=== PATIENT | male | born 1950 | race Caucasian/White ===

== ENCOUNTER 2019-04-24 10:08 | Inpatient (IN) | payer MEDICARE, OTHER ==
[~2019-04-24] VITALS: Ht 172.7 cm; Wt 117.9 kg
--- NOTE | 2019-04-24 10:39 | NUR ---
ED Nurse Note: PT WALKED IN TO ER TODAY FROM HOME. AOX4. PT C/O NAUSEA AND MULTIPLE EPISODES OF VOMITING X 2 DAYS AGO. PT DENIES ABDOMINAL PAIN OR DIARRHEA. ACTIVE BOWEL SOUNDS IN ALL QUADRANTS. ABDOMEN NONDISTENDED AND NONTENDER TO PALPATION. LAST BM X LAST NIGHT WHICH PT STATES WAS FORMED.
[2019-04-24 10:40] VITALS: BP 103/47
--- NOTE | 2019-04-24 10:41 | NUR ---
ED Nurse Note: ON ASSESSMENT, THERE IS AN OBVIOUS SUBLUXATION OF LEFT SHOULDER. PT STATES HE HAD A FALL X 2 MONTHS AGO AND WAS SEEN BY A DOCTOR AND WAS PROVIDED A SPLINT. PT DENIES PAIN AT REST BUT DOES ADMIT TO PAIN WITH ACTIVITY. LIMITED ROM OF LEFT UPPER EXTREMITY.
--- NOTE | 2019-04-24 10:46 | NUR ---
ED Nurse Note: PT INFORMED URINE SPECIMEN IS NEEEDED. PT STATES HE CANNOT URINATE AT THIS TIME AND REFUSES STRAIGHT CATHETER. DR ZHENG AWARE.
[2019-04-24 10:51] LABS: HEMATOCRIT 49.5 % (42.0-52.0); HEMOGLOBIN 17.4 G/DL (14.2-18.0); MEAN CORPUSCULAR VOLUME 88 FL (80-99); PLATELET COUNT 333 K/UL (150-450); RED BLOOD COUNT 5.65 M/UL (4.70-6.10); WHITE BLOOD COUNT 21.6 K/UL (4.8-10.8)
[2019-04-24 10:56] LABS: ANION GAP 18 mmol/L (5-15); BLOOD UREA NITROGEN 127 mg/dL (7-18); CALCIUM 7.7 MG/DL (8.5-10.1); CARBON DIOXIDE 23 MMOL/L (21-32); CHLORIDE 83 MMOL/L (98-107); CREATININE 8.4 MG/DL (0.55-1.30); POTASSIUM 4.6 MMOL/L (3.5-5.1); SODIUM 124 MMOL/L (136-145)
[2019-04-24] MEDS ORDERED: Isovue-300 100ml vial INJ PRN (11:00)
[2019-04-24 11:09] LABS: ALANINE AMINOTRANSFERASE 22 U/L (12-78); ALBUMIN 4.1 G/DL (3.4-5.0); ALBUMIN/GLOBULIN RATIO 1.2 (1.0-2.7); ALKALINE PHOSPHATASE 73 U/L (46-116); ASPARTATE AMINO TRANSFERASE 22 U/L (15-37); BILIRUBIN,TOTAL 1.7 MG/DL (0.2-1.0)
[2019-04-24 11:32] LABS: BILIRUBIN,DIRECT 0.5 MG/DL (0.0-0.3)
--- NOTE | 2019-04-24 11:40 | NUR ---
ED Nurse Note: PT TO CT VIA SHERI.
--- NOTE | 2019-04-24 12:06 | NUR ---
ED Nurse Note: PT BACK FROM CT VIA SHERI.
--- NOTE | 2019-04-24 12:07 | NUR ---
ED Nurse Note: TELE UNIT CALLED FOR PT REPORT. REPORT GIVEN TO MESFIN DYE.
--- NOTE | 2019-04-24 12:07 | NUR ---
Note skyla in EDM - 04/24/19 at 1226 by YAHIR ED Nurse Note: TELE UNIT CALLED FOR PT REPORT. REPORT GIVEN TO MESFIN DYE. PT TAKEN UP TO TELE UNIT VIA MILEY ON SKEWER UP WITH ALL BELONGINGS ACCOMPANIED BY PRIMARY RN AND EMT. VSS.
[2019-04-24] MEDS ORDERED: cefTRIAXone 1 GM in NS 55 ML IVPB ONE (12:15)
--- NOTE | 2019-04-24 12:15 | Diagnostic Imaging Report ---
EXAM: XR Chest, 1 View CLINICAL HISTORY: WEAK TECHNIQUE: Frontal view of the chest. COMPARISON: No relevant prior studies available. FINDINGS: Limitations: The left costophrenic angle is partially excluded from view. Lungs: Unremarkable. The lungs appear clear. No focal consolidation. Pleural space: Unremarkable. The costophrenic angles are sharp. No visible pneumothorax. Heart: Unremarkable. No cardiomegaly. Mediastinum: Unremarkable. Bones/joints: Unremarkable. Tubes, lines and devices: EKG leads overlie the thorax. IMPRESSION: No acute findings.
--- NOTE | 2019-04-24 12:27 | Diagnostic Imaging Report ---
EXAM: CT Abdomen and Pelvis With Intravenous Contrast CLINICAL HISTORY: VOMITING TECHNIQUE: Axial computed tomography images of the abdomen and pelvis with intravenous contrast. CTDI is 18.60 mGy and DLP is 1068 mGy-cm. One or more of the following dose reduction techniques were used: automated exposure control, adjustment of the mA and/or kV according to patient size, use of iterative reconstruction technique. Coronal and sagittal reformatted images were created and reviewed. COMPARISON: No relevant prior studies available. FINDINGS: Lung bases: Mild dependent atelectasis in the right lung base. ABDOMEN: Liver: Unremarkable. No suspicious parenchymal lesions Gallbladder and bile ducts: Unremarkable. No calcified stones. No ductal dilation. Pancreas: Unremarkable. No mass. No ductal dilation. Spleen: Unremarkable. No splenomegaly. Adrenals: 1.7 cm left adrenal nodule with internal density of 6 Hounsfield units, most likely a benign adenoma. Kidneys and ureters: Unremarkable. No solid mass. No hydronephrosis. Stomach and bowel: Moderate distention of proximal small bowel loops with luminal air-fluid levels, with maximum diameter 3.8 cm, most prominent in the left upper quadrant. Transition point is not definitively identified, but may be in the central abdomen. Descending and sigmoid colonic diverticulosis without evidence of acute inflammation. Remainder of the colon appears unremarkable. No mucosal thickening. PELVIS: Appendix: The appendix appears normal. Bladder: Unremarkable. No visible stones. Reproductive: Unremarkable as visualized. ABDOMEN and PELVIS: Intraperitoneal space: Unremarkable. No free air. No significant fluid collection. Bones/joints: Multilevel degenerative changes throughout the visualized spine with disc space loss and endplate osteophytes. No acute fracture. No dislocation. Soft tissues: Fat-containing umbilical herniation. Hernia sac measures 4.9 x 4.0 x 2.8 cm with hernia neck diameter of 1.4 cm. Stranding within the herniated fat may suggest fatty torsion and may be a source of pain. Vasculature: Atherosclerosis throughout the abdominal aorta and its proximal branches. No abdominal aortic aneurysm. Lymph nodes: Unremarkable. No enlarged lymph nodes. IMPRESSION: 1. Moderate distention of proximal small bowel loops with luminal air- fluid levels, with maximum diameter 3.8 cm, most prominent in the left upper quadrant. Transition point is not definitively identified, but may be in the central abdomen. This may represent ileus versus partial obstruction. 2. Fat-containing umbilical herniation. Hernia sac measures 4.9 x 4.0 x 2.8 cm with hernia neck diameter of 1.4 cm. Stranding within the herniated fat may suggest fatty torsion and may be a source of pain. 3. Descending and sigmoid colonic diverticulosis without evidence of acute inflammation. 4. 1.7 cm left adrenal nodule, most likely a benign adenoma.
--- NOTE | 2019-04-24 12:39 | Emergency Room Report ---
History of Present Illness General Chief Complaint: Nausea, Vomiting, and Diarrhea Source: Patient Present Illness HPI 68-year-old male presents ED for evaluation. Patient walked in complaining of nausea and vomiting for the last 2 days. States he is unable to keep any food down. Multiple episodes of vomiting denies any abdominal pain. Denies any fevers or chills. Denies cough. Denies any diarrhea. No other aggravating or relieving factors. Denies any other associated symptoms Allergies: Coded Allergies: No Known Allergies (Unverified , 04/24/19) Patient History Past Medical History: DM, COPD, psych hx Pertinent Family History: none Social History: Denies: smoking, alcohol use, drug use Immunizations: UTD Reviewed Nursing Documentation: PMH: Agreed; PSxH: Agreed Nursing Documentation-PMH Past Medical History: No History, Except For Hx Cardiac Problems: Yes - Hyperlipidemia, Metabolic encephalopathy Hx COPD: Yes Hx Diabetes: Yes History Of Psychiatric Problem: Yes - Schizo Review of Systems All Other Systems: negative except mentioned in HPI Physical Exam Vital Signs Date Time Temp Pulse Resp B/P (MAP) Pulse Ox O2 Delivery O2 Flow Rate FiO2 04/24/19 10:13 98.2 96 20 91/68 (76) 91 Room Air Sp02 EP Interpretation: reviewed, normal General Appearance: no apparent distress, alert, GCS 15, non-toxic Head: normocephalic, atraumatic Eyes: bilateral eye normal inspection, bilateral eye PERRL ENT: hearing grossly normal, normal pharynx, no angioedema, normal voice Neck: full range of motion, supple/symm/no masses Respiratory: chest non-tender, lungs clear, normal breath sounds, speaking full sentences Cardiovascular #1: regular rate, rhythm, no edema Cardiovascular #2: 2+ carotid (R), 2+ carotid (L), 2+ radial (R), 2+ radial (L) , 2+ dorsalis pedis (R), 2+ dorsalis pedis (L) Gastrointestinal: normal bowel sounds, non tender, soft, non-distended, no guarding, no rebound Rectal: deferred Genitourinary: normal inspection, no CVA tenderness Musculoskeletal: back normal, gait/station normal, normal range of motion, non- tender Neurologic: alert, oriented x3, responsive, motor strength/tone normal, sensory intact, speech normal Psychiatric: judgement/insight normal, memory normal, mood/affect normal, no suicidal/homicidal ideation Reflexes: 3+ bicep (R), 3+ bicep (L), 3+ tricep (R), 3+ tricep (L), 3+ knee (R) , 3+ knee (L) Lymphatic: no adenopathy Medical Decision Making Diagnostic Impression: Primary Impression: Leukocytosis Qualified Codes: D72.829 - Elevated white blood cell count, unspecified Additional Impressions: LFT elevation Renal failure Qualified Codes: N17.9 - Acute kidney failure, unspecified Bowel obstruction Qualified Codes: K56.609 - Unspecified intestinal obstruction, unspecified as to partial versus complete obstruction ER Course Hospital Course 68-year-old male presents to ED with vomiting x 2 days Differential diagnoses include: bowel obstruction, dehydration, UTI Clinical course Patient placed on stretcher. air sampling and monitoring. After initial history and physical I ordered labs, IV fluids, Zofran Labs - marked leukocytosis, Hb/Hct stable, BUN/Cr markedly elevated. LFTS elevated. EKG - normal sinus with no acute ischemic changes determined by me X-rayno acute process or consolidation CT abdomen and pelvis - dilated loops of bowel with ? transition. ileus vs SBO IV fluids continued. Given antibiotics. T Dr Basurto consulted Case discussed with Dr. Acosta and he agreed to accept the patient to his service for further care and support I feel this is a highly complex case requiring extensive working including EKG/ Rhythm strip, Xray/CT/US, Blood/urine lab work, repeat exams while in ED, and administration of strong opiates/narcotics for pain control, admission to hospital or close patient follow up. Diagnosis - leukocytosis, LFTs elevated, renal failure, bowel obstruction Patient admitted to telemetry in serious condition Labs Test 04/24/19 10:37 04/24/19 12:18 White Blood Count 21.6 K/UL (4.8-10.8) Red Blood Count 5.65 M/UL (4.70-6.10) Hemoglobin 17.4 G/DL (14.2-18.0) Hematocrit 49.5 % (42.0-52.0) Mean Corpuscular Volume 88 FL (80-99) Mean Corpuscular Hemoglobin 30.7 PG (27.0-31.0) Mean Corpuscular Hemoglobin Concent 35.1 G/DL (32.0-36.0) Red Cell Distribution Width 11.0 % (11.6-14.8) Platelet Count 333 K/UL (150-450) Mean Platelet Volume 7.2 FL (6.5-10.1) Neutrophils (%) (Auto) % (45.0-75.0) Lymphocytes (%) (Auto) % (20.0-45.0) Monocytes (%) (Auto) % (1.0-10.0) Eosinophils (%) (Auto) % (0.0-3.0) Basophils (%) (Auto) % (0.0-2.0) Differential Total Cells Counted 100 Neutrophils % (Manual) 77 % (45-75) Lymphocytes % (Manual) 14 % (20-45) Monocytes % (Manual) 9 % (1-10) Eosinophils % (Manual) 0 % (0-3) Basophils % (Manual) 0 % (0-2) Band Neutrophils 0 % (0-8) Platelet Estimate Adequate Platelet Morphology Normal Red Blood Cell Morphology Normal Sodium Level 124 MMOL/L (136-145) Potassium Level 4.6 MMOL/L (3.5-5.1) Chloride Level 83 MMOL/L (98-107) Carbon Dioxide Level 23 MMOL/L (21-32) Anion Gap 18 mmol/L (5-15) Blood Urea Nitrogen 127 mg/dL (7-18) Creatinine 8.4 MG/DL (0.55-1.30) Estimat Glomerular Filtration Rate 6.4 mL/min (>60) Glucose Level 173 MG/DL (74-106) Calcium Level 7.7 MG/DL (8.5-10.1) Total Bilirubin 1.7 MG/DL (0.2-1.0) Direct Bilirubin 0.5 MG/DL (0.0-0.3) Aspartate Amino Transf (AST/SGOT) 22 U/L (15-37) Alanine Aminotransferase (ALT/SGPT) 22 U/L (12-78) Alkaline Phosphatase 73 U/L (46-116) Total Protein 7.6 G/DL (6.4-8.2) Albumin 4.1 G/DL (3.4-5.0) Globulin 3.5 g/dL Albumin/Globulin Ratio 1.2 (1.0-2.7) Lipase 258 U/L (73-393) EKG Diagnostic Results Rate: normal Rhythm: NSR ST Segments: no acute changes ASA given to the pt in ED: No Rhythm Strip Diag. Results EP Interpretation: yes Rhythm: NSR, no PVC's, no ectopy Chest X-Ray Diagnostic Results Chest X-Ray Diagnostic Results : Chest X-Ray Ordered: Yes # of Views/Limited/Complete: 1 View Indication: Other EP Interpretation: Yes Interpretation: no consolidation, no effusion, no pneumothorax, no acute cardiopulmonary disease Impression: No acute disease Electronically Signed by: Electronically signed by Gerson Alston MD CT/MRI/US Diagnostic Results CT/MRI/US Diagnostic Results : Imaging Test Ordered: CT A/P Impression Lung bases: Mild dependent atelectasis in the right lung base. ABDOMEN: Liver: Unremarkable. No suspicious parenchymal lesions Gallbladder and bile ducts: Unremarkable. No calcified stones. No ductal dilation. Pancreas: Unremarkable. No mass. No ductal dilation. Spleen: Unremarkable. No splenomegaly. Adrenals: 1.7 cm left adrenal nodule with internal density of 6 Hounsfield units , most likely a benign adenoma. Kidneys and ureters: Unremarkable. No solid mass. No hydronephrosis. Stomach and bowel: Moderate distention of proximal small bowel loops with luminal air-fluid levels, with maximum diameter 3.8 cm, most prominent in the left upper quadrant. Transition point is not definitively identified, but may be in the central abdomen. Descending and sigmoid colonic diverticulosis without evidence of acute inflammation. Remainder of the colon appears unremarkable. No mucosal thickening. PELVIS: Appendix: The appendix appears normal. Bladder: Unremarkable. No visible stones. Reproductive: Unremarkable as visualized. ABDOMEN and PELVIS: Intraperitoneal space: Unremarkable. No free air. No significant fluid collection. Bones/joints: Multilevel degenerative changes throughout the visualized spine with disc space loss and endplate osteophytes. No acute fracture. No dislocation. Soft tissues: Fat-containing umbilical herniation. Hernia sac measures 4.9 x 4.0 x 2.8 cm with hernia neck diameter of 1.4 cm. Stranding within the herniated fat may suggest fatty torsion and may be a source of pain. Vasculature: Atherosclerosis throughout the abdominal aorta and its proximal branches. No abdominal aortic aneurysm. Lymph nodes: Unremarkable. No enlarged lymph nodes. IMPRESSION: 1. Moderate distention of proximal small bowel loops with luminal air-fluid levels, with maximum diameter 3.8 cm, most prominent in the left upper quadrant. Transition point is not definitively identified, but may be in the central abdomen. This may represent ileus versus partial obstruction. 2. Fat-containing umbilical herniation. Hernia sac measures 4.9 x 4.0 x 2.8 cm with hernia neck diameter of 1.4 cm. Stranding within the herniated fat may suggest fatty torsion and may be a source of pain. 3. Descending and sigmoid colonic diverticulosis without evidence of acute inflammation. 4. 1.7 cm left adrenal nodule, most likely a benign adenoma. Last Vital Signs Date Time Temp Pulse Resp B/P (MAP) Pulse Ox O2 Delivery O2 Flow Rate FiO2 04/24/19 10:40 98.4 85 21 103/47 96 Room Air Status: improved Disposition: ADMITTED INPATIENT Condition: Serious Referrals: Jorje Acosta MD (PCP) Gerson Alston MD Apr 24, 2019 12:39
--- NOTE | 2019-04-24 13:10 | NUR ---
ED Nurse Note: ALL LABS RESULTED. PT TAKEN UP TO TELEMETRY UNIT VIA GURNEY ON SHREDDING SPECIALIST WITH ALL BELONGINGS ACCOMPANIED BY RN AND EMT. VSS.
--- NOTE | 2019-04-24 14:00 | NUR ---
NURSE NOTES: Received report from MESFIN Minor. Patient arrived to unit in stable condition. No s/sx of SOB, breathing is even and unlabored. Bed is in lowest position, brakes engaged. Call light is kept within easy reach. Will continue to monitor patient.
--- NOTE | 2019-04-24 14:15 | NUR ---
NURSE NOTES: Called Dr. Acosta's given roster number x 3 , no answer, no available voicemail service. Informed charge nurse, nurse gas meter repair supervisor made aware. Will continue to monitor patient.
--- NOTE | 2019-04-24 14:23 | NUR ---
CASE MANAGEMENT: REVIEW 68Y/M PRESENTED TO ED FROM BOARD AND CARE CC: N/V/D X2 DAYS SI: ACUTE KIDNEY FAILURE . SMALL BOWEL OBSTRUCTION T 98.2 HR 96 RR 21 BP 91/68 SAT 91% ROOM AIR WBC 21.6 NA 124 BUN 127 CR 8.4 IS: NS IVF BOLUS X1 ZOFRAN IV X1 CEFTRIAXONE IV X1 PATIENT ADMITTED TO TELEMETRY UNIT 04/24/2019 DCP: PATIENT IS FROM [facility]
--- NOTE | 2019-04-24 14:30 | NUR ---
NURSE NOTES: Made Dr. Acosta aware that patient states he fell 2 weeks ago on left arm and has current pain. Dr. Acosta acknowledged and ordered Tylenol 650 mg Q4HR PO PRN and Tylenol #3 PO PRN for severe pain. Orders entered, noted, and carried out. Will continue to monitor patient.
--- NOTE | 2019-04-24 14:30 | NUR ---
NURSE NOTES: Received admission orders from Dr. Acosta. Orders entered, noted, and carried out. Will continue to monitor patient.
--- NOTE | 2019-04-24 15:00 | NUR ---
NURSE NOTES: Informed Dr. Broussard that singh catheter is unable to be inserted. Attempted 3 times with 16 mosotho and 14 mosotho with charge nurse. All attempts unsuccessful. Called and notified Dr. Aarti MD acknowledged, instructed this nurse to contact Dr. Acosta for urology consult. Noted. Carried out.
--- NOTE | 2019-04-24 15:10 | NUR ---
NURSE NOTES: Called Dr. Acosta regarding unsuccessful singh catheter insertion attempts and Dr. Broussard's instructions. Dr. Acosta acknowledged and ordered Dr. Ford as urology consult. Noted. Carried out.
[2019-04-24] MEDS ORDERED: Tylenol #3 tab (300mg/30mg) ORAL PRN (15:30)
--- NOTE | 2019-04-24 15:30 | NUR ---
NURSE NOTES: Called Dr. Ford and informed MD of urology consult per Dr. Acosta. Dr. Ford acknowledged and informed this nurse to have urology cart ready near room. Urology cart is placed near room. Noted. Will continue to monitor patient.
[2019-04-24 15:43] LABS: CREATINE KINASE 656 U/L (26-308); PHOSPHORUS 10.7 MG/DL (2.5-4.9)
--- NOTE | 2019-04-24 15:57 | Consultation ---
History of Present Illness General Date patient seen: Apr 24, 2019 Reason for Hospitalization: Nausea, Vomiting, and Diarrhea Present Illness HPI This is a very pleasant 68-year-old male who presented to [facility] emergency permit complaining of persistent nausea and emesis for the past 3 days. Patient states that he is been unable to hold down food during this time and began to feel unwell and came to emergency department for evaluation. Patient denies any significant abdominal pain. States last bowel movement was 2 days ago. States last flatus was this morning. CT scan in the emergency department performed and identify potential bowel obstruction and ventral hernia. Surgery called by emergency department physician to evaluate and assist with care. Patient seen, patient evaluated, chart reviewed. Allergies: Coded Allergies: No Known Allergies (Unverified , 04/24/19) Patient History History Provided By: Patient, Medical Record, PMD Healthcare decision maker N Resuscitation status Full Code Advanced Directive on File Past Medical/Surgical History Past Medical/Surgical History: (1) Leukocytosis (2) Renal failure (3) LFT elevation (4) Bowel obstruction Review of Systems Review of Symptoms General ROS: no weight loss or fever Psychological ROS: no depression or mood changes, no memory loss Ophthalmic ROS: no visual changes or eye irritation ENT ROS: no nasal congestion, hearing loss, dizziness Allergy and Immunology ROS: no allergic symptoms or urticaria Hematological and Lymphatic ROS: no swollen glands, unusual bleeding or bruising Endocrine ROS: no polyuria, polydipsia, weight changes, temperature intolerance Respiratory ROS: no cough, shortness of breath, or wheezing Cardiovascular ROS: no chest pain or dyspnea on exertion Gastrointestinal ROS: denies abdominal pain, no bright red blood in stool. Musculoskeletal ROS: no myalgias or arthralgias Neurological ROS: no TIA or stroke symptoms Dermatological ROS: no new or changing skin lesions, rashes or pruritis Physical Exam Physical Exam General appearance: alert, cooperative, no distress, appears stated age Head: Normocephalic, without obvious abnormality, atraumatic Eyes: conjunctivae/corneas clear. PERRL, EOM's intact. Fundi benign Throat: Lips, mucosa, and tongue normal. Teeth and gums normal Neck: supple, symmetrical, trachea midline, no adenopathy, thyroid: not enlarged, symmetric, no tenderness/mass/nodules, no carotid bruit and no JVD Lungs: clear to auscultation bilaterally Heart: regular rate and rhythm, S1, S2 normal, no murmur, click, rub or gallop Abdomen: soft, non-tender. Bowel sounds active, hernia without tenderness, somewhat reducible fat contents. No masses, no organomegaly Extremities: extremities normal, atraumatic, no cyanosis or edema Pulses: 2+ and symmetric Skin: Skin color, texture, turgor normal. No rashes or lesions Neurologic: Grossly normal Last 24 Hour Vital Signs Date Time Temp Pulse Resp B/P (MAP) Pulse Ox O2 Delivery O2 Flow Rate FiO2 04/24/19 14:05 Room Air 04/24/19 13:09 98.3 82 18 106/52 100 Room Air 04/24/19 10:40 98.4 85 21 103/47 96 Room Air 04/24/19 10:13 98.2 96 20 91/68 (76) 91 Room Air Laboratory Tests Test 04/24/19 10:37 04/24/19 12:18 White Blood Count 21.6 K/UL (4.8-10.8) H Red Blood Count 5.65 M/UL (4.70-6.10) Hemoglobin 17.4 G/DL (14.2-18.0) Hematocrit 49.5 % (42.0-52.0) Mean Corpuscular Volume 88 FL (80-99) Mean Corpuscular Hemoglobin 30.7 PG (27.0-31.0) Mean Corpuscular Hemoglobin Concent 35.1 G/DL (32.0-36.0) Red Cell Distribution Width 11.0 % (11.6-14.8) L Platelet Count 333 K/UL (150-450) Mean Platelet Volume 7.2 FL (6.5-10.1) Neutrophils (%) (Auto) % (45.0-75.0) Lymphocytes (%) (Auto) % (20.0-45.0) Monocytes (%) (Auto) % (1.0-10.0) Eosinophils (%) (Auto) % (0.0-3.0) Basophils (%) (Auto) % (0.0-2.0) Differential Total Cells Counted 100 Neutrophils % (Manual) 77 % (45-75) H Lymphocytes % (Manual) 14 % (20-45) L Monocytes % (Manual) 9 % (1-10) Eosinophils % (Manual) 0 % (0-3) Basophils % (Manual) 0 % (0-2) Band Neutrophils 0 % (0-8) Platelet Estimate Adequate Platelet Morphology Normal Red Blood Cell Morphology Normal Sodium Level 124 MMOL/L (136-145) L Potassium Level 4.6 MMOL/L (3.5-5.1) Chloride Level 83 MMOL/L (98-107) L Carbon Dioxide Level 23 MMOL/L (21-32) Anion Gap 18 mmol/L (5-15) H Blood Urea Nitrogen 127 mg/dL (7-18) H Creatinine 8.4 MG/DL (0.55-1.30) H Estimat Glomerular Filtration Rate 6.4 mL/min (>60) Glucose Level 173 MG/DL (74-106) H Uric Acid 15.2 MG/DL (2.6-7.2) H Calcium Level 7.7 MG/DL (8.5-10.1) L Phosphorus Level 10.7 MG/DL (2.5-4.9) H Magnesium Level 1.7 MG/DL (1.8-2.4) L Total Bilirubin 1.7 MG/DL (0.2-1.0) H Direct Bilirubin 0.5 MG/DL (0.0-0.3) H Aspartate Amino Transf (AST/SGOT) 22 U/L (15-37) Alanine Aminotransferase (ALT/SGPT) 22 U/L (12-78) Alkaline Phosphatase 73 U/L (46-116) Total Creatine Kinase 656 U/L (26-308) H Total Protein 7.6 G/DL (6.4-8.2) Albumin 4.1 G/DL (3.4-5.0) Globulin 3.5 g/dL Albumin/Globulin Ratio 1.2 (1.0-2.7) Lipase 258 U/L (73-393) Lactic Acid Level 1.70 mmol/L (0.4-2.0) Height (Feet): 5 Height (Inches): 11.00 Weight (Pounds): 200 Medications Current Medications Medications (Trade) Dose Ordered Sig/Gt Route PRN Reason Start Time Stop Time Status Last Admin Dose Admin Acetaminophen (Tylenol) 650 mg Q4H PRN ORAL Mild Pain/Temp > 100.5 04/24/19 15:30 05/24/19 15:29 Acetaminophen/ Codeine Phosphate (Tylenol #3) 1 tab Q6H PRN ORAL Pain Scale (6-10) 04/24/19 15:30 05/01/19 15:29 Heparin Sodium (Porcine) (Heparin 5000 units/ml) 5,000 units EVERY 12 HOURS SUBQ 04/24/19 21:00 05/24/19 20:59 Iopamidol (Isovue-300 100ml) 100 ml NOW PRN INJ Radiology Procedure 04/24/19 11:00 Sodium Chloride 1,000 ml @ 100 mls/hr Q10H IV 04/24/19 15:30 05/24/19 15:29 Assessment/Plan Problem List: (1) Nausea & vomiting Assessment & Plan: Persistent nausea vomiting for 3 days. Renal insufficiency Does not seem to have clinical bowel obstruction. Nausea and emesis potentially related to fluctuate disturbances. Appreciate nephrology input. We will follow with exams. ICD Codes: R11.2 - Nausea with vomiting, unspecified SNOMED: 38248581 (2) Incarcerated ventral hernia Assessment & Plan: Fat-containing asymptomatic We will monitor while inpatient Can consider outpatient elective repair ICD Codes: K43.6 - Other and unspecified ventral hernia with obstruction, without gangrene SNOMED: 303408961 (3) Bowel obstruction Assessment & Plan: 1. Moderate distention of proximal small bowel loops with luminal air- fluid levels, with maximum diameter 3.8 cm, most prominent in the left upper quadrant. Transition point is not definitively identified, but may be in the central abdomen. This may represent ileus versus partial obstruction. 2. Fat-containing umbilical herniation. Hernia sac measures 4.9 x 4.0 x 2.8 cm with hernia neck diameter of 1.4 cm. Stranding within the herniated fat may suggest fatty torsion and may be a source of pain. 3. Descending and sigmoid colonic diverticulosis without evidence of acute inflammation. 4. 1.7 cm left adrenal nodule, most likely a benign adenoma. Clinically patient does not seem to have a bowel obstruction. Last bowel movement 2 days ago, last flatus this morning, abdomen soft nontender nondistended. CT findings noted and presumably ileus from electrolyte abnormalities. Ventral hernia fat-containing and asymptomatic at this time. Will monitor for now. Okay for renal diet Trend labs A.m. KUB We will follow with recommendations Thank you ICD Codes: K56.609 - Unspecified intestinal obstruction, unspecified as to partial versus complete obstruction SNOMED: 79109624 Qualifiers: Qualified Codes: K56.609 - Unspecified intestinal obstruction, unspecified as to partial versus complete obstruction (4) Leukocytosis ICD Codes: D72.829 - Elevated white blood cell count, unspecified SNOMED: 525096534, 657972877 Qualifiers: Qualified Codes: D72.829 - Elevated white blood cell count, unspecified (5) Renal failure ICD Codes: N19 - Unspecified kidney failure SNOMED: 93738542 Qualifiers: Qualified Codes: N17.9 - Acute kidney failure, unspecified (6) LFT elevation ICD Codes: R94.5 - Abnormal results of liver function studies SNOMED: 609832323, 562955774 César Basurto Apr 24, 2019 15:57
[2019-04-24 16:00] VITALS: BP 120/83
--- NOTE | 2019-04-24 17:00 | NUR ---
NURSE NOTES: Called Dr. Broussard and read back Renal US report. No new orders given at this time. Report to MD that patient states, "have not urinated in 4 weeks." MD aware of bladder scan of 182 cc per renal US. Dr. Broussard acknowledged and informed this nurse will place order himself. Noted. Will continue monitor patient.
--- NOTE | 2019-04-24 18:00 | NUR ---
NURSE NOTES: Called [facility], telephone number on facesheet, and left message regarding list of medications as per Dr. Acosta's instructions. Noted. Awaiting call back. Will continue to monitor patient.
--- NOTE | 2019-04-24 18:07 | Diagnostic Imaging Report ---
EXAM: US Retroperitoneal Limited, Renal CLINICAL HISTORY: RENAL-A TECHNIQUE: Real-time ultrasound of the retroperitoneum (limited) with image documentation. COMPARISON: No relevant prior studies available. FINDINGS: Right kidney: Right kidney measures 1.3 cm. No hydronephrosis. Trace perinephric edema Left kidney: Left kidney measures 11.9 cm. No hydronephrosis. Trace perinephric edema Bladder: Bladder volume is 189 cc. IMPRESSION: No hydronephrosis.
--- NOTE | 2019-04-24 18:38 | Consultation ---
Consult Note Consult Note asked to eval for renal failure ER: 68-year-old male presents ED for evaluation. Patient walked in complaining of nausea and vomiting for the last 2 days. States he is unable to keep any food down. Multiple episodes of vomiting denies any abdominal pain. Denies any fevers or chills. Denies cough. Denies any diarrhea. No other aggravating or relieving factors. Denies any other associated symptoms No Known Allergies (Unverified , 04/24/19) Past Medical History: DM, COPD, psych hx Past Medical History: No History, Except For Hx Cardiac Problems: Yes - Hyperlipidemia, Metabolic encephalopathy Hx COPD: Yes Hx Diabetes: Yes History Of Psychiatric Problem: Yes - Schizo examined confused data reviewed Assessment/Plan Renal failure Acute vs Chronic Rule out Obstruction GI Sxs likely due to renal failure Strong SUGAR Hydrate Monitor renal parameters avoid Nephrotoxics Urine studies Luis Broussard MD Apr 24, 2019 18:38
--- NOTE | 2019-04-24 19:10 | NUR ---
NURSE NOTES: Received patient from MESFIN López patient in stable condition, resting in bed, AOx4, able to make needs known, denies pain at this time, IV site patent,no s/sx of infiltration, phlebitis, bed lowest position, brakes on, call light within reach, will continue to monitor and reassess.
--- NOTE | 2019-04-24 19:35 | NUR ---
HAND-OFF: Report given to MESFIN Carpenter.
[2019-04-24 20:00] VITALS: BP_SYST 113; BP_SYST 99; BP_DIAS 44; BP_DIAS 57
[2019-04-24] MEDS: Heparin 5000 units/ml inj SUBQ SCH (20:31)
[2019-04-24] MEDS: Tamsulosin 0.4mg cap ORAL SCH (20:32)
--- NOTE | 2019-04-24 22:38 | NUR ---
NURSE NOTES: Strong catheter [address] Ford. Patient tolerated well. No adverse reaction noted.
[2019-04-25] VITALS: BP 99/44
--- NOTE | 2019-04-25 03:30 | Consultation ---
DATE OF CONSULTATION: 04/24/2019 UROLOGY CONSULTATION CONSULTING PHYSICIAN: Gerber Ford M.D. REFERRING PHYSICIAN: Jorje Acosta M.D. REASON FOR CONSULTATION: For evaluation of renal insufficiency and difficulty catheterization. HISTORY OF PRESENT ILLNESS: This is a 68-year-old male. He came to the hospital because of nausea, vomiting, diarrhea. He was noted to have renal insufficiency and it is not certain if this is acute or chronic, however, the patient apparently has had some difficulty voiding in the recent past. Bladder scan did not show significant residual urine, however, Strong catheter was attempted to be placed mainly for accurate I's and O's, however, the nursing staff were not able to insert a Strong. Urology evaluation was requested. The patient denies previous prostate surgery. PAST MEDICAL HISTORY: Significant for diabetes, COPD, psychiatric history, hyperlipidemia. PAST SURGICAL HISTORY: Unknown. CURRENT MEDICATIONS: Here in the hospital, the patient is on Rocephin, Colace, Renvela, heparin, Protonix, Flomax, Tylenol. ALLERGIES: No known drug allergies. SOCIAL HISTORY: The patient is currently nonsmoker. REVIEW OF SYSTEMS: As above. FAMILY HISTORY: Noncontributory. PHYSICAL EXAMINATION: GENERAL: Elderly male, in no acute distress. VITAL SIGNS: Temperature is 97.7, blood pressure is 120/83, pulse 81, respirations 17. HEENT: Normocephalic. NECK: Supple. ABDOMEN: Soft. There is mild suprapubic fullness. GENITOURINARY: Reveals normal phallus with coronal hypospadias. RECTAL: Reveals firm prostate which is 40 g. EXTREMITIES: No clubbing or cyanosis. LABORATORY DATA: BUN is 127, creatinine 8.4, and potassium 4.6. White count is 21.6, hemoglobin is 17.4, and platelets are 333,000. PTT is 27. There is no urinalysis on record. DIAGNOSTIC IMAGING STUDIES: The patient had a CT scan of the abdomen and pelvis, there was mention of a 1.7-cm left adrenal nodule, most likely a benign adenoma. Kidneys did not show hydronephrosis. Bladder appeared to be unremarkable. There was mention of an umbilical hernia. The patient also had renal ultrasound and there was no hydronephrosis noted. IMPRESSION: 1. Renal insufficiency, which appears to be acute on chronic. 2. BPH. 3. Lower urinary tract symptoms by history. 4. Possible neurogenic bladder. 5. Adrenal adenoma. 6. Hypospadias. 7. Urethral meatal stricture. PLAN AND DISCUSSION: Again, the patient was evaluated on an urgent basis. The physical exam showed findings consistent with hypospadias. I was not able to identify the true meatus readily. It appeared that his meatus was close to the coronal frenulum. I was eventually able to identify what appeared to be a pinpoint opening which turned out to be the opening of the urethral meatus. I was not able to dilate this easily with sounds. As such, I passed a filiform through it into the bladder and over the filiform, I dilated this to 18-Beninese and at that point, it was still too tight to pass a Bryan to the 16-Beninese Councill tip catheter and at this point, I then used sounds to further dilate the meatal stricture to about 20-Beninese after which with copious lubrication, I was able to pass a 16-Beninese Councill tip catheter over the wire into the bladder. It was in good position. There was return of urine which was yellowish, cloudy, about 400 mL or so. The Strong catheter was then secured to the patient's leg. At this time, I would recommend to keep the Strong catheter indwelling with monitoring of renal function. UA and urine culture can be checked and discontinue with antibiotics and the patient is also to continue with Flomax and he can have a voiding trial in the future once his renal function stabilized. We will also recommend a cystoscopy at some point, which can be done electively to evaluate the lower urinary tract. Thank you for this consultation. Gerber Ford M.D. DR: Gil JOB#: [id number] CC:
[2019-04-25 04:00] VITALS: BP 98/59
[2019-04-25 07:10] LABS: APPEARANCE,URINE CLOUDY; BILIRUBIN, URINE NEGATIVE (NEGATIVE); COLOR,URINE PALE YELLOW; GLUCOSE, URINE (UA) NEGATIVE (NEGATIVE); KETONES,URINE NEGATIVE (NEGATIVE); LEUKOCYTE ESTERASE ,URINE 3+ (NEGATIVE); NITRITE,URINE NEGATIVE (NEGATIVE); PH,URINE 5 (4.5-8.0); PROTEIN,URINE 2+ (NEGATIVE); UROBILINOGEN,URINE NORMAL MG/DL (0.0-1.0)
--- NOTE | 2019-04-25 07:25 | NUR ---
HAND-OFF: Report given to MESFIN Zapata and Amanda TOURE, patient in stable condition.
--- NOTE | 2019-04-25 07:31 | NUR ---
NURSE NOTES: Report given by MESFIN Carpenter. Patient is awake and breakfast at bedside. Patient shows no sign of distress or SOB. Bed at lowest position and break engaged, call light within reach. Strong is intact and draining well. IV fluid is running well, IV site is intact, no sign of tenderness or redness or leaking. Patient's able to feed himself food with right hand.
[2019-04-25 08:00] VITALS: BP 116/65
[2019-04-25 08:16] LABS: BASOPHILS % (AUTO) 0.5 % (0.0-2.0); EOSINOPHILS % (AUTO) 0.3 % (0.0-3.0); HEMATOCRIT 40.1 % (42.0-52.0); LYMPHOCYTES % (AUTO) 16.4 % (20.0-45.0); MEAN CORPUSCULAR VOLUME 89 FL (80-99); MONOCYTES % (AUTO) 9.9 % (1.0-10.0); NEUTROPHILS % (AUTO) 72.9 % (45.0-75.0); PLATELET COUNT 207 K/UL (150-450); RED BLOOD COUNT 4.52 M/UL (4.70-6.10); RED CELL DISTRIBUTION WIDTH 11.2 % (11.6-14.8); WHITE BLOOD COUNT 12.2 K/UL (4.8-10.8)
--- NOTE | 2019-04-25 08:48 | Diagnostic Imaging Report ---
EXAM: XR Abdomen, 2 Views CLINICAL HISTORY: F/U TECHNIQUE: Frontal view of the abdomen/pelvis with upright view of the abdomen. COMPARISON: CT abdomen and pelvis dated 04/24/19 FINDINGS: Intraperitoneal space: No evidence of free air below the diaphragm. Gastrointestinal tract: Moderate stool throughout the rectosigmoid region, raising possibility of constipation. Bowel gas pattern otherwise appears unremarkable. Radiodense catheter overlies the central pelvis, possibly a rectal catheter or Strong catheter. No abnormal distention of small bowel loops. No evidence of pneumatosis intestinalis. Bones/joints: Mild degenerative changes throughout the lumbar spine. IMPRESSION: 1. Moderate stool throughout the rectosigmoid region, raising possibility of constipation. 2. Bowel gas pattern otherwise appears unremarkable.
[2019-04-25 08:53] LABS: CREATINE KINASE 375 U/L (26-308); GAMMA GLUTAMYL TRANSPEPTIDASE 34 U/L (5-85)
[2019-04-25 09:01] LABS: ALANINE AMINOTRANSFERASE 19 U/L (12-78); ALBUMIN 2.7 G/DL (3.4-5.0); ALBUMIN/GLOBULIN RATIO 0.9 (1.0-2.7); ALKALINE PHOSPHATASE 54 U/L (46-116); ANION GAP 16 mmol/L (5-15); ASPARTATE AMINO TRANSFERASE 17 U/L (15-37); BILIRUBIN,TOTAL 0.6 MG/DL (0.2-1.0); BLOOD UREA NITROGEN 124 mg/dL (7-18); CALCIUM 6.3 MG/DL (8.5-10.1); CARBON DIOXIDE 23 MMOL/L (21-32); CHLORIDE 95 MMOL/L (98-107); CHOLESTEROL 129 MG/DL (< 200); HDL CHOLESTEROL 29 MG/DL (40-60); POTASSIUM 3.3 MMOL/L (3.5-5.1); SODIUM 134 MMOL/L (136-145); TRIGLYCERIDES 195 MG/DL (30-150)
[2019-04-25 09:07] LABS: PHOSPHORUS 8.7 MG/DL (2.5-4.9)
--- NOTE | 2019-04-25 09:09 | NUR ---
NURSE NOTES: Left message with Dr. Broussard regarding potassium level of 3.3; awaiting response.
[2019-04-25] MEDS: Docusate 100mg cap ORAL SCH ×3 (09:13→17:37)
[2019-04-25] MEDS: cefTRIAXone 1 GM in D5W 55 ML IVPB SCH (09:14)
[2019-04-25] MEDS: Heparin 5000 units/ml inj SUBQ SCH ×2 (09:15→21:03)
--- NOTE | 2019-04-25 09:15 | Urology Progress Note ---
Assessment/Plan Assessment/Plan: 1. Renal insufficiency, which appears to be acute on chronic, improving. 2. BPH. 3. Lower urinary tract symptoms by history. 4. Possible neurogenic bladder. 5. Adrenal adenoma. 6. Hypospadias. 7. Urethral meatal stricture. maintain singh, do not remove hand irrigated and do PRN monitor renal fxn, improving abx as ordered flomax f/u on urine cx cysto later Subjective Allergies: Coded Allergies: No Known Allergies (Unverified , 04/24/19) Subjective all noted, feels fair Objective Last 24 Hour Vital Signs Date Time Temp Pulse Resp B/P (MAP) Pulse Ox O2 Delivery O2 Flow Rate FiO2 04/25/19 08:00 98.0 86 20 116/65 (82) 95 04/25/19 08:00 88 04/25/19 04:00 97.8 85 18 98/59 (72) 96 04/25/19 04:00 86 04/25/19 00:00 97.6 82 18 99/44 (62) 96 04/25/19 00:00 82 04/24/19 21:00 Room Air 04/24/19 20:00 83 04/24/19 20:00 98.3 81 19 113/57 (75) 99 04/24/19 16:00 97.7 81 17 120/83 (95) 94 04/24/19 16:00 85 04/24/19 14:05 Room Air 04/24/19 13:09 98.3 82 18 106/52 100 Room Air 04/24/19 10:40 98.4 85 21 103/47 96 Room Air 04/24/19 10:13 98.2 96 20 91/68 (76) 91 Room Air Intake and Output 04/24/19 04/25/19 19:00 07:00 Intake Total 138 ml 1641 ml Output Total 600 ml Balance 138 ml 1041 ml Intake Oral 120 ml IV Total 18 ml 1641 ml Output Urine Total 600 ml # Voids 1 1 # Bowel Movements 1 Current Medications Medications (Trade) Dose Ordered Sig/Gt Route PRN Reason Start Time Stop Time Status Last Admin Dose Admin Acetaminophen (Tylenol) 650 mg Q4H PRN ORAL Mild Pain/Temp > 100.5 04/24/19 15:30 05/24/19 15:29 Acetaminophen/ Codeine Phosphate (Tylenol #3) 1 tab Q6H PRN ORAL Pain Scale (6-10) 04/24/19 15:30 05/01/19 15:29 Ceftriaxone Sodium 1 gm/ Dextrose 55 ml @ 110 mls/hr Q24H IVPB 04/25/19 09:00 05/02/19 08:59 Docusate Sodium (Colace) 100 mg THREE TIMES A DAY ORAL 04/25/19 09:00 05/25/19 08:59 Heparin Sodium (Porcine) (Heparin 5000 units/ml) 5,000 units EVERY 12 HOURS SUBQ 04/24/19 21:00 05/24/19 20:59 04/24/19 20:31 Iopamidol (Isovue-300 100ml) 100 ml NOW PRN INJ Radiology Procedure 04/24/19 11:00 Pantoprazole (Protonix) 40 mg EVERY 12 HOURS ORAL 04/24/19 21:00 05/24/19 20:59 04/24/19 20:32 Sevelamer Carbonate (Renvela) 800 mg THREE TIMES A DAY ORAL 04/25/19 09:00 05/25/19 08:59 Sodium Chloride 1,000 ml @ 150 mls/hr Q6H40M IV 04/24/19 18:30 05/24/19 18:29 04/25/19 08:17 Tamsulosin HCl (Flomax) 0.4 mg BEDTIME ORAL 04/24/19 21:00 05/24/19 20:59 04/24/19 20:32 Laboratory Tests 04/24/19 10:37: White Blood Count 21.6H, Red Blood Count 5.65, Hemoglobin 17.4, Hematocrit 49.5 , Mean Corpuscular Volume 88, Mean Corpuscular Hemoglobin 30.7, Mean Corpuscular Hemoglobin Concent 35.1, Red Cell Distribution Width 11.0L, Platelet Count 333, Mean Platelet Volume 7.2, Neutrophils (%) (Auto) , Lymphocytes (%) (Auto) , Monocytes (%) (Auto) , Eosinophils (%) (Auto) , Basophils (%) (Auto) , Differential Total Cells Counted 100, Neutrophils % ( Manual) 77H, Lymphocytes % (Manual) 14L, Monocytes % (Manual) 9, Eosinophils % ( Manual) 0, Basophils % (Manual) 0, Band Neutrophils 0, Platelet Estimate Adequate, Platelet Morphology Normal, Red Blood Cell Morphology Normal, Sodium Level 124L, Potassium Level 4.6, Chloride Level 83L, Carbon Dioxide Level 23, Anion Gap 18H, Blood Urea Nitrogen 127H, Creatinine 8.4H, Estimat Glomerular Filtration Rate 6.4, Glucose Level 173H, Uric Acid 15.2H, Calcium Level 7.7L, Phosphorus Level 10.7H, Magnesium Level 1.7L, Total Bilirubin 1.7H, Direct Bilirubin 0.5H, Aspartate Amino Transf (AST/SGOT) 22, Alanine Aminotransferase ( ALT/SGPT) 22, Alkaline Phosphatase 73, Total Creatine Kinase 656H, Total Protein 7.6, Albumin 4.1, Globulin 3.5, Albumin/Globulin Ratio 1.2, Lipase 258 04/24/19 12:18: Lactic Acid Level 1.70 04/24/19 17:00: Activated Partial Thromboplast Time 27 04/25/19 06:20: Urine Color Pale yellow, Urine Appearance Cloudy, Urine pH 5, Urine Specific [place] 1.020, Urine Protein 2+H, Urine Glucose (UA) Negative, Urine Ketones Negative, Urine Blood 5+H, Urine Nitrite Negative, Urine Bilirubin Negative, Urine Urobilinogen Normal, Urine Leukocyte Esterase 3+H, Urine RBC 5-10H, Urine WBC 60-80H, Urine Squamous Epithelial Cells Few, Urine Bacteria Few, Urine Mucus FewH, Urine Eosinophils None seen 04/25/19 07:13: White Blood Count 12.2H, Red Blood Count 4.52L, Hemoglobin 14.0L, Hematocrit 40.1L, Mean Corpuscular Volume 89, Mean Corpuscular Hemoglobin 31.0, Mean Corpuscular Hemoglobin Concent 35.0, Red Cell Distribution Width 11.2L, Platelet Count 207, Mean Platelet Volume 7.5, Neutrophils (%) (Auto) 72.9, Lymphocytes (%) (Auto) 16.4L, Monocytes (%) (Auto) 9.9, Eosinophils (%) (Auto) 0.3, Basophils (%) (Auto) 0.5, Erythrocyte Sedimentation Rate [Pending], Activated Partial Thromboplast Time 27, Sodium Level 134#L, Potassium Level 3.3L , Chloride Level 95L, Carbon Dioxide Level 23, Anion Gap 16H, Blood Urea Nitrogen 124H, Creatinine 6.0H, Estimat Glomerular Filtration Rate 9.4, Glucose Level 110H, Hemoglobin A1c 5.9, Uric Acid 14.2H, Calcium Level 6.3L, Phosphorus Level 8.7H, Magnesium Level 2.3, Total Bilirubin 0.6, Gamma Glutamyl Transpeptidase 34, Aspartate Amino Transf (AST/SGOT) 17, Alanine Aminotransferase (ALT/SGPT) 19, Alkaline Phosphatase 54, Total Creatine Kinase 375H, C-Reactive Protein, Quantitative 5.2H, Pro-B-Type Natriuretic Peptide 702H , Total Protein 5.6L, Albumin 2.7L, Globulin 2.9, Albumin/Globulin Ratio 0.9L, Triglycerides Level 195H, Cholesterol Level 129, LDL Cholesterol 64, HDL Cholesterol 29L, Cholesterol/HDL Ratio 4.4, Thyroid Stimulating Hormone (TSH) 11.417H Height (Feet): 5 Height (Inches): 11.00 Weight (Pounds): 200 Objective exam stable, singh indwelling minimal bleeding at site urine Gerber Almaraz MD Apr 25, 2019 09:15
--- NOTE | 2019-04-25 10:59 | Nephrology Progress Note ---
Assessment/Plan Problem List: (1) Renal failure (ARF), acute on chronic (2) Hyponatremia (3) Hypothyroidism (4) Hypotension Assessment Renal failure Acute vs Chronic Rule out Obstruction GI Sxs likely due to renal failure mild Rhabdo Plan Now has Strong put in by Uro SUGAR results noted Hydrate Monitor renal parameters avoid Nephrotoxics Phos binders Urine studies allopurinol Subjective ROS Limited/Unobtainable: No Constitutional: Reports: malaise, weakness Objective Objective Last 24 Hour Vital Signs Date Time Temp Pulse Resp B/P (MAP) Pulse Ox O2 Delivery O2 Flow Rate FiO2 04/25/19 09:00 Room Air 04/25/19 08:00 98.0 86 20 116/65 (82) 95 04/25/19 08:00 88 04/25/19 04:00 97.8 85 18 98/59 (72) 96 04/25/19 04:00 86 04/25/19 00:00 97.6 82 18 99/44 (62) 96 04/25/19 00:00 82 04/24/19 21:00 Room Air 04/24/19 20:00 83 04/24/19 20:00 98.3 81 19 113/57 (75) 99 04/24/19 16:00 97.7 81 17 120/83 (95) 94 04/24/19 16:00 85 04/24/19 14:05 Room Air 04/24/19 13:09 98.3 82 18 106/52 100 Room Air Intake and Output 04/24/19 04/25/19 19:00 07:00 Intake Total 138 ml 1641 ml Output Total 600 ml Balance 138 ml 1041 ml Intake Oral 120 ml IV Total 18 ml 1641 ml Output Urine Total 600 ml # Voids 1 1 # Bowel Movements 1 Laboratory Tests 04/24/19 12:18: Lactic Acid Level 1.70 04/24/19 17:00: Activated Partial Thromboplast Time 27 04/25/19 06:20: Urine Color Pale yellow, Urine Appearance Cloudy, Urine pH 5, Urine Specific [place] 1.020, Urine Protein 2+H, Urine Glucose (UA) Negative, Urine Ketones Negative, Urine Blood 5+H, Urine Nitrite Negative, Urine Bilirubin Negative, Urine Urobilinogen Normal, Urine Leukocyte Esterase 3+H, Urine RBC 5-10H, Urine WBC 60-80H, Urine Squamous Epithelial Cells Few, Urine Bacteria Few, Urine Mucus FewH, Urine Eosinophils None seen 04/25/19 07:13: Activated Partial Thromboplast Time 27, White Blood Count 12.2H, Red Blood Count 4.52L, Hemoglobin 14.0L, Hematocrit 40.1L, Mean Corpuscular Volume 89, Mean Corpuscular Hemoglobin 31.0, Mean Corpuscular Hemoglobin Concent 35.0, Red Cell Distribution Width 11.2L, Platelet Count 207, Mean Platelet Volume 7.5, Neutrophils (%) (Auto) 72.9, Lymphocytes (%) (Auto) 16.4L, Monocytes (%) (Auto) 9.9, Eosinophils (%) (Auto) 0.3, Basophils (%) (Auto) 0.5, Erythrocyte Sedimentation Rate 25H, Sodium Level 134#L, Potassium Level 3.3L, Chloride Level 95L, Carbon Dioxide Level 23, Anion Gap 16H, Blood Urea Nitrogen 124H, Creatinine 6.0H, Estimat Glomerular Filtration Rate 9.4, Glucose Level 110H, Hemoglobin A1c 5.9, Uric Acid 14.2H, Calcium Level 6.3L, Phosphorus Level 8.7H, Magnesium Level 2.3, Total Bilirubin 0.6, Gamma Glutamyl Transpeptidase 34, Aspartate Amino Transf (AST/SGOT) 17, Alanine Aminotransferase (ALT/SGPT) 19, Alkaline Phosphatase 54, Total Creatine Kinase 375H, C-Reactive Protein, Quantitative 5.2H, Pro-B-Type Natriuretic Peptide 702H, Total Protein 5.6L, Albumin 2.7L, Globulin 2.9, Albumin/Globulin Ratio 0.9L, Triglycerides Level 195H, Cholesterol Level 129, LDL Cholesterol 64, HDL Cholesterol 29L, Cholesterol/HDL Ratio 4.4, Thyroid Stimulating Hormone (TSH) 11.417H Height (Feet): 5 Height (Inches): 11.00 Weight (Pounds): 200 General Appearance: no apparent distress Cardiovascular: normal rate Respiratory/Chest: decreased breath sounds Abdomen: distended Luis Broussard MD Apr 25, 2019 10:59
[2019-04-25 12:00] VITALS: BP 117/49
--- NOTE | 2019-04-25 12:00 | NUR ---
NURSE NOTES: P200 mattress applied.
--- NOTE | 2019-04-25 14:00 | Surgery Progress Note ---
Surgery Progress Note Subjective Symptoms: improved Additional Comments states he feels better today no n/v/f/c tolerating diet passing flatus. no BM yet Objective Last 24 Hour Vital Signs Date Time Temp Pulse Resp B/P (MAP) Pulse Ox O2 Delivery O2 Flow Rate FiO2 04/25/19 12:00 98.3 77 20 117/49 (71) 96 04/25/19 09:00 Room Air 04/25/19 08:00 98.0 86 20 116/65 (82) 95 04/25/19 08:00 88 04/25/19 04:00 97.8 85 18 98/59 (72) 96 04/25/19 04:00 86 04/25/19 00:00 97.6 82 18 99/44 (62) 96 04/25/19 00:00 82 04/24/19 21:00 Room Air 04/24/19 20:00 83 04/24/19 20:00 98.3 81 19 113/57 (75) 99 04/24/19 16:00 97.7 81 17 120/83 (95) 94 04/24/19 16:00 85 04/24/19 14:05 Room Air I&O Intake and Output 04/24/19 04/25/19 18:59 06:59 Intake Total 120 ml 1509 ml Output Total 600 ml Balance 120 ml 909 ml Intake Oral 120 ml IV Total 1509 ml Output Urine Total 600 ml # Voids 1 1 # Bowel Movements 1 Cardiovascular: RSR Respiratory: clear Abdomen: soft, flat, non-tender, present bowel sounds, non-distended Extremities: no tenderness, no cyanosis Laboratory Tests Test 04/24/19 17:00 04/25/19 06:20 04/25/19 07:13 Activated Partial Thromboplast Time 27 SEC (23-33) 27 SEC (23-33) Urine Color Pale yellow Urine Appearance Cloudy Urine pH 5 (4.5-8.0) Urine Specific [place] 1.020 (1.005-1.035) Urine Protein 2+ (NEGATIVE) H Urine Glucose (UA) Negative (NEGATIVE) Urine Ketones Negative (NEGATIVE) Urine Blood 5+ (NEGATIVE) H Urine Nitrite Negative (NEGATIVE) Urine Bilirubin Negative (NEGATIVE) Urine Urobilinogen Normal MG/DL (0.0-1.0) Urine Leukocyte Esterase 3+ (NEGATIVE) H Urine RBC 5-10 /HPF (0 - 0) H Urine WBC 60-80 /HPF (0 - 0) H Urine Squamous Epithelial Cells Few /LPF (NONE/OCC) Urine Bacteria Few /HPF (NONE) Urine Mucus Few /LPF (NONE/OCC) H Urine Eosinophils None seen (NONE SEEN) White Blood Count 12.2 K/UL (4.8-10.8) H Red Blood Count 4.52 M/UL (4.70-6.10) L Hemoglobin 14.0 G/DL (14.2-18.0) L Hematocrit 40.1 % (42.0-52.0) L Mean Corpuscular Volume 89 FL (80-99) Mean Corpuscular Hemoglobin 31.0 PG (27.0-31.0) Mean Corpuscular Hemoglobin Concent 35.0 G/DL (32.0-36.0) Red Cell Distribution Width 11.2 % (11.6-14.8) L Platelet Count 207 K/UL (150-450) Mean Platelet Volume 7.5 FL (6.5-10.1) Neutrophils (%) (Auto) 72.9 % (45.0-75.0) Lymphocytes (%) (Auto) 16.4 % (20.0-45.0) L Monocytes (%) (Auto) 9.9 % (1.0-10.0) Eosinophils (%) (Auto) 0.3 % (0.0-3.0) Basophils (%) (Auto) 0.5 % (0.0-2.0) Erythrocyte Sedimentation Rate 25 MM/HR (0-20) H Sodium Level 134 MMOL/L (136-145) #L Potassium Level 3.3 MMOL/L (3.5-5.1) L Chloride Level 95 MMOL/L (98-107) L Carbon Dioxide Level 23 MMOL/L (21-32) Anion Gap 16 mmol/L (5-15) H Blood Urea Nitrogen 124 mg/dL (7-18) H Creatinine 6.0 MG/DL (0.55-1.30) H Estimat Glomerular Filtration Rate 9.4 mL/min (>60) Glucose Level 110 MG/DL (74-106) H Hemoglobin A1c 5.9 % (4.3-6.0) Uric Acid 14.2 MG/DL (2.6-7.2) H Calcium Level 6.3 MG/DL (8.5-10.1) L Phosphorus Level 8.7 MG/DL (2.5-4.9) H Magnesium Level 2.3 MG/DL (1.8-2.4) Total Bilirubin 0.6 MG/DL (0.2-1.0) Gamma Glutamyl Transpeptidase 34 U/L (5-85) Aspartate Amino Transf (AST/SGOT) 17 U/L (15-37) Alanine Aminotransferase (ALT/SGPT) 19 U/L (12-78) Alkaline Phosphatase 54 U/L (46-116) Total Creatine Kinase 375 U/L (26-308) H C-Reactive Protein, Quantitative 5.2 mg/dL (0.00-0.90) H Pro-B-Type Natriuretic Peptide 702 pg/mL (0-125) H Total Protein 5.6 G/DL (6.4-8.2) L Albumin 2.7 G/DL (3.4-5.0) L Globulin 2.9 g/dL Albumin/Globulin Ratio 0.9 (1.0-2.7) L Triglycerides Level 195 MG/DL (30-150) H Cholesterol Level 129 MG/DL (< 200) LDL Cholesterol 64 mg/dL (<100) HDL Cholesterol 29 MG/DL (40-60) L Cholesterol/HDL Ratio 4.4 (3.3-4.4) Thyroid Stimulating Hormone (TSH) 11.417 uiU/mL (0.358-3.740) Plan Problems: (1) Nausea & vomiting Assessment & Plan: Persistent nausea vomiting for 3 days. Renal insufficiency Does not seem to have clinical bowel obstruction. Nausea and emesis potentially related to fluctuate disturbances. We will follow with exams. (2) Incarcerated ventral hernia Assessment & Plan: Fat-containing asymptomatic We will monitor while inpatient Can consider outpatient elective repair (3) Bowel obstruction Assessment & Plan: 1. Moderate distention of proximal small bowel loops with luminal air- fluid levels, with maximum diameter 3.8 cm, most prominent in the left upper quadrant. Transition point is not definitively identified, but may be in the central abdomen. This may represent ileus versus partial obstruction. 2. Fat-containing umbilical herniation. Hernia sac measures 4.9 x 4.0 x 2.8 cm with hernia neck diameter of 1.4 cm. Stranding within the herniated fat may suggest fatty torsion and may be a source of pain. 3. Descending and sigmoid colonic diverticulosis without evidence of acute inflammation. 4. 1.7 cm left adrenal nodule, most likely a benign adenoma. Clinically patient does not seem to have a bowel obstruction. Last bowel movement 2 days ago, last flatus this morning, abdomen soft nontender nondistended. CT findings noted and presumably ileus from electrolyte abnormalities. Ventral hernia fat-containing and asymptomatic at this time. Will monitor for now. Okay for renal diet Trend labs A.m. KUB We will follow with recommendations Thank you (4) Leukocytosis (5) Renal failure (6) LFT elevation César Basurto Apr 25, 2019 14:00
[2019-04-25] MEDS ORDERED: Tubing IV Secondary IV ONE (15:21)
[2019-04-25 16:00] VITALS: BP 101/59
--- NOTE | 2019-04-25 19:07 | NUR ---
NURSE NOTES: Pt having 1 second sinus pauses on tele. Made Dr. Meza aware who ordered physician consult for Dr. Ahumada. Order noted and carried out.
--- NOTE | 2019-04-25 19:10 | NUR ---
NURSE NOTES: Received report from MESFIN Zapata, patient in stable condition, resting comfortably in bed, no acute distress, able to make needs known, denies pain at this time.IV site R wrist patent, no s/sx no infection, , f/c patent, draining to gravity, bed lowest position, brakes on, call light within reach.
--- NOTE | 2019-04-25 19:10 | History & Physical ---
History of Present Illness General Date patient seen: Apr 25, 2019 Time patient seen: 18:46 Reason for Hospitalization: Nausea, Vomiting, and Diarrhea Present Illness HPI 68 yo male who resides at [facility] has chronic LE edema and poor UO. For the past several days he has had N/V/D. No known malignancy. No hx of chest pain. Allergies: Coded Allergies: No Known Allergies (Unverified , 04/24/19) Patient History Limited by: medical condition - Psychosis Healthcare decision maker N Resuscitation status Full Code Advanced Directive on File Past Medical/Surgical History Past Medical/Surgical History: (1) Psychosis (2) Hypothyroidism Review of Systems Review of Symptoms General ROS: no weight loss or fever Psychological ROS: Psychosis Ophthalmic ROS: no visual changes or eye irritation ENT ROS: no nasal congestion, hearing loss, dizziness Allergy and Immunology ROS: no allergic symptoms or urticaria Hematological and Lymphatic ROS: no swollen glands, unusual bleeding or bruising Endocrine ROS: no polyuria, polydipsia, weight changes, temperature intolerance Respiratory ROS: mild DRUMMOND Cardiovascular ROS: no chest pain Gastrointestinal ROS: Poor appetite, nausea, vomiting Musculoskeletal ROS: mild arthralgias Neurological ROS: no TIA or stroke symptoms Dermatological ROS: Poor hygine Physical Exam Physical Exam General appearance: alert, cooperative, no distress, appears stated age Head: Normocephalic, without obvious abnormality, atraumatic Eyes: conjunctivae/corneas clear. PERRL, EOM's intact. Fundi benign Throat: Lips, mucosa, and tongue normal. Teeth and gums normal Neck: supple, symmetrical, trachea midline, no adenopathy, thyroid: not enlarged, symmetric, no tenderness/mass/nodules, no carotid bruit and no JVD Lungs: clear to auscultation bilaterally Heart: regular rate and rhythm, S1, S2 normal, no murmur, click, rub or gallop Abdomen: soft, non-tender. Bowel sounds normal. No masses, no organomegaly Extremities: extremities normal, atraumatic, no cyanosis or edema Pulses: 2+ and symmetric Skin: Skin color, texture, turgor normal. No rashes or lesions Neurologic: Grossly normal Last 24 Hour Vital Signs Date Time Temp Pulse Resp B/P (MAP) Pulse Ox O2 Delivery O2 Flow Rate FiO2 04/25/19 16:00 80 04/25/19 16:00 97.7 82 20 101/59 (73) 94 7/7/19 12:00 98.3 77 20 117/49 (71) 96 04/25/19 12:00 78 04/25/19 09:00 Room Air 04/25/19 08:00 98.0 86 20 116/65 (82) 95 04/25/19 08:00 88 04/25/19 04:00 97.8 85 18 98/59 (72) 96 04/25/19 04:00 86 04/25/19 00:00 97.6 82 18 99/44 (62) 96 04/25/19 00:00 82 04/24/19 21:00 Room Air 04/24/19 20:00 83 04/24/19 20:00 98.3 81 19 113/57 (75) 99 Intake and Output 04/24/19 04/25/19 18:59 06:59 Intake Total 120 ml 1509 ml Output Total 600 ml Balance 120 ml 909 ml Intake Oral 120 ml IV Total 1509 ml Output Urine Total 600 ml # Voids 1 1 # Bowel Movements 1 Laboratory Tests Test 04/25/19 06:20 04/25/19 07:13 Urine Color Pale yellow Urine Appearance Cloudy Urine pH 5 (4.5-8.0) Urine Specific [place] 1.020 (1.005-1.035) Urine Protein 2+ (NEGATIVE) H Urine Glucose (UA) Negative (NEGATIVE) Urine Ketones Negative (NEGATIVE) Urine Blood 5+ (NEGATIVE) H Urine Nitrite Negative (NEGATIVE) Urine Bilirubin Negative (NEGATIVE) Urine Urobilinogen Normal MG/DL (0.0-1.0) Urine Leukocyte Esterase 3+ (NEGATIVE) H Urine RBC 5-10 /HPF (0 - 0) H Urine WBC 60-80 /HPF (0 - 0) H Urine Squamous Epithelial Cells Few /LPF (NONE/OCC) Urine Bacteria Few /HPF (NONE) Urine Mucus Few /LPF (NONE/OCC) H Urine Eosinophils None seen (NONE SEEN) White Blood Count 12.2 K/UL (4.8-10.8) H Red Blood Count 4.52 M/UL (4.70-6.10) L Hemoglobin 14.0 G/DL (14.2-18.0) L Hematocrit 40.1 % (42.0-52.0) L Mean Corpuscular Volume 89 FL (80-99) Mean Corpuscular Hemoglobin 31.0 PG (27.0-31.0) Mean Corpuscular Hemoglobin Concent 35.0 G/DL (32.0-36.0) Red Cell Distribution Width 11.2 % (11.6-14.8) L Platelet Count 207 K/UL (150-450) Mean Platelet Volume 7.5 FL (6.5-10.1) Neutrophils (%) (Auto) 72.9 % (45.0-75.0) Lymphocytes (%) (Auto) 16.4 % (20.0-45.0) L Monocytes (%) (Auto) 9.9 % (1.0-10.0) Eosinophils (%) (Auto) 0.3 % (0.0-3.0) Basophils (%) (Auto) 0.5 % (0.0-2.0) Erythrocyte Sedimentation Rate 25 MM/HR (0-20) H Activated Partial Thromboplast Time 27 SEC (23-33) Sodium Level 134 MMOL/L (136-145) #L Potassium Level 3.3 MMOL/L (3.5-5.1) L Chloride Level 95 MMOL/L (98-107) L Carbon Dioxide Level 23 MMOL/L (21-32) Anion Gap 16 mmol/L (5-15) H Blood Urea Nitrogen 124 mg/dL (7-18) H Creatinine 6.0 MG/DL (0.55-1.30) H Estimat Glomerular Filtration Rate 9.4 mL/min (>60) Glucose Level 110 MG/DL (74-106) H Hemoglobin A1c 5.9 % (4.3-6.0) Uric Acid 14.2 MG/DL (2.6-7.2) H Calcium Level 6.3 MG/DL (8.5-10.1) L Phosphorus Level 8.7 MG/DL (2.5-4.9) H Magnesium Level 2.3 MG/DL (1.8-2.4) Total Bilirubin 0.6 MG/DL (0.2-1.0) Gamma Glutamyl Transpeptidase 34 U/L (5-85) Aspartate Amino Transf (AST/SGOT) 17 U/L (15-37) Alanine Aminotransferase (ALT/SGPT) 19 U/L (12-78) Alkaline Phosphatase 54 U/L (46-116) Total Creatine Kinase 375 U/L (26-308) H C-Reactive Protein, Quantitative 5.2 mg/dL (0.00-0.90) H Pro-B-Type Natriuretic Peptide 702 pg/mL (0-125) H Total Protein 5.6 G/DL (6.4-8.2) L Albumin 2.7 G/DL (3.4-5.0) L Globulin 2.9 g/dL Albumin/Globulin Ratio 0.9 (1.0-2.7) L Triglycerides Level 195 MG/DL (30-150) H Cholesterol Level 129 MG/DL (< 200) LDL Cholesterol 64 mg/dL (<100) HDL Cholesterol 29 MG/DL (40-60) L Cholesterol/HDL Ratio 4.4 (3.3-4.4) Thyroid Stimulating Hormone (TSH) 11.417 uiU/mL (0.358-3.740) Height (Feet): 5 Height (Inches): 11.00 Weight (Pounds): 200 Medications Current Medications Medications (Trade) Dose Ordered Sig/Gt Route PRN Reason Start Time Stop Time Status Last Admin Dose Admin Acetaminophen (Tylenol) 650 mg Q4H PRN ORAL Mild Pain/Temp > 100.5 04/24/19 15:30 05/24/19 15:29 Acetaminophen/ Codeine Phosphate (Tylenol #3) 1 tab Q6H PRN ORAL Pain Scale (6-10) 04/24/19 15:30 05/01/19 15:29 Ceftriaxone Sodium 1 gm/ Dextrose 55 ml @ 110 mls/hr Q24H IVPB 04/25/19 09:00 05/02/19 08:59 04/25/19 09:14 Docusate Sodium (Colace) 100 mg THREE TIMES A DAY ORAL 04/25/19 09:00 05/25/19 08:59 04/25/19 17:37 Heparin Sodium (Porcine) (Heparin 5000 units/ml) 5,000 units EVERY 12 HOURS SUBQ 04/24/19 21:00 05/24/19 20:59 04/25/19 09:15 Iopamidol (Isovue-300 100ml) 100 ml NOW PRN INJ Radiology Procedure 04/24/19 11:00 Pantoprazole (Protonix) 40 mg EVERY 12 HOURS ORAL 04/24/19 21:00 05/24/19 20:59 04/25/19 09:13 Sevelamer Carbonate (Renvela) 2,400 mg THREE TIMES A DAY ORAL 04/25/19 13:00 05/25/19 08:59 04/25/19 17:37 Sodium Chloride 1,000 ml @ 150 mls/hr Q6H40M IV 04/24/19 18:30 05/24/19 18:29 04/25/19 16:49 Tamsulosin HCl (Flomax) 0.4 mg BEDTIME ORAL 04/24/19 21:00 05/24/19 20:59 04/24/19 20:32 Objective Narrative HEENT: THELMA ORTIZ General: Obese male no acute distress Neck: No JVD or bruite Lymphatic: No adenopathy Lung: Few crackles posteriorly, decreased breath sound CV: RRR, S1 S2 he has 3+ edema of LE Neuro: Alert, nl speech, no focal weakness, CN II to XII grossly intact, can ambulate Ext: 3+ edema. Assessment/Plan Problem List: (1) Bowel obstruction ICD Codes: K56.609 - Unspecified intestinal obstruction, unspecified as to partial versus complete obstruction SNOMED: 83463790 Qualifiers: Qualified Codes: K56.609 - Unspecified intestinal obstruction, unspecified as to partial versus complete obstruction (2) Leukocytosis ICD Codes: D72.829 - Elevated white blood cell count, unspecified SNOMED: 373595055, 417370192 Qualifiers: Qualified Codes: D72.829 - Elevated white blood cell count, unspecified (3) Renal failure ICD Codes: N19 - Unspecified kidney failure SNOMED: 75826177 Qualifiers: Qualified Codes: N17.9 - Acute kidney failure, unspecified (4) LFT elevation ICD Codes: R94.5 - Abnormal results of liver function studies SNOMED: 528533672, 631315565 (5) Incarcerated ventral hernia ICD Codes: K43.6 - Other and unspecified ventral hernia with obstruction, without gangrene SNOMED: 652584327 (6) Nausea & vomiting ICD Codes: R11.2 - Nausea with vomiting, unspecified SNOMED: 10577553 (7) Renal failure (ARF), acute on chronic ICD Codes: N17.9 - Acute kidney failure, unspecified; N18.9 - Chronic kidney disease, unspecified SNOMED: 502542467 (8) Hyponatremia ICD Codes: E87.1 - Hypo-osmolality and hyponatremia SNOMED: 83726959 (9) Hypothyroidism ICD Codes: E03.9 - Hypothyroidism, unspecified SNOMED: 97022742 (10) Hypotension ICD Codes: I95.9 - Hypotension, unspecified SNOMED: 32223096 (11) Psychosis ICD Codes: F29 - Unspecified psychosis not due to a substance or known physiological condition SNOMED: 87215204 Status: stable Assessment/Plan: He will be hydrated, nephrology consult will be obtained. He will be empirically treated with Rocephin and his psych meds will be continued. Most likely his nausea/vomiting is due to nephrotic syndrome. Will follow his labs. [facility] declaration INPATIENT level of care is warranted for this patient because patient is a 89 year old with who presents with suspicion of . I have a high level of concern because . Patient is at high risk for . Plan of care/treatment include . Patient care is expected to be greater than 2 midnights. OBSERVATION level of care is warranted for this patient. Patient is a 89 year old with who presents with . Patient will be admitted for 1 midnight, but if additional night(s) is/are necessary, patient will be converted to inpatient status for the entire hospitalization Disposition: Once the patient is stable to leave the hospital, I anticipate the patient will likely be discharged to the following environment: Estimated discharge date: I spent 70 minutes on this patient's case, and minutes was dedicated to counseling and/or care coordination. MIPS ([employer]-based Incentive Payment System) Applicable CPT: 96232, 54180 CHECK ALL THAT ARE MET: Measure #5 (CHF): All ages. Prescribe DAE/ARB upon discharge for patients with left ventricular systolic dysfunction. If not, the reason is clearly documented in the medical chart. Measure #8 (CHF): All ages. Prescribe a beta nixon upon discharge for patients with left ventricular systolic dysfunction. If not, the reason is clearly documented in the medical chart. Measure #47 Advance care plan or surrogate decision maker documented in the medical record. Measure #130 The provider has documented, updated, or reviewed the patients current medication list and has documented it in the patients note. Measure #374 (All): Send report to referring provider. Measure #407(Sepsis due to MSSA bacteremia): Age 18+ Patient treated with a beta-lactam antibiotic (Nafcillin, Oxacillin or Cefazolin) as definitive therapy. MEDICAL COMPLEXITY High complexity medical decision making (need 2/3 categories) Problem - need 4 points Acute/new problem with new plan for workup (4 points, 1 max) Acute/new problem without additional workup (3 points, 1 max) Unstable chronic problem actively being managed (2 point each, 2 max) Stable chronic problem actively being managed (1 point each, 2 max) Self-limited/transient process (constipation, muscle ache, etc) (1 point each , 2 max) Data - need 4 points Reviewed labs/imaging studies (1 points, 2 max) Independent review of imaging (EKG, xrays, etc) (2 points, 2 max) Discussed case with consult/other MD/RN (2 points, 2 max) High Risk - qualify if have one of the following: Severe exacerbation of acute problem, acute mental status change, IV narcotics , monitoring drug levels (vancomycin, INR, tacrolimus etc) Jorje Acosta MD Apr 25, 2019 19:10
--- NOTE | 2019-04-25 19:12 | NUR ---
HAND-OFF: Report given to MESFIN Carpenter. Pt is in stable condition; plan of care endorsed.
[2019-04-25 20:00] VITALS: BP 115/59
[2019-04-25] MEDS: Tamsulosin 0.4mg cap ORAL SCH (21:00)
[2019-04-26] VITALS: BP 128/68
[2019-04-26 04:00] VITALS: BP 125/67
--- NOTE | 2019-04-26 07:24 | NUR ---
HAND-OFF: Report given to MESFIN Sullivan, patient in stable condition, plan of care endorsed.
[2019-04-26 08:00] VITALS: BP 114/63
--- NOTE | 2019-04-26 08:01 | NUR ---
Pt. in bed AOx3. Pt is sitting in bed about to have breakfast. 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 Pt iv site is patten and running NS. Bed is locked and in lowest position. Call light is next to pt.
[2019-04-26 08:46] LABS: ANION GAP 12 mmol/L (5-15); BLOOD UREA NITROGEN 115 mg/dL (7-18); CALCIUM 6.5 MG/DL (8.5-10.1); CARBON DIOXIDE 25 MMOL/L (21-32); CHLORIDE 98 MMOL/L (98-107); POTASSIUM 3.3 MMOL/L (3.5-5.1); SODIUM 135 MMOL/L (136-145)
[2019-04-26 08:50] LABS: ALANINE AMINOTRANSFERASE 14 U/L (12-78); ALBUMIN/GLOBULIN RATIO 1.4 (1.0-2.7); ALKALINE PHOSPHATASE 59 U/L (46-116); ASPARTATE AMINO TRANSFERASE 14 U/L (15-37); BILIRUBIN,TOTAL 0.4 MG/DL (0.2-1.0)
--- NOTE | 2019-04-26 08:50 | Urology Progress Note ---
Assessment/Plan Status: stable Assessment/Plan: 1. Renal insufficiency, which appears to be acute on chronic, improving. 2. BPH. 3. Lower urinary tract symptoms by history. 4. Possible neurogenic bladder. 5. Adrenal adenoma. 6. Hypospadias. 7. Urethral meatal stricture. maintain singh, placed 04/24, do not remove hand irrigate PRN monitor renal fxn, improving abx as ordered flomax f/u on urine cx cysto later Subjective Allergies: Coded Allergies: No Known Allergies (Unverified , 04/24/19) Subjective all noted, feels fair Objective Last 24 Hour Vital Signs Date Time Temp Pulse Resp B/P (MAP) Pulse Ox O2 Delivery O2 Flow Rate FiO2 04/26/19 08:18 Room Air 04/26/19 08:00 97.8 90 18 114/63 (80) 95 04/26/19 04:00 81 04/26/19 04:00 98.2 81 18 125/67 (86) 94 04/26/19 00:00 98.5 82 20 128/68 (88) 94 04/26/19 00:00 77 04/25/19 21:00 Room Air 04/25/19 20:00 81 04/25/19 20:00 98.3 81 17 115/59 (77) 94 04/25/19 16:00 80 04/25/19 16:00 97.7 82 20 101/59 (73) 94 04/25/19 12:00 98.3 77 20 117/49 (71) 96 04/25/19 12:00 78 04/25/19 09:00 Room Air Intake and Output 04/25/19 04/26/19 19:00 07:00 Intake Total 2665 ml 1707.5 ml Output Total 750 ml 1200 ml Balance 1915 ml 507.5 ml Intake Oral 810 ml 360 ml IV Total 1855 ml 1347.5 ml Output Urine Total 750 ml 1200 ml # Voids 2 Microbiology Date/Time Source Procedure Growth Status 04/24/19 12:15 Blood Blood Culture - Preliminary NO GROWTH AFTER 24 HOURS Resulted 04/25/19 06:20 Urine,Clean Catch Urine Culture - Preliminary Resulted Current Medications Medications (Trade) Dose Ordered Sig/Gt Route PRN Reason Start Time Stop Time Status Last Admin Dose Admin Acetaminophen (Tylenol) 650 mg Q4H PRN ORAL Mild Pain/Temp > 100.5 04/24/19 15:30 05/24/19 15:29 Acetaminophen/ Codeine Phosphate (Tylenol #3) 1 tab Q6H PRN ORAL Pain Scale (6-10) 04/24/19 15:30 05/01/19 15:29 Ceftriaxone Sodium 1 gm/ Dextrose 55 ml @ 110 mls/hr Q24H IVPB 04/25/19 09:00 05/02/19 08:59 04/25/19 09:14 Docusate Sodium (Colace) 100 mg THREE TIMES A DAY ORAL 04/25/19 09:00 05/25/19 08:59 04/25/19 17:37 Heparin Sodium (Porcine) (Heparin 5000 units/ml) 5,000 units EVERY 12 HOURS SUBQ 04/24/19 21:00 05/24/19 20:59 04/25/19 21:03 Iopamidol (Isovue-300 100ml) 100 ml NOW PRN INJ Radiology Procedure 04/24/19 11:00 Pantoprazole (Protonix) 40 mg EVERY 12 HOURS ORAL 04/24/19 21:00 05/24/19 20:59 04/25/19 21:00 Sevelamer Carbonate (Renvela) 2,400 mg THREE TIMES A DAY ORAL 04/25/19 13:00 05/25/19 08:59 04/25/19 17:37 Sodium Chloride 1,000 ml @ 150 mls/hr Q6H40M IV 04/24/19 18:30 05/24/19 18:29 04/26/19 03:54 Tamsulosin HCl (Flomax) 0.4 mg BEDTIME ORAL 04/24/19 21:00 05/24/19 20:59 04/25/19 21:00 Laboratory Tests 04/26/19 04:00: Urine Eosinophils None seen 04/26/19 06:10: Sodium Level 135L, Potassium Level 3.3L, Chloride Level 98, Carbon Dioxide Level 25, Anion Gap 12, Blood Urea Nitrogen 115H, Creatinine 4.0H, Estimat Glomerular Filtration Rate 15.1, Glucose Level 107H, Uric Acid [Pending], Calcium Level 6.5L, Phosphorus Level [Pending], Magnesium Level [Pending], Total Bilirubin [Pending], Aspartate Amino Transf (AST/SGOT) [Pending], Alanine Aminotransferase (ALT/SGPT) [Pending], Alkaline Phosphatase [Pending], Total Creatine Kinase [Pending], Total Protein [Pending], Albumin [Pending], Globulin [Pending], Cortisol AM Sample [Pending] Height (Feet): 5 Height (Inches): 11.00 Weight (Pounds): 200 Objective exam stable, singh indwelling minimal bleeding at site urine Gerber Almaraz MD Apr 26, 2019 08:50
[2019-04-26 08:52] LABS: CREATINE KINASE 260 U/L (26-308)
[2019-04-26] MEDS: cefTRIAXone 1 GM in D5W 55 ML IVPB SCH (09:09)
[2019-04-26] MEDS: Docusate 100mg cap ORAL SCH ×3 (09:10→18:31)
[2019-04-26] MEDS: Heparin 5000 units/ml inj SUBQ SCH ×2 (09:12→20:48)
--- NOTE | 2019-04-26 09:59 | NUR ---
CASE MANAGEMENT: NOTE INTERQUAL MET
--- NOTE | 2019-04-26 10:06 | NUR ---
SWALLOW/SPEECH THERAPY NOTE AND D/C SUMMARY: REFERRED FOR SWALLOW EVALUATION BY DR TRIANA, SEE REPORT IN MINI BAR ATTENDANT CARE ACTIVITY SECTION. DYSPHAGIA RISK FACTORS FOR THIS 68 Y.O.M.: ACUTE NAUSEA AND VOMITING FOR 3 DAYS, DIARRHEA, BOWEL OBSTRUCTION, LEUKOCYTOSIS, HYPOTHYROIDISM, RENAL FAILURE, LUNGS CLEAR TO FEW CRACKLES, ROOM AIR, AND HAS GOOD RR AT 18 (LOW BP). H/O GERD (ON MEDS AND DENIES SYMPTOMS),COPD, MET ENCEPHALOPATHY, SMOKING (SINCE 8 YEARS OLD UNTIL THE LAST FEW DAYS CIGARETTES 4 PER DAY, NO ETOH), PSYCH (SCHIZOPHRENIA NOT ON MEDS), HTN. DM (PATIENT DENIES DM). ALERT AND DENIES DYSPHAGIA. RECALLED TIME AND WHY HE IS IN HOSPITAL, DID NOT RECALL HOSPITAL NAME. ABLE TO EXPRESS BASIC NEEDS BUT HAS SOME NO POLST NOR ADVANCE DIRECTIVE REGARDING TUBE FEEDINGS IF NEEDS. AT BOARD AND CARE FACILITY ON REGULAR TEXTURE DIET AND THIN LIQUIDS PER PATIENT. CURRENTLY ON A SOFT CHEW DIET AND THIN LIQUIDS WITH GOOD INTAKE 75 TO 100%. INITIAL IMPRESSIONS: GROSSLY FUNCTIONAL SWALLOW ON THIN LIQUIDS (SEQUENTIAL SIPS VIA CUP BUT NEEDED TO TAKE ONE BREATH OR JUST DID NOT UNDERSTAND INSTRUCTIONS) WITH FAIR HYOLARYNGEAL EXCURSION, NO ORAL RESIDUE AND NO OVERT S/S OF ASPIRATION. QUESTIONABLE SILENT ASPIRATION RISK BUT DID WELL ON THE EAT-10 QUESTIONNAIRE AND DID NOT APPEAR AT HIGH RISK FOR ASPIRATION. ADEQUATE INTAKE WITH MOST OF HIS TEETH (JUST MISSING SOME MOLARS) RECOMMENDATIONS: CONTINUE WITH CURRENT DIET OF SOFT CHEW AND THIN LIQUIDS WITH GENERAL REFLUX PRECAUTIONS AND ONE TO ONE FEEDING (VERSUS JUST ASSIST PATIENT IS ABLE TO FEED HIMSELF). NO NEED FOR SKILLED MINI BAR ATTENDANT SERVICES AT THIS TIME SO WILL D/C FROM SERVICES. 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 D/W RN AND PATIENT AND LEFT MESSAGE WITH PHYSICIAN. Addendum: 04/26/19 at 1009 by ADAM GIL MINI BAR ATTENDANT DIET TYPE PER RD (NOT SEEN YET BUT MAY HAVE DM THOUGH PATIENT DENIES, ? RELIABLE AND HAS SCHIZOPHRENIA) POSTED GENERAL REFLUX PRECAUTIONS Addendum: 04/26/19 at 1031 by ADAM MARCOS on renal diet (? need for bland also given on GERD meds check with RD)
[2019-04-26 12:00] VITALS: BP 118/57
--- NOTE | 2019-04-26 12:00 | NUR ---
NURSE NOTES: calcium gluconate was not given because potassium was running. Also since pt was complaining of pain while potassium was being infused, infused rate was lowered to 50ml/hr.
--- NOTE | 2019-04-26 12:27 | Nephrology Progress Note ---
Assessment/Plan Problem List: (1) Renal failure (ARF), acute on chronic (2) Hyponatremia (3) Hypothyroidism (4) Hypotension Assessment Renal failure Acute vs Chronic Rule out Obstruction GI Sxs likely due to renal failure mild Rhabdo Plan Calcium PO Vit D Now has Strong put in by Uro SUGAR results noted continue Hydrate Monitor renal parameters avoid Nephrotoxics Phos binders Urine studies allopurinol po Med surg Subjective ROS Limited/Unobtainable: No Constitutional: Reports: other - more responsive Objective Objective Last 24 Hour Vital Signs Date Time Temp Pulse Resp B/P (MAP) Pulse Ox O2 Delivery O2 Flow Rate FiO2 04/26/19 08:18 Room Air 04/26/19 08:00 97.8 90 18 114/63 (80) 95 04/26/19 04:00 81 04/26/19 04:00 98.2 81 18 125/67 (86) 94 04/26/19 00:00 98.5 82 20 128/68 (88) 94 04/26/19 00:00 77 04/25/19 21:00 Room Air 04/25/19 20:00 81 04/25/19 20:00 98.3 81 17 115/59 (77) 94 04/25/19 16:00 80 04/25/19 16:00 97.7 82 20 101/59 (73) 94 Intake and Output 04/25/19 04/26/19 19:00 07:00 Intake Total 2665 ml 1707.5 ml Output Total 750 ml 1200 ml Balance 1915 ml 507.5 ml Intake Oral 810 ml 360 ml IV Total 1855 ml 1347.5 ml Output Urine Total 750 ml 1200 ml # Voids 2 Current Medications Medications (Trade) Dose Ordered Sig/Gt Route PRN Reason Start Time Stop Time Status Last Admin Dose Admin Acetaminophen (Tylenol) 650 mg Q4H PRN ORAL Mild Pain/Temp > 100.5 04/24/19 15:30 05/24/19 15:29 Acetaminophen/ Codeine Phosphate (Tylenol #3) 1 tab Q6H PRN ORAL Pain Scale (6-10) 04/24/19 15:30 05/01/19 15:29 Allopurinol (Allopurinol) 300 mg DAILY ORAL 04/26/19 11:45 05/26/19 11:44 04/26/19 12:21 Calcium Carbonate (Os-Dami) 1,250 mg THREE TIMES A DAY ORAL 04/26/19 13:00 05/26/19 12:59 04/26/19 12:23 Calcium Gluconate 2 gm/Sodium Chloride 130 ml @ 130 mls/hr ONCE IVPB 04/26/19 13:00 04/26/19 14:00 Ceftriaxone Sodium 1 gm/ Dextrose 55 ml @ 110 mls/hr Q24H IVPB 04/25/19 09:00 05/02/19 08:59 04/26/19 09:09 Docusate Sodium (Colace) 100 mg THREE TIMES A DAY ORAL 04/25/19 09:00 05/25/19 08:59 04/26/19 12:22 Ergocalciferol (Drisdol) 50,000 intlu QWEEK ORAL 04/26/19 17:00 05/26/19 16:59 Heparin Sodium (Porcine) (Heparin 5000 units/ml) 5,000 units EVERY 12 HOURS SUBQ 04/24/19 21:00 05/24/19 20:59 04/26/19 09:12 Iopamidol (Isovue-300 100ml) 100 ml NOW PRN INJ Radiology Procedure 04/24/19 11:00 Pantoprazole (Protonix) 40 mg EVERY 12 HOURS ORAL 04/24/19 21:00 05/24/19 20:59 04/26/19 09:10 Potassium Chloride 100 ml @ 100 mls/hr Q1H IVPB 04/26/19 12:00 04/26/19 15:59 04/26/19 12:18 Sevelamer Carbonate (Renvela) 800 mg THREE TIMES A DAY ORAL 04/26/19 13:00 05/25/19 08:59 04/26/19 12:22 Sodium Chloride 1,000 ml @ 150 mls/hr Q6H40M IV 04/24/19 18:30 05/24/19 18:29 04/26/19 10:45 Tamsulosin HCl (Flomax) 0.4 mg BEDTIME ORAL 04/24/19 21:00 05/24/19 20:59 04/25/19 21:00 Laboratory Tests 04/26/19 04:00: Urine Eosinophils None seen 04/26/19 06:10: Sodium Level 135L, Potassium Level 3.3L, Chloride Level 98, Carbon Dioxide Level 25, Anion Gap 12, Blood Urea Nitrogen 115H, Creatinine 4.0H, Estimat Glomerular Filtration Rate 15.1, Glucose Level 107H, Uric Acid 12.5H, Calcium Level 6.5L, Phosphorus Level 5.0H, Magnesium Level 2.0, Total Bilirubin 0.4, Aspartate Amino Transf (AST/SGOT) 14L, Alanine Aminotransferase (ALT/SGPT) 14, Alkaline Phosphatase 59, Total Creatine Kinase 260, Total Protein 5.2L, Albumin 3.0L, Globulin 2.2, Albumin/Globulin Ratio 1.4, Cortisol AM Sample [Pending] Height (Feet): 5 Height (Inches): 11.00 Weight (Pounds): 200 General Appearance: no apparent distress Cardiovascular: normal rate Respiratory/Chest: lungs clear Abdomen: distended Luis Broussard MD Apr 26, 2019 12:27
[2019-04-26] MEDS ORDERED: Calcium Gluconate 10% 2 GM in NS 110 ML IVPB SCH ×2 (13:00→20:00)
--- NOTE | 2019-04-26 13:00 | NUR ---
NURSE NOTES: Pt complaining of pain because potassium was infusing. reduced rate from 100ml/hr to 50ml/hr. Only 3 bags were given in tele unit. 4th to be given in medsurge.
--- NOTE | 2019-04-26 14:13 | Surgery Progress Note ---
Surgery Progress Note Subjective Symptoms: improved, pain absent, tolerating diet, passing flatus, BM Objective Last 24 Hour Vital Signs Date Time Temp Pulse Resp B/P (MAP) Pulse Ox O2 Delivery O2 Flow Rate FiO2 04/26/19 12:00 97.5 85 20 118/57 (77) 95 04/26/19 11:30 84 04/26/19 08:18 Room Air 04/26/19 08:00 97.8 90 18 114/63 (80) 95 04/26/19 07:28 81 04/26/19 04:00 81 04/26/19 04:00 98.2 81 18 125/67 (86) 94 04/26/19 00:00 98.5 82 20 128/68 (88) 94 04/26/19 00:00 77 04/25/19 21:00 Room Air 04/25/19 20:00 81 04/25/19 20:00 98.3 81 17 115/59 (77) 94 04/25/19 16:00 80 04/25/19 16:00 97.7 82 20 101/59 (73) 94 I&O Intake and Output 04/25/19 04/26/19 19:00 07:00 Intake Total 2665 ml 1707.5 ml Output Total 750 ml 1200 ml Balance 1915 ml 507.5 ml Intake Oral 810 ml 360 ml IV Total 1855 ml 1347.5 ml Output Urine Total 750 ml 1200 ml # Voids 2 Cardiovascular: RSR Respiratory: clear Abdomen: soft, flat, non-tender, present bowel sounds, non-distended Extremities: no edema, no tenderness, no cyanosis Laboratory Tests Test 04/26/19 04:00 04/26/19 06:10 Urine Eosinophils None seen (NONE SEEN) Sodium Level 135 MMOL/L (136-145) L Potassium Level 3.3 MMOL/L (3.5-5.1) L Chloride Level 98 MMOL/L (98-107) Carbon Dioxide Level 25 MMOL/L (21-32) Anion Gap 12 mmol/L (5-15) Blood Urea Nitrogen 115 mg/dL (7-18) H Creatinine 4.0 MG/DL (0.55-1.30) H Estimat Glomerular Filtration Rate 15.1 mL/min (>60) Glucose Level 107 MG/DL (74-106) H Uric Acid 12.5 MG/DL (2.6-7.2) H Calcium Level 6.5 MG/DL (8.5-10.1) L Phosphorus Level 5.0 MG/DL (2.5-4.9) H Magnesium Level 2.0 MG/DL (1.8-2.4) Total Bilirubin 0.4 MG/DL (0.2-1.0) Aspartate Amino Transf (AST/SGOT) 14 U/L (15-37) L Alanine Aminotransferase (ALT/SGPT) 14 U/L (12-78) Alkaline Phosphatase 59 U/L (46-116) Total Creatine Kinase 260 U/L (26-308) Total Protein 5.2 G/DL (6.4-8.2) L Albumin 3.0 G/DL (3.4-5.0) L Globulin 2.2 g/dL Albumin/Globulin Ratio 1.4 (1.0-2.7) Cortisol AM Sample Pending Plan Problems: (1) Nausea & vomiting Assessment & Plan: Persistent nausea vomiting for 3 days. Renal insufficiency Does not seem to have clinical bowel obstruction. Nausea and emesis potentially related to electrolyte disturbances. We will follow with exams. improving likely ileus resolving (2) Incarcerated ventral hernia Assessment & Plan: Fat-containing asymptomatic We will monitor while inpatient Can consider outpatient elective repair (3) Bowel obstruction Assessment & Plan: 1. Moderate distention of proximal small bowel loops with luminal air- fluid levels, with maximum diameter 3.8 cm, most prominent in the left upper quadrant. Transition point is not definitively identified, but may be in the central abdomen. This may represent ileus versus partial obstruction. 2. Fat-containing umbilical herniation. Hernia sac measures 4.9 x 4.0 x 2.8 cm with hernia neck diameter of 1.4 cm. Stranding within the herniated fat may suggest fatty torsion and may be a source of pain. 3. Descending and sigmoid colonic diverticulosis without evidence of acute inflammation. 4. 1.7 cm left adrenal nodule, most likely a benign adenoma. Clinically patient does not seem to have a bowel obstruction. Last bowel movement 2 days ago, last flatus this morning, abdomen soft nontender nondistended. CT findings noted and presumably ileus from electrolyte abnormalities. Ventral hernia fat-containing and asymptomatic at this time. Will monitor for now. Okay for renal diet Trend labs We will follow with recommendations Thank you (4) Leukocytosis (5) Renal failure (6) LFT elevation César Basurto Apr 26, 2019 14:13
--- NOTE | 2019-04-26 15:53 | Infectious Diseases Prog Note ---
Assessment/Plan Assessment/Plan Full consult dictated: A) 1) gram + blood cultures, ? bacteremia vs contaminant 2) sepsis 3) uti 4) ileus > sbo 5) SANTANA P) 1) vancomycin and cefepime 2) check cultures, labs 3) surgery f/u 4) thank you Subjective Allergies: Coded Allergies: No Known Allergies (Unverified , 04/24/19) Objective Vital Signs Last 24 Hour Vital Signs Date Time Temp Pulse Resp B/P (MAP) Pulse Ox O2 Delivery O2 Flow Rate FiO2 04/26/19 12:00 97.5 85 20 118/57 (77) 95 04/26/19 11:30 84 04/26/19 08:18 Room Air 04/26/19 08:00 97.8 90 18 114/63 (80) 95 04/26/19 07:28 81 04/26/19 04:00 81 04/26/19 04:00 98.2 81 18 125/67 (86) 94 04/26/19 00:00 98.5 82 20 128/68 (88) 94 04/26/19 00:00 77 04/25/19 21:00 Room Air 04/25/19 20:00 81 04/25/19 20:00 98.3 81 17 115/59 (77) 94 04/25/19 16:00 80 04/25/19 16:00 97.7 82 20 101/59 (73) 94 Height (Feet): 5 Height (Inches): 11.00 Weight (Pounds): 200 Microbiology Date/Time Source Procedure Growth Status 04/24/19 12:15 Blood Blood Culture - Preliminary Resulted 04/24/19 12:00 Blood Blood Culture - Preliminary NO GROWTH AFTER 24 HOURS Resulted 04/25/19 06:20 Urine,Clean Catch Urine Culture - Preliminary Resulted Laboratory Tests Test 04/26/19 04:00 04/26/19 06:10 Urine Eosinophils None seen (NONE SEEN) Sodium Level 135 MMOL/L (136-145) L Potassium Level 3.3 MMOL/L (3.5-5.1) L Chloride Level 98 MMOL/L (98-107) Carbon Dioxide Level 25 MMOL/L (21-32) Anion Gap 12 mmol/L (5-15) Blood Urea Nitrogen 115 mg/dL (7-18) H Creatinine 4.0 MG/DL (0.55-1.30) H Estimat Glomerular Filtration Rate 15.1 mL/min (>60) Glucose Level 107 MG/DL (74-106) H Uric Acid 12.5 MG/DL (2.6-7.2) H Calcium Level 6.5 MG/DL (8.5-10.1) L Phosphorus Level 5.0 MG/DL (2.5-4.9) H Magnesium Level 2.0 MG/DL (1.8-2.4) Total Bilirubin 0.4 MG/DL (0.2-1.0) Aspartate Amino Transf (AST/SGOT) 14 U/L (15-37) L Alanine Aminotransferase (ALT/SGPT) 14 U/L (12-78) Alkaline Phosphatase 59 U/L (46-116) Total Creatine Kinase 260 U/L (26-308) Total Protein 5.2 G/DL (6.4-8.2) L Albumin 3.0 G/DL (3.4-5.0) L Globulin 2.2 g/dL Albumin/Globulin Ratio 1.4 (1.0-2.7) Cortisol AM Sample Pending Current Medications Medications (Trade) Dose Ordered Sig/Gt Route PRN Reason Start Time Stop Time Status Last Admin Dose Admin Acetaminophen (Tylenol) 650 mg Q4H PRN ORAL Mild Pain/Temp > 100.5 04/24/19 15:30 05/24/19 15:29 Acetaminophen/ Codeine Phosphate (Tylenol #3) 1 tab Q6H PRN ORAL Pain Scale (6-10) 04/24/19 15:30 05/01/19 15:29 Allopurinol (Allopurinol) 300 mg DAILY ORAL 04/26/19 11:45 05/26/19 11:44 04/26/19 12:21 Calcium Carbonate (Os-Dami) 1,250 mg THREE TIMES A DAY ORAL 04/26/19 13:00 05/26/19 12:59 04/26/19 12:23 Ceftriaxone Sodium 1 gm/ Dextrose 55 ml @ 110 mls/hr Q24H IVPB 04/25/19 09:00 05/02/19 08:59 04/26/19 09:09 Docusate Sodium (Colace) 100 mg THREE TIMES A DAY ORAL 04/25/19 09:00 05/25/19 08:59 04/26/19 12:22 Ergocalciferol (Drisdol) 50,000 intlu QWEEK ORAL 04/26/19 17:00 05/26/19 16:59 Heparin Sodium (Porcine) (Heparin 5000 units/ml) 5,000 units EVERY 12 HOURS SUBQ 04/24/19 21:00 05/24/19 20:59 04/26/19 09:12 Iopamidol (Isovue-300 100ml) 100 ml NOW PRN INJ Radiology Procedure 04/24/19 11:00 Levothyroxine Sodium (Synthroid) 50 mcg DAILY@0630 ORAL 04/27/19 06:30 05/27/19 06:29 Pantoprazole (Protonix) 40 mg EVERY 12 HOURS ORAL 04/24/19 21:00 05/24/19 20:59 04/26/19 09:10 Potassium Chloride 100 ml @ 100 mls/hr Q1H IVPB 04/26/19 12:00 04/26/19 15:59 04/26/19 15:07 Sevelamer Carbonate (Renvela) 800 mg THREE TIMES A DAY ORAL 04/26/19 13:00 05/25/19 08:59 04/26/19 12:22 Sodium Chloride 1,000 ml @ 150 mls/hr Q6H40M IV 04/24/19 18:30 05/24/19 18:29 04/26/19 10:45 Tamsulosin HCl (Flomax) 0.4 mg BEDTIME ORAL 04/24/19 21:00 05/24/19 20:59 04/25/19 21:00 Annita Proctor MD Apr 26, 2019 15:53
[2019-04-26 16:00] VITALS: BP 125/62
--- NOTE | 2019-04-26 16:24 | NUR ---
NURSE NOTES:WOUND CARE NOTES:Pt presented on admission with non-blanchable erythema without induration sacrum .Pt denied tenderness when sacrum when minimally palpated. . Both heels are callused and blanchable. No other skin concerns noted. Pt educated on wound prevention. Encouraged to re[position as frequently as able to tolerate or at least hourly to relieve pressure .Pt verbalized understanding. Pt also noted to be incontinent of B and B and instructed to notify staff when soiled to prevent further skin breakdown. Recommendation: Apply Moisture Barrier Paste to sacrum and buttocks with each perineal care. Encourage and assist as needed to reposition at least every 2hours or as tolerated. Off-load heels with pillow.
[2019-04-26] MEDS ORDERED: Vitamin D 50,000 units cap ORAL SCH (17:00)
[2019-04-26] MEDS ORDERED: Vancomycin 1.5gm Premix IVPB SCH (17:00)
--- NOTE | 2019-04-26 17:00 | NUR ---
NURSE NOTES: received pt from Tele room 205 transferred to med surg room 415-1, came on gurney, on P200 mattress, no complaint of pain or discomfort. On room air, receives KCl IVPB through right hand access, no sign of infiltration noted. Pt also has Strong catheter Fr 16, draining yellow urine. Bed locked at the lowest position possible, call light within easy reach, siderails up x2. pt in fall precautions, wearing yellow gown and socks, yellow band and on bed alarm.
--- NOTE | 2019-04-26 17:18 | NUR ---
HAND-OFF: Report given to Nickie TOURE. 3rd potassium bag is running at 50ml/hr because it is burning. 4th will be rescheduled with pharmacy because antibiotics need to be given. Also Calcium glucante is pending and will be given as soon as antibiotics and potassium is finished. Called lab to repeat blood culture as per doctors order. Pt in stable condition. belonging were checked with Nickie TOURE. IV is running at this time IV site patent and intact.
[2019-04-26] MEDS ORDERED: Tylenol #3 tab (300mg/30mg) ORAL PRN (17:36)
--- NOTE | 2019-04-26 18:00 | NUR ---
NURSE NOTES: not given cefepime at this time as it was just given at 17:30pm.
--- NOTE | 2019-04-26 18:47 | Cardiac Electrophysiology PN ---
Subjective Subjective [id number] Objective Last 24 Hour Vital Signs Date Time Temp Pulse Resp B/P (MAP) Pulse Ox O2 Delivery O2 Flow Rate FiO2 04/26/19 16:00 97.7 79 18 125/62 (83) 96 04/26/19 12:00 97.5 85 20 118/57 (77) 95 04/26/19 11:30 84 04/26/19 08:18 Room Air 04/26/19 08:00 97.8 90 18 114/63 (80) 95 04/26/19 07:28 81 04/26/19 04:00 81 04/26/19 04:00 98.2 81 18 125/67 (86) 94 04/26/19 00:00 98.5 82 20 128/68 (88) 94 04/26/19 00:00 77 04/25/19 21:00 Room Air 04/25/19 20:00 81 04/25/19 20:00 98.3 81 17 115/59 (77) 94 Intake and Output 04/25/19 04/26/19 18:59 06:59 Intake Total 2665 ml 1707.5 ml Output Total 750 ml 1200 ml Balance 1915 ml 507.5 ml Intake Oral 810 ml 360 ml IV Total 1855 ml 1347.5 ml Output Urine Total 750 ml 1200 ml # Voids 2 Laboratory Tests Test 04/26/19 04:00 04/26/19 06:10 Urine Eosinophils None seen (NONE SEEN) Sodium Level 135 MMOL/L (136-145) L Potassium Level 3.3 MMOL/L (3.5-5.1) L Chloride Level 98 MMOL/L (98-107) Carbon Dioxide Level 25 MMOL/L (21-32) Anion Gap 12 mmol/L (5-15) Blood Urea Nitrogen 115 mg/dL (7-18) H Creatinine 4.0 MG/DL (0.55-1.30) H Estimat Glomerular Filtration Rate 15.1 mL/min (>60) Glucose Level 107 MG/DL (74-106) H Uric Acid 12.5 MG/DL (2.6-7.2) H Calcium Level 6.5 MG/DL (8.5-10.1) L Phosphorus Level 5.0 MG/DL (2.5-4.9) H Magnesium Level 2.0 MG/DL (1.8-2.4) Total Bilirubin 0.4 MG/DL (0.2-1.0) Aspartate Amino Transf (AST/SGOT) 14 U/L (15-37) L Alanine Aminotransferase (ALT/SGPT) 14 U/L (12-78) Alkaline Phosphatase 59 U/L (46-116) Total Creatine Kinase 260 U/L (26-308) Total Protein 5.2 G/DL (6.4-8.2) L Albumin 3.0 G/DL (3.4-5.0) L Globulin 2.2 g/dL Albumin/Globulin Ratio 1.4 (1.0-2.7) Cortisol AM Sample Pending Microbiology Date/Time Source Procedure Growth Status 04/24/19 12:15 Blood Blood Culture - Preliminary Resulted 04/24/19 12:00 Blood Blood Culture - Preliminary NO GROWTH AFTER 24 HOURS Resulted 04/25/19 06:20 Urine,Clean Catch Urine Culture - Preliminary Resulted Bob Ahumada MD Apr 26, 2019 18:47
--- NOTE | 2019-04-26 19:00 | NUR ---
HAND-OFF: Report given to MESFIN Aquino.
[2019-04-26 20:00] VITALS: BP 129/56
[2019-04-26] MEDS ORDERED: Vancomycin 275 ML IVPB SCH (20:00)
--- NOTE | 2019-04-26 20:17 | NUR ---
NURSE NOTES: Received patient in bed, on bedrest, P [address], on room air,Strong in place, draining well, IV site is clean and intact. Call light is within reach, bed is in low position, locked and alarm is on, will monitor for safety and comfort.
[2019-04-26] MEDS: Tamsulosin 0.4mg cap ORAL SCH (20:45)
--- NOTE | 2019-04-26 23:15 | Consultation ---
DATE OF CONSULTATION: 04/26/2019 INFECTIOUS DISEASES CONSULTATION CONSULTING PHYSICIAN: Annita Proctor M.D. ATTENDING PHYSICIAN: Jorje Acosta M.D. REFERRING PHYSICIAN: Jorje Acosta M.D.7 REASON FOR CONSULTATION: Gram-positive blood cultures, sepsis, UTI, possible small bowel obstruction, leukocytosis. CHIEF COMPLAINT: The patient's chief complaint coming into the hospital is renal failure, leukocytosis, possible sepsis. HISTORY OF PRESENT ILLNESS: This is a 68-year-old male who comes into [facility] with multiple issues including nausea, vomiting, leukocytosis, and renal failure. Workup shows that he had a CT scan of the abdomen and pelvis, which showed small bowel obstruction versus ileus. The patient was seen by Surgery and felt it was most likely ileus. The patient also seen by Urology and a Strong is in place. The patient has renal failure, is being seen by Nephrology. Workup shows that he has significantly positive urinalysis and likely has a complicated UTI. He also has positive blood cultures with Gram-positive organisms in clusters. Identification is pending. He also has possible sepsis and elevated white count. Infectious Diseases consultation is requested for antibiotic management. The patient is on Rocephin. I am going to change vancomycin and cefepime. His renal failure is improving. MAR was noted. Orders were noted. Notes were reviewed. The patient is not a very good historian, but is able to answer some questions. REVIEW OF SYSTEMS: GENERAL: He does have a Strong. He is responsive. He has no fever or chills. No night sweats or weight loss mentioned. HEAD AND NECK: No head pain or neck pain. CARDIAC: No chest pain. GASTROINTESTINAL: He came in with nausea and vomiting. Currently, no nausea, vomiting, or diarrhea. GENITOURINARY: He has a Strong. PULMONARY: No productive cough. No shortness of breath, or hemoptysis. SKIN: No rash or itching. EXTREMITIES: No extremity pain. NEUROLOGIC: No seizures. No headache or change in vision. He does have generalized fatigue. No focal weakness. PAST MEDICAL HISTORY: The patient's past medical history includes the history of the following. The patient likely has a past medical history of chronic kidney disease and renal failure, is right now in acute renal failure. He has a history of elevated LFTs, history of ventral hernia, history of hypernatremia, hypothyroidism, history of psychosis. He is anemic also. He has history of diabetes mellitus, history of COPD, history of psychiatric disease, history of schizophrenia, history of hyperlipidemia, dyslipidemia, history of metabolic encephalopathy. No history of hypertension mentioned. ALLERGIES: No known drug allergies. No antibiotic allergies. SOCIAL HISTORY: There is no mention of smoking, alcohol, or drug abuse. FAMILY HISTORY: Noncontributory. Negative for exposure to tuberculosis or cancer. MEDICATIONS: Upon reviewing the MAR, the patient is on following medications. He is on levothyroxine. He is on vancomycin and cefepime. I stopped the Rocephin. He is on ergocalciferol. He is on Renvela or sevelamer carbonate. He is on calcium carbonate. He is on potassium chloride. He is on allopurinol. He is on docusate or Colace, heparin, pantoprazole, tamsulosin or Flomax. He is on acetaminophen. Outside medications were noted and reconciliated. PHYSICAL EXAMINATION: VITAL SIGNS: Temperature is 97.5, pulse rate 85, respiratory rate 20, blood pressure 118/57, saturation is 95%. Pulse rate on admission was 96, respiratory rate on admission was 21. GENERAL: Alert and responsive, no acute distress. HEAD AND NECK: Oral exam, no thrush. Eye exam, no icterus. Neck is supple. No JVD. Normocephalic. HEART: Regular. No obvious gallop or murmur. No friction rub. ABDOMEN: Soft. Positive bowel sounds. Nontender. LUNGS: Few bilateral rhonchi. No rhonchi or rales. Mostly clear bilaterally. SKIN: No rash. MUSCULOSKELETAL: No effusions. Legs are without cellulitis. No septic arthritis. PERIPHERAL VASCULAR: No cyanosis. GENITOURINARY: He has a Strong. Urine is slightly cloudy. LINES: Line sites without phlebitis. NEUROLOGIC: Generalized weakness and responsive. LABORATORY AND DIAGNOSTIC DATA: Laboratory data as follows: Initial creatinine on admission was 8.4, now creatinine is 4.0. White count initially was 21.6 with hemoglobin 17.4, currently hemoglobin 14 and white count 12.2. Urinalysis had 3+ leukocyte esterase, 6-8 white blood cells. Blood cultures with Gram-positive organisms in one bottle, Gram-positive cocci in clusters. Urine culture pending. IMAGING STUDIES: Chest x-ray showed no acute disease, no acute findings. CT scan of the abdomen and pelvis showed moderate distention of the proximal bowel loops with air-fluid levels, ileus versus partial bowel obstruction and umbilical herniation noted. Report was noted. Chest x-ray negative. ASSESSMENT AND PLAN: 1. The patient has possible Gram-positive bacteremia versus contaminant. This patient also could have possible sepsis with elevated white count and SIRS criteria. The patient has UTI, likely complicated UTI. The patient more likely has ileus more so than small bowel obstruction in reviewing surgery notes. At this time, continue with cefepime and vancomycin for possible Gram-positive bacteremia, sepsis, and UTI. Monitor leukocytosis and sepsis status. General Surgery and Urology following for the possible bowel obstruction and also renal failure. Also, Nephrology following. Continue vancomycin and cefepime for possible Gram-positive bacteremia, UTI, and sepsis. Check cultures. Continue vancomycin for Gram-positive coverage and cefepime for Gram-negative coverage. 2. Acute kidney injury and elevated creatinine. Nephrology and Urology following. 3. Strong. 4. Ileus greater than small bowel obstruction. Surgery following. 5. Mild anemia. 6. Acute kidney injury. 7. Hypothyroidism. Continue thyroid supplementation. 8. Hypernatremia. 9. Diabetes. 10. Psych disease. 11. COPD. 12. Blood sugar treatment per primary performance management consultant. 13. Hyperlipidemia. 14. Metabolic encephalopathy. 15. Schizophrenia history. 16. Allergies are negative. 17. Social history is negative. 18. Family history is noncontributory. 19. MAR was noted. 20. Case was discussed with RN. 21. Continue treatment per primary consultants. Annita Proctor M.D. DR: Osei JOB#: [id number] CC: JEEVAN
[2019-04-27] VITALS (7 sets, daily range): BP systolic 125–143; BP diastolic 52–89
--- NOTE | 2019-04-27 | Consultation ---
DATE OF CONSULTATION: 04/26/2019 CARDIOLOGY CONSULTATION CONSULTING PHYSICIAN: Bob Ahumada M.D. REFERRING PHYSICIAN: Jorje Acosta M.D. REASON FOR CONSULTATION: Lower extremity edema, rule out congestive heart failure. HISTORY OF PRESENT ILLNESS: The patient is a 68-year-old gentleman with history of hypertension, who is a custodial resident, was brought into the emergency room for nausea and vomiting over the last 3 days. The patient was not able to keep down any food. The patient denied syncope, presyncope, or chest pain. The patient was admitted and a Cardiology consultation was obtained for further evaluation. REVIEW OF SYSTEMS: Review of systems was negative other than what is mentioned in the history of present illness. PAST MEDICAL HISTORY: 1. Diabetes. 2. Chronic obstructive pulmonary disease. 3. Psychiatric history. 4. Hyperlipidemia. FAMILY HISTORY: Noncontributory. SOCIAL HISTORY: He lives in custodial. He does not smoke or drink alcohol. PHYSICAL EXAMINATION: VITAL SIGNS: Show blood pressure of 125/62, pulse 79, respirations 18, and temperature 97.7. HEAD AND NECK: Shows no JVD. LUNGS: Clear. CARDIOVASCULAR: Regular S1 and S2 with no gallop or murmur. ABDOMEN: Soft. EXTREMITIES: A 1+ pitting edema. LABORATORY DATA: Labs show white count of 21,000 that went down to 12.2, hemoglobin of 14, hematocrit of 40, and platelet count is 207,000. Sodium is 135, potassium 3.3, BUN of 115, creatinine of 4.9, and glucose of 107. His BNP is 702. CK 375. ASSESSMENT/PLAN: 1. Lower extremity edema with elevated BNP of 702. His echocardiogram showed ejection fraction of 60%. This is likely due to the patient's renal failure. The patient is currently under management of Dr. Broussard for renal failure. 2. Sepsis with white count of 21,000. On IV vancomycin and cefepime. 3. Hypothyroidism. On Synthroid. 4. History of psychosis. 5. Recurrent nausea and vomiting for 3 days. The patient is incarcerated for ventral hernia. The patient is being followed up by his surgery. 6. Elevated LFTs. Thank you very much Dr. Acosta for allowing me to participate in the care of this patient. Please do not hesitate to contact me for any questions regarding my evaluation. Bob Ahumada M.D. DR: AIDEE JOB#: [id number] CC:
--- NOTE | 2019-04-27 00:11 | General Progress Note ---
Assessment/Plan Problem List: (1) Bowel obstruction ICD Codes: K56.609 - Unspecified intestinal obstruction, unspecified as to partial versus complete obstruction SNOMED: 08568199 Qualifiers: Qualified Codes: K56.609 - Unspecified intestinal obstruction, unspecified as to partial versus complete obstruction (2) Leukocytosis ICD Codes: D72.829 - Elevated white blood cell count, unspecified SNOMED: 384032182, 540343927 Qualifiers: Qualified Codes: D72.829 - Elevated white blood cell count, unspecified (3) Renal failure ICD Codes: N19 - Unspecified kidney failure SNOMED: 39734897 Qualifiers: Qualified Codes: N17.9 - Acute kidney failure, unspecified (4) LFT elevation ICD Codes: R94.5 - Abnormal results of liver function studies SNOMED: 950667489, 617907119 (5) Incarcerated ventral hernia ICD Codes: K43.6 - Other and unspecified ventral hernia with obstruction, without gangrene SNOMED: 390572775 (6) Nausea & vomiting ICD Codes: R11.2 - Nausea with vomiting, unspecified SNOMED: 32587601 (7) Renal failure (ARF), acute on chronic ICD Codes: N17.9 - Acute kidney failure, unspecified; N18.9 - Chronic kidney disease, unspecified SNOMED: 955261471 (8) Hyponatremia ICD Codes: E87.1 - Hypo-osmolality and hyponatremia SNOMED: 25544832 (9) Hypothyroidism ICD Codes: E03.9 - Hypothyroidism, unspecified SNOMED: 40795795 (10) Hypotension ICD Codes: I95.9 - Hypotension, unspecified SNOMED: 51768987 (11) Psychosis ICD Codes: F29 - Unspecified psychosis not due to a substance or known physiological condition SNOMED: 59878377 Status: stable Assessment/Plan: He will be hydrated, nephrology consult will be obtained. He will be empirically treated with Rocephin and his psych meds will be continued. Most likely his nausea/vomiting is due to nephrotic syndrome. Will follow his labs. Subjective Date patient seen: Apr 26, 2019 Time patient seen: 23:56 ROS Limited/Unobtainable: No Constitutional: Reports: no symptoms HEENT: Reports: no symptoms Cardiovascular: Reports: no symptoms Respiratory: Reports: no symptoms Gastrointestinal/Abdominal: Reports: no symptoms Genitourinary: Reports: no symptoms Neurologic/Psychiatric: Reports: no symptoms Endocrine: Reports: no symptoms Allergies: Coded Allergies: No Known Allergies (Unverified , 04/24/19) Objective Last 24 Hour Vital Signs Date Time Temp Pulse Resp B/P (MAP) Pulse Ox O2 Delivery O2 Flow Rate FiO2 04/26/19 21:00 Room Air 04/26/19 20:00 98.2 80 24 129/56 (80) 04/26/19 17:56 Room Air 04/26/19 16:00 97.7 79 18 125/62 (83) 96 04/26/19 12:00 97.5 85 20 118/57 (77) 95 04/26/19 11:30 84 04/26/19 08:18 Room Air 04/26/19 08:00 97.8 90 18 114/63 (80) 95 04/26/19 07:28 81 04/26/19 04:00 81 04/26/19 04:00 98.2 81 18 125/67 (86) 94 Intake and Output 04/26/19 04/27/19 18:59 06:59 Intake Total 910 ml Output Total 1400 ml Balance -490 ml Intake Oral 760 ml IV Total 150 ml Output Urine Total 1400 ml # Bowel Movements 1 Laboratory Tests 04/26/19 04:00: Urine Eosinophils None seen 04/26/19 06:10: Sodium Level 135L, Potassium Level 3.3L, Chloride Level 98, Carbon Dioxide Level 25, Anion Gap 12, Blood Urea Nitrogen 115H, Creatinine 4.0H, Estimat Glomerular Filtration Rate 15.1, Glucose Level 107H, Uric Acid 12.5H, Calcium Level 6.5L, Phosphorus Level 5.0H, Magnesium Level 2.0, Total Bilirubin 0.4, Aspartate Amino Transf (AST/SGOT) 14L, Alanine Aminotransferase (ALT/SGPT) 14, Alkaline Phosphatase 59, Total Creatine Kinase 260, Total Protein 5.2L, Albumin 3.0L, Globulin 2.2, Albumin/Globulin Ratio 1.4, Cortisol AM Sample [Pending] Height (Feet): 5 Height (Inches): 8.00 Weight (Pounds): 260 General Appearance: WD/WN, no apparent distress, alert EENT: PERRL/EOMI Neck: non-tender Cardiovascular: normal peripheral pulses Respiratory/Chest: chest wall non-tender, lungs clear Abdomen: normal bowel sounds Pelvis: no masses Genitourinary/Rectal: normal genital exam Extremities: normal range of motion Edema: trace edema Neurologic: treasury consultant II-XII grossly normal, no motor/sensory deficits Skin: warm/dry Jorje Acosta MD Apr 27, 2019 00:11
--- NOTE | 2019-04-27 06:49 | NUR ---
HAND-OFF: Report given to Sabi TOURE.
[2019-04-27 07:24] LABS: BASOPHILS % (AUTO) 0.5 % (0.0-2.0); EOSINOPHILS % (AUTO) 2.3 % (0.0-3.0); HEMATOCRIT 39.9 % (42.0-52.0); HEMOGLOBIN 13.9 G/DL (14.2-18.0); LYMPHOCYTES % (AUTO) 17.4 % (20.0-45.0); MEAN CORPUSCULAR VOLUME 89 FL (80-99); MONOCYTES % (AUTO) 7.3 % (1.0-10.0); NEUTROPHILS % (AUTO) 72.5 % (45.0-75.0); PLATELET COUNT 209 K/UL (150-450); RED CELL DISTRIBUTION WIDTH 10.9 % (11.6-14.8); WHITE BLOOD COUNT 9.4 K/UL (4.8-10.8)
--- NOTE | 2019-04-27 07:25 | NUR ---
NURSE NOTES: RN received pt in stable condition, awake in bed. No s/s of acute distress or SOB. Bed in low, locked position, call light within reach. Will continue to monitor.
[2019-04-27 07:48] LABS: ANION GAP 13 mmol/L (5-15); BLOOD UREA NITROGEN 81 mg/dL (7-18); CALCIUM 7.4 MG/DL (8.5-10.1); CARBON DIOXIDE 24 MMOL/L (21-32); CHLORIDE 103 MMOL/L (98-107); CREATININE 2.6 MG/DL (0.55-1.30); POTASSIUM 3.6 MMOL/L (3.5-5.1); SODIUM 140 MMOL/L (136-145)
[2019-04-27 07:55] LABS: ALANINE AMINOTRANSFERASE 9 U/L (12-78); ALBUMIN 2.5 G/DL (3.4-5.0); ALBUMIN/GLOBULIN RATIO 0.8 (1.0-2.7); ALKALINE PHOSPHATASE 64 U/L (46-116); ANION GAP 10 mmol/L (5-15); ASPARTATE AMINO TRANSFERASE 13 U/L (15-37); BILIRUBIN,TOTAL 0.5 MG/DL (0.2-1.0); BLOOD UREA NITROGEN 80 mg/dL (7-18); CALCIUM 7.4 MG/DL (8.5-10.1); CARBON DIOXIDE 25 MMOL/L (21-32); CHLORIDE 103 MMOL/L (98-107); CREATININE 2.6 MG/DL (0.55-1.30); PHOSPHORUS 3.1 MG/DL (2.5-4.9); POTASSIUM 3.4 MMOL/L (3.5-5.1); SODIUM 138 MMOL/L (136-145)
[2019-04-27] MEDS: Heparin 5000 units/ml inj SUBQ SCH ×2 (08:22→20:21)
[2019-04-27] MEDS: Docusate 100mg cap ORAL SCH ×3 (08:23→18:16)
[2019-04-27] MEDS: Lactulose 20gm/30ml UDC ORAL SCH ×3 (08:23→18:16)
--- NOTE | 2019-04-27 08:37 | Urology Progress Note ---
Assessment/Plan Status: stable Assessment/Plan: 1. Renal insufficiency, which appears to be acute on chronic, improving. 2. BPH. 3. Lower urinary tract symptoms by history. 4. Possible neurogenic bladder. 5. Adrenal adenoma. 6. Hypospadias. 7. Urethral meatal stricture. maintain singh, placed 04/24, do not remove hand irrigate PRN monitor renal fxn, improving abx as ordered flomax f/u on blood cx cysto later Subjective Allergies: Coded Allergies: No Known Allergies (Unverified , 04/24/19) Subjective all noted, feels fair Objective Last 24 Hour Vital Signs Date Time Temp Pulse Resp B/P (MAP) Pulse Ox O2 Delivery O2 Flow Rate FiO2 04/27/19 04:00 97.9 78 24 135/54 (81) 04/27/19 01:17 98.1 78 24 125/57 (79) 04/27/19 00:00 98.1 78 18 125/57 (79) 04/26/19 21:00 Room Air 04/26/19 20:00 98.2 80 24 129/56 (80) 04/26/19 17:56 Room Air 04/26/19 16:00 97.7 79 18 125/62 (83) 96 04/26/19 12:00 97.5 85 20 118/57 (77) 95 04/26/19 11:30 84 Intake and Output 04/26/19 04/27/19 19:00 07:00 Intake Total 760 ml Output Total 1400 ml Balance -640 ml Intake Oral 760 ml Output Urine Total 1400 ml # Bowel Movements 1 Microbiology Date/Time Source Procedure Growth Status 04/24/19 12:15 Blood Blood Culture - Preliminary Staphylococcus Sp Coag Neg Resulted 04/25/19 06:20 Urine,Clean Catch Urine Culture - Final Klebsiella Pneumoniae Complete Current Medications Medications (Trade) Dose Ordered Sig/Gt Route PRN Reason Start Time Stop Time Status Last Admin Dose Admin Acetaminophen (Tylenol) 650 mg Q4H PRN ORAL Mild Pain/Temp > 100.5 04/26/19 17:37 05/26/19 17:36 Acetaminophen/ Codeine Phosphate (Tylenol #3) 1 tab Q6H PRN ORAL Pain Scale (6-10) 04/26/19 17:36 05/03/19 17:35 Allopurinol (Allopurinol) 300 mg DAILY ORAL 04/27/19 09:00 05/26/19 11:44 04/27/19 08:23 Calcium Carbonate (Os-Dami) 1,250 mg THREE TIMES A DAY ORAL 04/26/19 18:00 05/26/19 12:59 04/27/19 08:21 Cefepime HCl 1 gm/ Dextrose 50 ml @ 100 mls/hr Q24HRS IVPB 04/26/19 18:00 05/03/19 17:59 Docusate Sodium (Colace) 100 mg THREE TIMES A DAY ORAL 04/26/19 18:00 05/25/19 08:59 04/27/19 08:23 Ergocalciferol (Drisdol) 50,000 intlu QWEEK ORAL 05/03/19 17:00 05/26/19 16:59 Heparin Sodium (Porcine) (Heparin 5000 units/ml) 5,000 units EVERY 12 HOURS SUBQ 04/26/19 21:00 05/24/19 20:59 04/27/19 08:22 Lactulose (Cephulac) 20 gm THREE TIMES A DAY ORAL 04/27/19 09:00 04/28/19 08:59 04/27/19 08:23 Levothyroxine Sodium (Synthroid) 50 mcg DAILY@0630 ORAL 04/27/19 06:30 05/27/19 06:29 04/27/19 06:10 Pantoprazole (Protonix) 40 mg EVERY 12 HOURS ORAL 04/26/19 21:00 05/24/19 20:59 04/27/19 08:21 Sevelamer Carbonate (Renvela) 800 mg THREE TIMES A DAY ORAL 04/26/19 18:00 05/25/19 08:59 04/27/19 08:22 Sodium Chloride 1,000 ml @ 150 mls/hr Q6H40M IV 04/26/19 17:35 05/26/19 17:34 04/27/19 06:15 Tamsulosin HCl (Flomax) 0.4 mg BEDTIME ORAL 04/26/19 21:00 05/24/19 20:59 04/26/19 20:45 Vancomycin HCl (Vanco rx to dose) 1 ea DAILY PRN MISC Per rx protocol 04/27/19 09:00 05/26/19 15:59 Vancomycin HCl/ Dextrose 275 ml @ 137.5 mls/ hr ONCE ONCE IVPB 04/27/19 10:00 04/27/19 11:59 Laboratory Tests 04/27/19 05:50: Urine Eosinophils [Pending] 04/27/19 06:38: White Blood Count 9.4, Red Blood Count 4.50L, Hemoglobin 13.9L, Hematocrit 39.9L , Mean Corpuscular Volume 89, Mean Corpuscular Hemoglobin 30.9, Mean Corpuscular Hemoglobin Concent 34.9, Red Cell Distribution Width 10.9L, Platelet Count 209, Mean Platelet Volume 8.5, Neutrophils (%) (Auto) 72.5, Lymphocytes (%) (Auto) 17.4L, Monocytes (%) (Auto) 7.3, Eosinophils (%) (Auto) 2.3, Basophils (%) (Auto) 0.5, Sodium Level 140, Potassium Level 3.6, Chloride Level 103, Carbon Dioxide Level 24, Anion Gap 13, Blood Urea Nitrogen 81H, Creatinine 2.6H, Estimat Glomerular Filtration Rate 24.7, Glucose Level 102, Uric Acid 10.0H, Calcium Level 7.4L, Phosphorus Level 3.1, Magnesium Level 1.7L , Total Bilirubin 0.5, Aspartate Amino Transf (AST/SGOT) 13L, Alanine Aminotransferase (ALT/SGPT) 9L, Alkaline Phosphatase 64, C-Reactive Protein, Quantitative 8.3H, Pro-B-Type Natriuretic Peptide 6028H, Total Protein 5.7L, Albumin 2.5L, Globulin 3.2, Albumin/Globulin Ratio 0.8L, Random Vancomycin Level 12.4 Height (Feet): 5 Height (Inches): 8.00 Weight (Pounds): 260 Objective exam stable, singh indwelling minimal bleeding at site urine Gerber Almaraz MD Apr 27, 2019 08:37
[2019-04-27] MEDS ORDERED: Vancomycin 1.5gm Premix IVPB ONE (10:00)
--- NOTE | 2019-04-27 12:46 | Cardiac Electrophysiology PN ---
Assessment/Plan Assessment/Plan 1. Lower extremity edema with elevated BNP of 702. His echocardiogram showed ejection fraction of 60%. This is likely due to the patient's renal failure. The patient is currently under management of Dr. Broussard for renal failure. 2. Sepsis with white count of 21,000. On IV Abx 3. Hypothyroidism. On Synthroid. 4. History of psychosis. 5. Recurrent nausea and vomiting for 3 days. The patient is incarcerated for ventral hernia. The patient is being followed up by surgery. 6. Elevated LFTs. 7. Aute renal failure. Cr improved to 2.6 DW RN Subjective Subjective More alert. Feeling betetr. No CP or SOB Objective Last 24 Hour Vital Signs Date Time Temp Pulse Resp B/P (MAP) Pulse Ox O2 Delivery O2 Flow Rate FiO2 04/27/19 09:00 Room Air 04/27/19 08:00 99.3 82 20 127/52 (77) 95 04/27/19 04:00 97.9 78 24 135/54 (81) 04/27/19 01:17 98.1 78 24 125/57 (79) 04/27/19 00:00 98.1 78 18 125/57 (79) 04/26/19 21:00 Room Air 04/26/19 20:00 98.2 80 24 129/56 (80) 04/26/19 17:56 Room Air 04/26/19 16:00 97.7 79 18 125/62 (83) 96 Intake and Output 04/26/19 04/27/19 19:00 07:00 Intake Total 760 ml Output Total 1400 ml Balance -640 ml Intake Oral 760 ml Output Urine Total 1400 ml # Bowel Movements 1 Laboratory Tests Test 04/27/19 05:50 04/27/19 06:38 Urine Eosinophils None seen (NONE SEEN) White Blood Count 9.4 K/UL (4.8-10.8) Red Blood Count 4.50 M/UL (4.70-6.10) L Hemoglobin 13.9 G/DL (14.2-18.0) L Hematocrit 39.9 % (42.0-52.0) L Mean Corpuscular Volume 89 FL (80-99) Mean Corpuscular Hemoglobin 30.9 PG (27.0-31.0) Mean Corpuscular Hemoglobin Concent 34.9 G/DL (32.0-36.0) Red Cell Distribution Width 10.9 % (11.6-14.8) L Platelet Count 209 K/UL (150-450) Mean Platelet Volume 8.5 FL (6.5-10.1) Neutrophils (%) (Auto) 72.5 % (45.0-75.0) Lymphocytes (%) (Auto) 17.4 % (20.0-45.0) L Monocytes (%) (Auto) 7.3 % (1.0-10.0) Eosinophils (%) (Auto) 2.3 % (0.0-3.0) Basophils (%) (Auto) 0.5 % (0.0-2.0) Sodium Level 140 MMOL/L (136-145) Potassium Level 3.6 MMOL/L (3.5-5.1) Chloride Level 103 MMOL/L (98-107) Carbon Dioxide Level 24 MMOL/L (21-32) Anion Gap 13 mmol/L (5-15) Blood Urea Nitrogen 81 mg/dL (7-18) H Creatinine 2.6 MG/DL (0.55-1.30) H Estimat Glomerular Filtration Rate 24.7 mL/min (>60) Glucose Level 102 MG/DL (74-106) Uric Acid 10.0 MG/DL (2.6-7.2) H Calcium Level 7.4 MG/DL (8.5-10.1) L Phosphorus Level 3.1 MG/DL (2.5-4.9) Magnesium Level 1.7 MG/DL (1.8-2.4) L Total Bilirubin 0.5 MG/DL (0.2-1.0) Aspartate Amino Transf (AST/SGOT) 13 U/L (15-37) L Alanine Aminotransferase (ALT/SGPT) 9 U/L (12-78) L Alkaline Phosphatase 64 U/L (46-116) C-Reactive Protein, Quantitative 8.3 mg/dL (0.00-0.90) H Pro-B-Type Natriuretic Peptide 6028 pg/mL (0-125) H Total Protein 5.7 G/DL (6.4-8.2) L Albumin 2.5 G/DL (3.4-5.0) L Globulin 3.2 g/dL Albumin/Globulin Ratio 0.8 (1.0-2.7) L Random Vancomycin Level 12.4 ug/mL Microbiology Date/Time Source Procedure Growth Status 04/25/19 06:20 Urine,Clean Catch Urine Culture - Final Klebsiella Pneumoniae Complete Objective HEAD AND NECK: No JVD. LUNGS: Clear. CARDIOVASCULAR: Regular S1 and S2 with no gallop or murmur. ABDOMEN: Soft. EXTREMITIES: A 1+ pitting edema. Bob Ahumada MD Apr 27, 2019 12:46
--- NOTE | 2019-04-27 13:06 | Nephrology Progress Note ---
Assessment/Plan Problem List: (1) Renal failure (ARF), acute on chronic (2) Hyponatremia (3) Hypothyroidism (4) Hypotension Assessment Renal failure Acute vs Chronic Rule out Obstruction GI Sxs likely due to renal failure mild Rhabdo Plan Calcium PO Vit D Now has Strong put in by Uro SUGAR results noted continue Hydrate Monitor renal parameters avoid Nephrotoxics Phos binders Urine studies allopurinol po Med surg Subjective ROS Limited/Unobtainable: No Constitutional: Reports: weakness Objective Objective Last 24 Hour Vital Signs Date Time Temp Pulse Resp B/P (MAP) Pulse Ox O2 Delivery O2 Flow Rate FiO2 04/27/19 12:00 98.4 81 20 140/89 (106) 96 04/27/19 09:00 Room Air 04/27/19 08:00 99.3 82 20 127/52 (77) 95 04/27/19 04:00 97.9 78 24 135/54 (81) 04/27/19 01:17 98.1 78 24 125/57 (79) 04/27/19 00:00 98.1 78 18 125/57 (79) 04/26/19 21:00 Room Air 04/26/19 20:00 98.2 80 24 129/56 (80) 04/26/19 17:56 Room Air 04/26/19 16:00 97.7 79 18 125/62 (83) 96 Intake and Output 04/26/19 04/27/19 19:00 07:00 Intake Total 760 ml Output Total 1400 ml Balance -640 ml Intake Oral 760 ml Output Urine Total 1400 ml # Bowel Movements 1 Laboratory Tests 04/27/19 05:50: Urine Eosinophils None seen 04/27/19 06:38: White Blood Count 9.4, Red Blood Count 4.50L, Hemoglobin 13.9L, Hematocrit 39.9L , Mean Corpuscular Volume 89, Mean Corpuscular Hemoglobin 30.9, Mean Corpuscular Hemoglobin Concent 34.9, Red Cell Distribution Width 10.9L, Platelet Count 209, Mean Platelet Volume 8.5, Neutrophils (%) (Auto) 72.5, Lymphocytes (%) (Auto) 17.4L, Monocytes (%) (Auto) 7.3, Eosinophils (%) (Auto) 2.3, Basophils (%) (Auto) 0.5, Sodium Level 140, Potassium Level 3.6, Chloride Level 103, Carbon Dioxide Level 24, Anion Gap 13, Blood Urea Nitrogen 81H, Creatinine 2.6H, Estimat Glomerular Filtration Rate 24.7, Glucose Level 102, Uric Acid 10.0H, Calcium Level 7.4L, Phosphorus Level 3.1, Magnesium Level 1.7L , Total Bilirubin 0.5, Aspartate Amino Transf (AST/SGOT) 13L, Alanine Aminotransferase (ALT/SGPT) 9L, Alkaline Phosphatase 64, C-Reactive Protein, Quantitative 8.3H, Pro-B-Type Natriuretic Peptide 6028H, Total Protein 5.7L, Albumin 2.5L, Globulin 3.2, Albumin/Globulin Ratio 0.8L, Random Vancomycin Level 12.4 Height (Feet): 5 Height (Inches): 8.00 Weight (Pounds): 260 General Appearance: no apparent distress Cardiovascular: normal rate Respiratory/Chest: lungs clear Abdomen: soft Objective no change Luis Broussard MD Apr 27, 2019 13:06
--- NOTE | 2019-04-27 13:21 | NUR ---
CASE MANAGEMENT: REVIEW 04/27/2019 SI:SEPSIS. ACUTE CHF. T 98.4 HR 81 RR 20 B/P 140/89 SATS 96% ON RA BUN 81 CR 2.6 CA 7.4 URIC ACID 10 CA 7.4 MG 1.7 AST 13 ALP 9 CRP 8.3 BNP 6028 IS: IVF @ 75 mL/HR PROTONIX PO Q12H FLOMAX PO QHS ALLOPURINOL PO QD CEFEPIME IV Q24H LACTULOSE PO TID MED/SURG STATUS
[2019-04-27] MEDS ORDERED: Vitamin D 50,000 units cap ORAL SCH (14:00)
--- NOTE | 2019-04-27 15:58 | Surgery Progress Note ---
Surgery Progress Note Subjective Additional Comments leukocytosis resolved labs improved exam improved no n/v/f/c abd exam benign Objective Last 24 Hour Vital Signs Date Time Temp Pulse Resp B/P (MAP) Pulse Ox O2 Delivery O2 Flow Rate FiO2 04/27/19 12:00 98.4 81 20 140/89 (106) 96 04/27/19 09:00 Room Air 04/27/19 08:00 99.3 82 20 127/52 (77) 95 04/27/19 04:00 97.9 78 24 135/54 (81) 04/27/19 01:17 98.1 78 24 125/57 (79) 04/27/19 00:00 98.1 78 18 125/57 (79) 04/26/19 21:00 Room Air 04/26/19 20:00 98.2 80 24 129/56 (80) 04/26/19 17:56 Room Air 04/26/19 16:00 97.7 79 18 125/62 (83) 96 I&O Intake and Output 04/26/19 04/27/19 19:00 07:00 Intake Total 760 ml Output Total 1400 ml Balance -640 ml Intake Oral 760 ml Output Urine Total 1400 ml # Bowel Movements 1 Cardiovascular: RSR Respiratory: clear Abdomen: soft, non-tender, present bowel sounds, non-distended Extremities: no edema, no tenderness, no cyanosis Laboratory Tests Test 04/27/19 05:50 04/27/19 06:38 Urine Eosinophils None seen (NONE SEEN) White Blood Count 9.4 K/UL (4.8-10.8) Red Blood Count 4.50 M/UL (4.70-6.10) L Hemoglobin 13.9 G/DL (14.2-18.0) L Hematocrit 39.9 % (42.0-52.0) L Mean Corpuscular Volume 89 FL (80-99) Mean Corpuscular Hemoglobin 30.9 PG (27.0-31.0) Mean Corpuscular Hemoglobin Concent 34.9 G/DL (32.0-36.0) Red Cell Distribution Width 10.9 % (11.6-14.8) L Platelet Count 209 K/UL (150-450) Mean Platelet Volume 8.5 FL (6.5-10.1) Neutrophils (%) (Auto) 72.5 % (45.0-75.0) Lymphocytes (%) (Auto) 17.4 % (20.0-45.0) L Monocytes (%) (Auto) 7.3 % (1.0-10.0) Eosinophils (%) (Auto) 2.3 % (0.0-3.0) Basophils (%) (Auto) 0.5 % (0.0-2.0) Sodium Level 140 MMOL/L (136-145) Potassium Level 3.6 MMOL/L (3.5-5.1) Chloride Level 103 MMOL/L (98-107) Carbon Dioxide Level 24 MMOL/L (21-32) Anion Gap 13 mmol/L (5-15) Blood Urea Nitrogen 81 mg/dL (7-18) H Creatinine 2.6 MG/DL (0.55-1.30) H Estimat Glomerular Filtration Rate 24.7 mL/min (>60) Glucose Level 102 MG/DL (74-106) Uric Acid 10.0 MG/DL (2.6-7.2) H Calcium Level 7.4 MG/DL (8.5-10.1) L Phosphorus Level 3.1 MG/DL (2.5-4.9) Magnesium Level 1.7 MG/DL (1.8-2.4) L Total Bilirubin 0.5 MG/DL (0.2-1.0) Aspartate Amino Transf (AST/SGOT) 13 U/L (15-37) L Alanine Aminotransferase (ALT/SGPT) 9 U/L (12-78) L Alkaline Phosphatase 64 U/L (46-116) C-Reactive Protein, Quantitative 8.3 mg/dL (0.00-0.90) H Pro-B-Type Natriuretic Peptide 6028 pg/mL (0-125) H Total Protein 5.7 G/DL (6.4-8.2) L Albumin 2.5 G/DL (3.4-5.0) L Globulin 3.2 g/dL Albumin/Globulin Ratio 0.8 (1.0-2.7) L Random Vancomycin Level 12.4 ug/mL Plan Problems: (1) Nausea & vomiting Assessment & Plan: Persistent nausea vomiting for 3 days. Renal insufficiency Does not seem to have clinical bowel obstruction. Nausea and emesis potentially related to electrolyte disturbances. We will follow with exams. improving likely ileus resolving diet as tolerated (2) Incarcerated ventral hernia Assessment & Plan: Fat-containing asymptomatic We will monitor while inpatient Can consider outpatient elective repair (3) Bowel obstruction Assessment & Plan: 1. Moderate distention of proximal small bowel loops with luminal air- fluid levels, with maximum diameter 3.8 cm, most prominent in the left upper quadrant. Transition point is not definitively identified, but may be in the central abdomen. This may represent ileus versus partial obstruction. 2. Fat-containing umbilical herniation. Hernia sac measures 4.9 x 4.0 x 2.8 cm with hernia neck diameter of 1.4 cm. Stranding within the herniated fat may suggest fatty torsion and may be a source of pain. 3. Descending and sigmoid colonic diverticulosis without evidence of acute inflammation. 4. 1.7 cm left adrenal nodule, most likely a benign adenoma. Clinically patient does not seem to have a bowel obstruction. Last bowel movement 2 days ago, last flatus this morning, abdomen soft nontender nondistended. CT findings noted and presumably ileus from electrolyte abnormalities. Ventral hernia fat-containing and asymptomatic at this time. Will monitor for now. Okay for renal diet Trend labs We will follow with recommendations Thank you (4) Leukocytosis (5) Renal failure (6) LFT elevation César Basurto Apr 27, 2019 15:58
--- NOTE | 2019-04-27 17:05 | NUR ---
NURSE NOTES: PT IV removed while sleeping. RN unable to reinsert. Charge nurse and tele nurse attempted and were unsuccessful. RN contacted Dr. Go; IV abx d/c'd, Keflix 500 mg PO BID ordered.
--- NOTE | 2019-04-27 18:54 | NUR ---
HAND-OFF: Report given to MESFIN Gonzalez.
--- NOTE | 2019-04-27 19:42 | NUR ---
NURSE NOTES: Received patient in bed, awake, alert, oriented x3/4, room air, no acute distress noted, VSS stable, afebrile. Call light is within reach, bed is in low position, locked and alarm is on, will continue to monitor for safety and comfort.
[2019-04-27] MEDS: Cephalexin 250mg Cap ORAL SCH (20:19)
[2019-04-27] MEDS: Tamsulosin 0.4mg cap ORAL SCH (20:19)
--- NOTE | 2019-04-28 00:12 | General Progress Note ---
Assessment/Plan Problem List: (1) Bowel obstruction ICD Codes: K56.609 - Unspecified intestinal obstruction, unspecified as to partial versus complete obstruction SNOMED: 40543318 Qualifiers: Qualified Codes: K56.609 - Unspecified intestinal obstruction, unspecified as to partial versus complete obstruction (2) Leukocytosis ICD Codes: D72.829 - Elevated white blood cell count, unspecified SNOMED: 951536337, 460820044 Qualifiers: Qualified Codes: D72.829 - Elevated white blood cell count, unspecified (3) Renal failure ICD Codes: N19 - Unspecified kidney failure SNOMED: 30238615 Qualifiers: Qualified Codes: N17.9 - Acute kidney failure, unspecified (4) LFT elevation ICD Codes: R94.5 - Abnormal results of liver function studies SNOMED: 887031318, 791832992 (5) Incarcerated ventral hernia ICD Codes: K43.6 - Other and unspecified ventral hernia with obstruction, without gangrene SNOMED: 905306313 (6) Nausea & vomiting ICD Codes: R11.2 - Nausea with vomiting, unspecified SNOMED: 09489586 (7) Renal failure (ARF), acute on chronic ICD Codes: N17.9 - Acute kidney failure, unspecified; N18.9 - Chronic kidney disease, unspecified SNOMED: 843494988 (8) Hyponatremia ICD Codes: E87.1 - Hypo-osmolality and hyponatremia SNOMED: 55359535 (9) Hypothyroidism ICD Codes: E03.9 - Hypothyroidism, unspecified SNOMED: 10649109 (10) Hypotension ICD Codes: I95.9 - Hypotension, unspecified SNOMED: 69585745 (11) Psychosis ICD Codes: F29 - Unspecified psychosis not due to a substance or known physiological condition SNOMED: 94738058 Status: stable Assessment/Plan: He will be hydrated, nephrology consult will be obtained. He will be empirically treated with Rocephin and his psych meds will be continued. Most likely his nausea/vomiting is due to nephrotic syndrome. Will follow his labs. Subjective Date patient seen: Apr 27, 2019 Time patient seen: 23:56 ROS Limited/Unobtainable: No Constitutional: Reports: no symptoms HEENT: Reports: no symptoms Cardiovascular: Reports: no symptoms Respiratory: Reports: no symptoms Gastrointestinal/Abdominal: Reports: no symptoms Genitourinary: Reports: no symptoms Neurologic/Psychiatric: Reports: no symptoms Endocrine: Reports: no symptoms Hematologic/Lymphatic: Reports: no symptoms Allergies: Coded Allergies: No Known Allergies (Unverified , 04/24/19) Objective Last 24 Hour Vital Signs Date Time Temp Pulse Resp B/P (MAP) Pulse Ox O2 Delivery O2 Flow Rate FiO2 04/27/19 21:00 Room Air 04/27/19 20:00 100.8 85 18 130/60 (83) 04/27/19 16:00 98.6 85 20 143/59 (87) 94 04/27/19 12:00 98.4 81 20 140/89 (106) 96 04/27/19 09:00 Room Air 04/27/19 08:00 99.3 82 20 127/52 (77) 95 04/27/19 04:00 97.9 78 24 135/54 (81) 04/27/19 01:17 98.1 78 24 125/57 (79) Intake and Output 04/27/19 04/28/19 18:59 06:59 Intake Total 720 ml Output Total 1500 ml Balance -780 ml Intake Oral 720 ml Output Urine Total 1500 ml # Bowel Movements 1 1 Laboratory Tests 04/27/19 05:50: Urine Eosinophils None seen 04/27/19 06:38: White Blood Count 9.4, Red Blood Count 4.50L, Hemoglobin 13.9L, Hematocrit 39.9L , Mean Corpuscular Volume 89, Mean Corpuscular Hemoglobin 30.9, Mean Corpuscular Hemoglobin Concent 34.9, Red Cell Distribution Width 10.9L, Platelet Count 209, Mean Platelet Volume 8.5, Neutrophils (%) (Auto) 72.5, Lymphocytes (%) (Auto) 17.4L, Monocytes (%) (Auto) 7.3, Eosinophils (%) (Auto) 2.3, Basophils (%) (Auto) 0.5, Sodium Level 140, Potassium Level 3.6, Chloride Level 103, Carbon Dioxide Level 24, Anion Gap 13, Blood Urea Nitrogen 81H, Creatinine 2.6H, Estimat Glomerular Filtration Rate 24.7, Glucose Level 102, Uric Acid 10.0H, Calcium Level 7.4L, Phosphorus Level 3.1, Magnesium Level 1.7L , Total Bilirubin 0.5, Aspartate Amino Transf (AST/SGOT) 13L, Alanine Aminotransferase (ALT/SGPT) 9L, Alkaline Phosphatase 64, C-Reactive Protein, Quantitative 8.3H, Pro-B-Type Natriuretic Peptide 6028H, Total Protein 5.7L, Albumin 2.5L, Globulin 3.2, Albumin/Globulin Ratio 0.8L, Random Vancomycin Level 12.4 Height (Feet): 5 Height (Inches): 8.00 Weight (Pounds): 260 General Appearance: WD/WN EENT: PERRL/EOMI Neck: non-tender Cardiovascular: normal peripheral pulses Respiratory/Chest: chest wall non-tender Abdomen: normal bowel sounds Pelvis: normal external exam Genitourinary/Rectal: normal genital exam Extremities: normal range of motion Edema: no edema noted Arm (L), no edema noted Arm (R), no edema noted Leg (L), no edema noted Leg (R), no edema noted Pedal (L), no edema noted Pedal (R), no edema noted 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
[2019-04-28 00:26] VITALS: BP 135/69
[2019-04-28 04:00] VITALS: BP 143/68
[2019-04-28 06:20] LABS: BASOPHILS % (AUTO) 0.6 % (0.0-2.0); EOSINOPHILS % (AUTO) 1.4 % (0.0-3.0); HEMATOCRIT 36.9 % (42.0-52.0); HEMOGLOBIN 13.1 G/DL (14.2-18.0); MEAN CORPUSCULAR VOLUME 89 FL (80-99); MONOCYTES % (AUTO) 7.2 % (1.0-10.0); NEUTROPHILS % (AUTO) 76.8 % (45.0-75.0); PLATELET COUNT 217 K/UL (150-450); RED BLOOD COUNT 4.16 M/UL (4.70-6.10); RED CELL DISTRIBUTION WIDTH 10.8 % (11.6-14.8); WHITE BLOOD COUNT 10.8 K/UL (4.8-10.8)
[2019-04-28 06:44] LABS: ALANINE AMINOTRANSFERASE 11 U/L (12-78); ALBUMIN 2.7 G/DL (3.4-5.0); ALBUMIN/GLOBULIN RATIO 0.9 (1.0-2.7); ALKALINE PHOSPHATASE 66 U/L (46-116); ANION GAP 10 mmol/L (5-15); ASPARTATE AMINO TRANSFERASE 14 U/L (15-37); BILIRUBIN,TOTAL 0.5 MG/DL (0.2-1.0); BLOOD UREA NITROGEN 57 mg/dL (7-18); CALCIUM 7.9 MG/DL (8.5-10.1); CARBON DIOXIDE 24 MMOL/L (21-32); CHLORIDE 101 MMOL/L (98-107); CREATININE 1.7 MG/DL (0.55-1.30); PHOSPHORUS 2.1 MG/DL (2.5-4.9); POTASSIUM 3.2 MMOL/L (3.5-5.1); SODIUM 135 MMOL/L (136-145)
--- NOTE | 2019-04-28 07:19 | NUR ---
HAND-OFF: Report given to Rachel TOURE.
[2019-04-28 08:00] VITALS: BP 125/68
[2019-04-28] MEDS: Docusate 100mg cap ORAL SCH ×3 (08:15→17:19)
[2019-04-28] MEDS: Cephalexin 250mg Cap ORAL SCH (08:15)
[2019-04-28] MEDS: Heparin 5000 units/ml inj SUBQ SCH ×2 (08:21→22:50)
--- NOTE | 2019-04-28 08:32 | Urology Progress Note ---
Assessment/Plan Status: stable Assessment/Plan: 1. Renal insufficiency, which appears to be acute on chronic, improving. 2. BPH. 3. Lower urinary tract symptoms by history. 4. Possible neurogenic bladder. 5. Adrenal adenoma. 6. Hypospadias. 7. Urethral meatal stricture. maintain singh, placed 04/24, do not remove hand irrigate PRN monitor renal fxn, improving abx as ordered, per ID flomax f/u on blood cx cysto later Subjective Allergies: Coded Allergies: No Known Allergies (Unverified , 04/24/19) Subjective all noted, feels fair Objective Last 24 Hour Vital Signs Date Time Temp Pulse Resp B/P (MAP) Pulse Ox O2 Delivery O2 Flow Rate FiO2 04/28/19 04:00 99.8 87 18 143/68 (93) 04/28/19 00:26 100.8 87 18 135/69 (91) 04/27/19 21:00 Room Air 04/27/19 20:00 100.8 85 18 130/60 (83) 04/27/19 16:00 98.6 85 20 143/59 (87) 94 04/27/19 12:00 98.4 81 20 140/89 (106) 96 04/27/19 09:00 Room Air Intake and Output 04/27/19 04/28/19 19:00 07:00 Intake Total 720 ml Output Total 1500 ml Balance -780 ml Intake Oral 720 ml Output Urine Total 1500 ml # Bowel Movements 1 1 Microbiology Date/Time Source Procedure Growth Status 04/26/19 18:05 Blood Blood Culture - Preliminary NO GROWTH AFTER 24 HOURS Resulted 04/25/19 06:20 Urine,Clean Catch Urine Culture - Final Klebsiella Pneumoniae Complete Current Medications Medications (Trade) Dose Ordered Sig/Gt Route PRN Reason Start Time Stop Time Status Last Admin Dose Admin Acetaminophen (Tylenol) 650 mg Q4H PRN ORAL Mild Pain/Temp > 100.5 04/26/19 17:37 05/26/19 17:36 Acetaminophen/ Codeine Phosphate (Tylenol #3) 1 tab Q6H PRN ORAL Pain Scale (6-10) 04/26/19 17:36 05/03/19 17:35 Allopurinol (Allopurinol) 300 mg DAILY ORAL 04/27/19 09:00 05/26/19 11:44 04/28/19 08:15 Calcium Carbonate (Os-Dami) 1,250 mg THREE TIMES A DAY ORAL 04/26/19 18:00 05/26/19 12:59 04/28/19 08:15 Cephalexin (Keflex) 250 mg Q12HR ORAL 04/27/19 21:00 05/04/19 20:59 04/28/19 08:15 Docusate Sodium (Colace) 100 mg THREE TIMES A DAY ORAL 04/26/19 18:00 05/25/19 08:59 04/28/19 08:15 Ergocalciferol (Drisdol) 50,000 intlu QWEEK ORAL 04/27/19 14:00 05/26/19 13:59 04/27/19 14:39 Heparin Sodium (Porcine) (Heparin 5000 units/ml) 5,000 units EVERY 12 HOURS SUBQ 04/26/19 21:00 05/24/19 20:59 04/28/19 08:21 Lactulose (Cephulac) 20 gm THREE TIMES A DAY ORAL 04/27/19 09:00 04/28/19 08:59 04/27/19 18:16 Levothyroxine Sodium (Synthroid) 50 mcg DAILY@0630 ORAL 04/27/19 06:30 05/27/19 06:29 04/28/19 06:24 Pantoprazole (Protonix) 40 mg EVERY 12 HOURS ORAL 04/26/19 21:00 05/24/19 20:59 04/28/19 08:15 Sodium Chloride 1,000 ml @ 75 mls/hr [id number] IV 04/27/19 09:00 05/26/19 08:59 04/27/19 09:00 Tamsulosin HCl (Flomax) 0.4 mg BEDTIME ORAL 04/26/19 21:00 05/24/19 20:59 04/27/19 20:19 Laboratory Tests 04/28/19 04:45: White Blood Count 10.8, Red Blood Count 4.16L, Hemoglobin 13.1L, Hematocrit 36.9L, Mean Corpuscular Volume 89, Mean Corpuscular Hemoglobin 31.6H, Mean Corpuscular Hemoglobin Concent 35.5, Red Cell Distribution Width 10.8L, Platelet Count 217, Mean Platelet Volume 7.8, Neutrophils (%) (Auto) 76.8H, Lymphocytes (%) (Auto) 14.0L, Monocytes (%) (Auto) 7.2, Eosinophils (%) (Auto) 1.4, Basophils (%) (Auto) 0.6, Sodium Level 135L, Potassium Level 3.2L, Chloride Level 101, Carbon Dioxide Level 24, Anion Gap 10, Blood Urea Nitrogen 57H, Creatinine 1.7H, Estimat Glomerular Filtration Rate 40.4, Glucose Level 121H, Uric Acid 8.4H, Calcium Level 7.9L, Phosphorus Level 2.1L, Magnesium Level 1.7L, Total Bilirubin 0.5, Aspartate Amino Transf (AST/SGOT) 14L, Alanine Aminotransferase (ALT/SGPT) 11L, Alkaline Phosphatase 66, C-Reactive Protein, Quantitative 5.4H, Total Protein 5.7L, Albumin 2.7L, Globulin 3.0, Albumin/ Globulin Ratio 0.9L Height (Feet): 5 Height (Inches): 8.00 Weight (Pounds): 260 Objective exam stable, singh indwelling minimal bleeding at site urine Gerber Almaraz MD Apr 28, 2019 08:32
--- NOTE | 2019-04-28 09:04 | NUR ---
NURSE NOTES: pt in bed with no sob nor in any form of distress noted. singh draining well with no obstruction. denies any pain at this time. breathing regular and unlabored. will continue to monitor
[2019-04-28] MEDS ORDERED: Potassium Phosphate 30 MM in NS 275 ML IV ONE (11:00)
--- NOTE | 2019-04-28 11:11 | Nephrology Progress Note ---
Assessment/Plan Problem List: (1) Renal failure (ARF), acute on chronic Assessment: resolved (2) Hyponatremia (3) Hypothyroidism (4) Hypotension Assessment Renal failure Acute vs Chronic Rule out Obstruction GI Sxs likely due to renal failure mild Rhabdo Plan Calcium PO Vit D Now has Strong put in by Uro SUGAR results noted continue Hydrate Monitor renal parameters avoid Nephrotoxics Phos binders Urine studies allopurinol po Med surg ? DC Subjective ROS Limited/Unobtainable: No Constitutional: Reports: malaise Objective Objective Last 24 Hour Vital Signs Date Time Temp Pulse Resp B/P (MAP) Pulse Ox O2 Delivery O2 Flow Rate FiO2 04/28/19 09:00 Room Air 04/28/19 08:00 98.9 82 19 125/68 (87) 95 04/28/19 04:00 99.8 87 18 143/68 (93) 04/28/19 00:26 100.8 87 18 135/69 (91) 04/27/19 21:00 Room Air 04/27/19 20:00 100.8 85 18 130/60 (83) 04/27/19 16:00 98.6 85 20 143/59 (87) 94 04/27/19 12:00 98.4 81 20 140/89 (106) 96 Intake and Output 04/27/19 04/28/19 19:00 07:00 Intake Total 720 ml Output Total 1500 ml Balance -780 ml Intake Oral 720 ml Output Urine Total 1500 ml # Bowel Movements 1 1 Laboratory Tests 04/28/19 04:45: White Blood Count 10.8, Red Blood Count 4.16L, Hemoglobin 13.1L, Hematocrit 36.9L, Mean Corpuscular Volume 89, Mean Corpuscular Hemoglobin 31.6H, Mean Corpuscular Hemoglobin Concent 35.5, Red Cell Distribution Width 10.8L, Platelet Count 217, Mean Platelet Volume 7.8, Neutrophils (%) (Auto) 76.8H, Lymphocytes (%) (Auto) 14.0L, Monocytes (%) (Auto) 7.2, Eosinophils (%) (Auto) 1.4, Basophils (%) (Auto) 0.6, Sodium Level 135L, Potassium Level 3.2L, Chloride Level 101, Carbon Dioxide Level 24, Anion Gap 10, Blood Urea Nitrogen 57H, Creatinine 1.7H, Estimat Glomerular Filtration Rate 40.4, Glucose Level 121H, Uric Acid 8.4H, Calcium Level 7.9L, Phosphorus Level 2.1L, Magnesium Level 1.7L, Total Bilirubin 0.5, Aspartate Amino Transf (AST/SGOT) 14L, Alanine Aminotransferase (ALT/SGPT) 11L, Alkaline Phosphatase 66, C-Reactive Protein, Quantitative 5.4H, Total Protein 5.7L, Albumin 2.7L, Globulin 3.0, Albumin/ Globulin Ratio 0.9L Height (Feet): 5 Height (Inches): 8.00 Weight (Pounds): 260 General Appearance: no apparent distress Objective no change Luis Broussard MD Apr 28, 2019 11:11
[2019-04-28] MEDS ORDERED: Phospha 250 Neutral tab ORAL SCH (11:15)
[2019-04-28 12:00] VITALS: BP 133/74
[2019-04-28] MEDS: Magnesium Oxide 400mg tab ORAL SCH ×2 (12:16→17:19)
--- NOTE | 2019-04-28 13:32 | Surgery Progress Note ---
Surgery Progress Note Subjective Symptoms: improved, voiding well Additional Comments labs improved exam improved overall improved Objective Last 24 Hour Vital Signs Date Time Temp Pulse Resp B/P (MAP) Pulse Ox O2 Delivery O2 Flow Rate FiO2 04/28/19 12:00 98.5 77 19 133/74 (93) 96 04/28/19 09:00 Room Air 04/28/19 08:00 98.9 82 19 125/68 (87) 95 04/28/19 04:00 99.8 87 18 143/68 (93) 04/28/19 00:26 100.8 87 18 135/69 (91) 04/27/19 21:00 Room Air 04/27/19 20:00 100.8 85 18 130/60 (83) 04/27/19 16:00 98.6 85 20 143/59 (87) 94 I&O Intake and Output 04/27/19 04/28/19 19:00 07:00 Intake Total 720 ml Output Total 1500 ml Balance -780 ml Intake Oral 720 ml Output Urine Total 1500 ml # Bowel Movements 1 1 Cardiovascular: RSR Respiratory: clear Abdomen: soft, flat, non-tender, present bowel sounds, non-distended Extremities: no tenderness, no cyanosis Laboratory Tests Test 04/28/19 04:45 White Blood Count 10.8 K/UL (4.8-10.8) Red Blood Count 4.16 M/UL (4.70-6.10) L Hemoglobin 13.1 G/DL (14.2-18.0) L Hematocrit 36.9 % (42.0-52.0) L Mean Corpuscular Volume 89 FL (80-99) Mean Corpuscular Hemoglobin 31.6 PG (27.0-31.0) H Mean Corpuscular Hemoglobin Concent 35.5 G/DL (32.0-36.0) Red Cell Distribution Width 10.8 % (11.6-14.8) L Platelet Count 217 K/UL (150-450) Mean Platelet Volume 7.8 FL (6.5-10.1) Neutrophils (%) (Auto) 76.8 % (45.0-75.0) H Lymphocytes (%) (Auto) 14.0 % (20.0-45.0) L Monocytes (%) (Auto) 7.2 % (1.0-10.0) Eosinophils (%) (Auto) 1.4 % (0.0-3.0) Basophils (%) (Auto) 0.6 % (0.0-2.0) Sodium Level 135 MMOL/L (136-145) L Potassium Level 3.2 MMOL/L (3.5-5.1) L Chloride Level 101 MMOL/L (98-107) Carbon Dioxide Level 24 MMOL/L (21-32) Anion Gap 10 mmol/L (5-15) Blood Urea Nitrogen 57 mg/dL (7-18) H Creatinine 1.7 MG/DL (0.55-1.30) H Estimat Glomerular Filtration Rate 40.4 mL/min (>60) Glucose Level 121 MG/DL (74-106) H Uric Acid 8.4 MG/DL (2.6-7.2) H Calcium Level 7.9 MG/DL (8.5-10.1) L Phosphorus Level 2.1 MG/DL (2.5-4.9) L Magnesium Level 1.7 MG/DL (1.8-2.4) L Total Bilirubin 0.5 MG/DL (0.2-1.0) Aspartate Amino Transf (AST/SGOT) 14 U/L (15-37) L Alanine Aminotransferase (ALT/SGPT) 11 U/L (12-78) L Alkaline Phosphatase 66 U/L (46-116) C-Reactive Protein, Quantitative 5.4 mg/dL (0.00-0.90) H Total Protein 5.7 G/DL (6.4-8.2) L Albumin 2.7 G/DL (3.4-5.0) L Globulin 3.0 g/dL Albumin/Globulin Ratio 0.9 (1.0-2.7) L Plan Problems: (1) Nausea & vomiting Assessment & Plan: Persistent nausea vomiting for 3 days. Renal insufficiency Does not seem to have clinical bowel obstruction. Nausea and emesis potentially related to electrolyte disturbances. We will follow with exams. improving likely ileus resolving diet as tolerated (2) Incarcerated ventral hernia Assessment & Plan: Fat-containing asymptomatic We will monitor while inpatient Can consider outpatient elective repair (3) Bowel obstruction Assessment & Plan: 1. Moderate distention of proximal small bowel loops with luminal air- fluid levels, with maximum diameter 3.8 cm, most prominent in the left upper quadrant. Transition point is not definitively identified, but may be in the central abdomen. This may represent ileus versus partial obstruction. 2. Fat-containing umbilical herniation. Hernia sac measures 4.9 x 4.0 x 2.8 cm with hernia neck diameter of 1.4 cm. Stranding within the herniated fat may suggest fatty torsion and may be a source of pain. 3. Descending and sigmoid colonic diverticulosis without evidence of acute inflammation. 4. 1.7 cm left adrenal nodule, most likely a benign adenoma. Clinically patient does not seem to have a bowel obstruction. Last bowel movement 2 days ago, last flatus this morning, abdomen soft nontender nondistended. CT findings noted and presumably ileus from electrolyte abnormalities. Ventral hernia fat-containing and asymptomatic at this time. Will monitor for now. Okay for renal diet Trend labs We will follow with recommendations Thank you (4) Leukocytosis (5) Renal failure (6) LFT elevation César Basurto Apr 28, 2019 13:32
--- NOTE | 2019-04-28 14:34 | Cardiac Electrophysiology PN ---
Assessment/Plan Assessment/Plan 1. Lower extremity edema with elevated BNP of 702. His echocardiogram showed ejection fraction of 60%. This is likely due to the patient's renal failure. The patient is currently under management of Dr. Broussard for renal failure. 2. Sepsis with white count of 21,000. On IV Abx 3. Hypothyroidism. On Synthroid. 4. History of psychosis. 5. Recurrent nausea and vomiting for 3 days. The patient is incarcerated for ventral hernia. The patient is being followed up by surgery. 6. Elevated LFTs. 7. Aute renal failure. Cr improved to 2.6 8. Replaced Mag and Phos DW RN Subjective Subjective More alert. Feeling better. Objective Last 24 Hour Vital Signs Date Time Temp Pulse Resp B/P (MAP) Pulse Ox O2 Delivery O2 Flow Rate FiO2 04/28/19 12:00 98.5 77 19 133/74 (93) 96 04/28/19 09:00 Room Air 04/28/19 08:00 98.9 82 19 125/68 (87) 95 04/28/19 04:00 99.8 87 18 143/68 (93) 04/28/19 00:26 100.8 87 18 135/69 (91) 04/27/19 21:00 Room Air 04/27/19 20:00 100.8 85 18 130/60 (83) 04/27/19 16:00 98.6 85 20 143/59 (87) 94 Intake and Output 04/27/19 04/28/19 19:00 07:00 Intake Total 720 ml Output Total 1500 ml Balance -780 ml Intake Oral 720 ml Output Urine Total 1500 ml # Bowel Movements 1 1 Laboratory Tests Test 04/28/19 04:45 White Blood Count 10.8 K/UL (4.8-10.8) Red Blood Count 4.16 M/UL (4.70-6.10) L Hemoglobin 13.1 G/DL (14.2-18.0) L Hematocrit 36.9 % (42.0-52.0) L Mean Corpuscular Volume 89 FL (80-99) Mean Corpuscular Hemoglobin 31.6 PG (27.0-31.0) H Mean Corpuscular Hemoglobin Concent 35.5 G/DL (32.0-36.0) Red Cell Distribution Width 10.8 % (11.6-14.8) L Platelet Count 217 K/UL (150-450) Mean Platelet Volume 7.8 FL (6.5-10.1) Neutrophils (%) (Auto) 76.8 % (45.0-75.0) H Lymphocytes (%) (Auto) 14.0 % (20.0-45.0) L Monocytes (%) (Auto) 7.2 % (1.0-10.0) Eosinophils (%) (Auto) 1.4 % (0.0-3.0) Basophils (%) (Auto) 0.6 % (0.0-2.0) Sodium Level 135 MMOL/L (136-145) L Potassium Level 3.2 MMOL/L (3.5-5.1) L Chloride Level 101 MMOL/L (98-107) Carbon Dioxide Level 24 MMOL/L (21-32) Anion Gap 10 mmol/L (5-15) Blood Urea Nitrogen 57 mg/dL (7-18) H Creatinine 1.7 MG/DL (0.55-1.30) H Estimat Glomerular Filtration Rate 40.4 mL/min (>60) Glucose Level 121 MG/DL (74-106) H Uric Acid 8.4 MG/DL (2.6-7.2) H Calcium Level 7.9 MG/DL (8.5-10.1) L Phosphorus Level 2.1 MG/DL (2.5-4.9) L Magnesium Level 1.7 MG/DL (1.8-2.4) L Total Bilirubin 0.5 MG/DL (0.2-1.0) Aspartate Amino Transf (AST/SGOT) 14 U/L (15-37) L Alanine Aminotransferase (ALT/SGPT) 11 U/L (12-78) L Alkaline Phosphatase 66 U/L (46-116) C-Reactive Protein, Quantitative 5.4 mg/dL (0.00-0.90) H Total Protein 5.7 G/DL (6.4-8.2) L Albumin 2.7 G/DL (3.4-5.0) L Globulin 3.0 g/dL Albumin/Globulin Ratio 0.9 (1.0-2.7) L Microbiology Date/Time Source Procedure Growth Status 04/26/19 18:05 Blood Blood Culture - Preliminary NO GROWTH AFTER 24 HOURS Resulted 04/26/19 17:55 Blood Blood Culture - Preliminary NO GROWTH AFTER 24 HOURS Resulted Objective HEAD AND NECK: No JVD. LUNGS: Clear. CARDIOVASCULAR: Regular S1 and S2 with no gallop or murmur. ABDOMEN: Soft. EXTREMITIES: A 1+ pitting edema. Bob Ahumada MD Apr 28, 2019 14:34
--- NOTE | 2019-04-28 15:12 | Infectious Diseases Prog Note ---
Assessment/Plan Assessment/Plan ASSESSMENT AND PLAN: 1. klebsiella uti, sepsis, leukocytosis, ? sbo, coag neg staph / bc likely contaminant - change abx to rocephin only - day # 3 abx, other abx discontinued - po abx soon (keflex reasonable option) if continues to clinically improve - monitor labs - continue treatment per primary and consultants - per surgery note - no bowel obstruction clinically 2. Acute kidney injury and elevated creatinine. Nephrology and Urology following. 3. Singh. 4. Ileus greater than small bowel obstruction. Surgery following. 5. Mild anemia. 6. Acute kidney injury. 7. Hypothyroidism. Continue thyroid supplementation. 8. Hypernatremia. 9. Diabetes. 10. Psych disease. 11. COPD. 12. Blood sugar treatment per primary technical solutions consultant. 13. Hyperlipidemia. 14. Metabolic encephalopathy. 15. Schizophrenia history. 16. Allergies are negative. 17. Social history is negative. 18. Family history is noncontributory. 19. MAR was noted. 20. Case was discussed with RN. 21. Continue treatment per primary consultants. Subjective Constitutional: Denies: fever HEENT: Denies: congestion Respiratory: Denies: shortness of breath Cardiovascular: Denies: chest pain Gastrointestinal/Abdominal: Denies: nausea, vomiting, diarrhea Genitourinary: Reports: other - no singh ; Denies: dysuria, hematuria, frequency Neurologic: Denies: headache Psychiatric: Denies: depression Skin: Denies: rash Hematologic: Denies: bleeding Musculoskeletal: Denies: pain Allergies: Coded Allergies: No Known Allergies (Unverified , 04/24/19) Objective Vital Signs Last 24 Hour Vital Signs Date Time Temp Pulse Resp B/P (MAP) Pulse Ox O2 Delivery O2 Flow Rate FiO2 04/28/19 12:00 98.5 77 19 133/74 (93) 96 04/28/19 09:00 Room Air 04/28/19 08:00 98.9 82 19 125/68 (87) 95 04/28/19 04:00 99.8 87 18 143/68 (93) 04/28/19 00:26 100.8 87 18 135/69 (91) 04/27/19 21:00 Room Air 04/27/19 20:00 100.8 85 18 130/60 (83) 04/27/19 16:00 98.6 85 20 143/59 (87) 94 Height (Feet): 5 Height (Inches): 8.00 Weight (Pounds): 260 General Appearance: no acute distress HEENT: normocephalic, atraumatic, anicteric, mucous membranes moist Respiratory/Chest: lungs clear, normal breath sounds, no respiratory distress, no accessory muscle use Cardiovascular: normal rate, regular rhythm, no gallop/murmur, no JVD Abdomen: normal bowel sounds, soft, non tender, no organomegaly, non distended Genitourinary: other - no singh Extremities: no cyanosis Skin: no rash 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 Moderate distention of proximal small bowel loops with luminal air- fluid levels, with maximum diameter 3.8 cm, most prominent in the left upper quadrant. Transition point is not definitively identified, but may be in the central abdomen. This may represent ileus versus partial obstruction. 2. Fat-containing umbilical herniation. Hernia sac measures 4.9 x 4.0 x 2.8 cm with hernia neck diameter of 1.4 cm. Stranding within the herniated fat may suggest fatty torsion and may be a source of pain. 3. Descending and sigmoid colonic diverticulosis without evidence of acute inflammation. 4. 1.7 cm left adrenal nodule, most likely a benign adenoma. Chest x-ray - nad, report noted Microbiology Date/Time Source Procedure Growth Status 04/26/19 18:05 Blood Blood Culture - Preliminary NO GROWTH AFTER 24 HOURS Resulted 04/25/19 06:20 Urine,Clean Catch Urine Culture - Final Klebsiella Pneumoniae Complete Microbiology Date/Time Source Procedure Growth Status 04/26/19 18:05 Blood Blood Culture - Preliminary NO GROWTH AFTER 24 HOURS Resulted 04/26/19 17:55 Blood Blood Culture - Preliminary NO GROWTH AFTER 24 HOURS Resulted Laboratory Tests Test 04/28/19 04:45 White Blood Count 10.8 K/UL (4.8-10.8) Red Blood Count 4.16 M/UL (4.70-6.10) L Hemoglobin 13.1 G/DL (14.2-18.0) L Hematocrit 36.9 % (42.0-52.0) L Mean Corpuscular Volume 89 FL (80-99) Mean Corpuscular Hemoglobin 31.6 PG (27.0-31.0) H Mean Corpuscular Hemoglobin Concent 35.5 G/DL (32.0-36.0) Red Cell Distribution Width 10.8 % (11.6-14.8) L Platelet Count 217 K/UL (150-450) Mean Platelet Volume 7.8 FL (6.5-10.1) Neutrophils (%) (Auto) 76.8 % (45.0-75.0) H Lymphocytes (%) (Auto) 14.0 % (20.0-45.0) L Monocytes (%) (Auto) 7.2 % (1.0-10.0) Eosinophils (%) (Auto) 1.4 % (0.0-3.0) Basophils (%) (Auto) 0.6 % (0.0-2.0) Sodium Level 135 MMOL/L (136-145) L Potassium Level 3.2 MMOL/L (3.5-5.1) L Chloride Level 101 MMOL/L (98-107) Carbon Dioxide Level 24 MMOL/L (21-32) Anion Gap 10 mmol/L (5-15) Blood Urea Nitrogen 57 mg/dL (7-18) H Creatinine 1.7 MG/DL (0.55-1.30) H Estimat Glomerular Filtration Rate 40.4 mL/min (>60) Glucose Level 121 MG/DL (74-106) H Uric Acid 8.4 MG/DL (2.6-7.2) H Calcium Level 7.9 MG/DL (8.5-10.1) L Phosphorus Level 2.1 MG/DL (2.5-4.9) L Magnesium Level 1.7 MG/DL (1.8-2.4) L Total Bilirubin 0.5 MG/DL (0.2-1.0) Aspartate Amino Transf (AST/SGOT) 14 U/L (15-37) L Alanine Aminotransferase (ALT/SGPT) 11 U/L (12-78) L Alkaline Phosphatase 66 U/L (46-116) C-Reactive Protein, Quantitative 5.4 mg/dL (0.00-0.90) H Total Protein 5.7 G/DL (6.4-8.2) L Albumin 2.7 G/DL (3.4-5.0) L Globulin 3.0 g/dL Albumin/Globulin Ratio 0.9 (1.0-2.7) L Current Medications Medications (Trade) Dose Ordered Sig/Tg Route PRN Reason Start Time Stop Time Status Last Admin Dose Admin Acetaminophen (Tylenol) 650 mg Q4H PRN ORAL Mild Pain/Temp > 100.5 04/26/19 17:37 05/26/19 17:36 Acetaminophen/ Codeine Phosphate (Tylenol #3) 1 tab Q6H PRN ORAL Pain Scale (6-10) 04/26/19 17:36 05/03/19 17:35 Allopurinol (Allopurinol) 300 mg DAILY ORAL 04/27/19 09:00 05/26/19 11:44 04/28/19 08:15 Calcium Carbonate (Os-Dami) 625 mg THREE TIMES A DAY ORAL 04/28/19 13:00 05/26/19 12:59 04/28/19 12:16 Cephalexin (Keflex) 250 mg Q12HR ORAL 04/27/19 21:00 05/04/19 20:59 04/28/19 08:15 Docusate Sodium (Colace) 100 mg THREE TIMES A DAY ORAL 04/26/19 18:00 05/25/19 08:59 04/28/19 12:16 Ergocalciferol (Drisdol) 50,000 intlu QWEEK ORAL 04/27/19 14:00 05/26/19 13:59 04/27/19 14:39 Heparin Sodium (Porcine) (Heparin 5000 units/ml) 5,000 units EVERY 12 HOURS SUBQ 04/26/19 21:00 05/24/19 20:59 04/28/19 08:21 Levothyroxine Sodium (Synthroid) 50 mcg DAILY@0630 ORAL 04/27/19 06:30 05/27/19 06:29 04/28/19 06:24 Magnesium Oxide (Mag-Ox 400mg) 400 mg THREE TIMES A DAY ORAL 04/28/19 13:00 05/28/19 12:59 04/28/19 12:16 Pantoprazole (Protonix) 40 mg EVERY 12 HOURS ORAL 04/26/19 21:00 05/24/19 20:59 04/28/19 08:15 Potassium Phosphate 30 mm/ Sodium Chloride 285 ml @ 47.5 mls/hr ONCE ONCE IV 04/28/19 11:00 04/28/19 16:59 04/28/19 13:28 Tamsulosin HCl (Flomax) 0.4 mg BEDTIME ORAL 04/26/19 21:00 05/24/19 20:59 04/27/19 20:19 Annita Proctor MD Apr 28, 2019 15:12
[2019-04-28 16:00] VITALS: BP 130/82
[2019-04-28] MEDS: cefTRIAXone 1 GM in D5W 50 ML IVPB SCH (17:19)
--- NOTE | 2019-04-28 19:20 | NUR ---
HAND-OFF: Report given to MESFIN napoles.
[2019-04-28 20:00] VITALS: BP 139/66
--- NOTE | 2019-04-28 20:30 | NUR ---
NURSE NOTES: Pt is in bed, awake and verbal. No acute distress noted. Vitals stable. Room air. Strong is draining yellow urine. Dr. Ford called and ordered not to remove Strong cath. Pt is to be discharged with Strong Cath. Bed locked low in position,side rails up and call light within reach. Fall precaution in place, Bed alarm on. Pt will be monitored. Cesar Galvan RN will be assisting in the patient care.
--- NOTE | 2019-04-28 22:00 | NUR ---
NURSE NOTES: Dr. Ford visited patient and ordered not to remove Strong cath.
[2019-04-28] MEDS: Tamsulosin 0.4mg cap ORAL SCH (22:49)
--- NOTE | 2019-04-28 23:05 | General Progress Note ---
Assessment/Plan Problem List: (1) Bowel obstruction ICD Codes: K56.609 - Unspecified intestinal obstruction, unspecified as to partial versus complete obstruction SNOMED: 61185843 Qualifiers: Qualified Codes: K56.609 - Unspecified intestinal obstruction, unspecified as to partial versus complete obstruction (2) Leukocytosis ICD Codes: D72.829 - Elevated white blood cell count, unspecified SNOMED: 937446191, 535068037 Qualifiers: Qualified Codes: D72.829 - Elevated white blood cell count, unspecified (3) Renal failure ICD Codes: N19 - Unspecified kidney failure SNOMED: 11367036 Qualifiers: Qualified Codes: N17.9 - Acute kidney failure, unspecified (4) LFT elevation ICD Codes: R94.5 - Abnormal results of liver function studies SNOMED: 709788453, 619725875 (5) Incarcerated ventral hernia ICD Codes: K43.6 - Other and unspecified ventral hernia with obstruction, without gangrene SNOMED: 545651472 (6) Nausea & vomiting ICD Codes: R11.2 - Nausea with vomiting, unspecified SNOMED: 50149479 (7) Renal failure (ARF), acute on chronic ICD Codes: N17.9 - Acute kidney failure, unspecified; N18.9 - Chronic kidney disease, unspecified SNOMED: 779023096 Qualifiers: (8) Hyponatremia ICD Codes: E87.1 - Hypo-osmolality and hyponatremia SNOMED: 38229172 (9) Hypothyroidism ICD Codes: E03.9 - Hypothyroidism, unspecified SNOMED: 80881080 (10) Hypotension ICD Codes: I95.9 - Hypotension, unspecified SNOMED: 88688088 (11) Psychosis ICD Codes: F29 - Unspecified psychosis not due to a substance or known physiological condition SNOMED: 67448326 Qualifiers: Status: stable Assessment/Plan: He will be hydrated, nephrology consult will be obtained. He will be empirically treated with Rocephin and his psych meds will be continued. Most likely his nausea/vomiting is due to nephrotic syndrome. Will follow his labs. Subjective Date patient seen: Apr 28, 2019 Time patient seen: 23:01 ROS Limited/Unobtainable: No Constitutional: Reports: no symptoms HEENT: Reports: no symptoms Cardiovascular: Reports: no symptoms Respiratory: Reports: no symptoms Gastrointestinal/Abdominal: Reports: no symptoms Genitourinary: Reports: no symptoms Neurologic/Psychiatric: Reports: no symptoms Endocrine: Reports: no symptoms Hematologic/Lymphatic: Reports: no symptoms Allergies: Coded Allergies: No Known Allergies (Unverified , 04/24/19) Objective Last 24 Hour Vital Signs Date Time Temp Pulse Resp B/P (MAP) Pulse Ox O2 Delivery O2 Flow Rate FiO2 04/28/19 16:00 98.3 80 19 130/82 (98) 97 04/28/19 12:00 98.5 77 19 133/74 (93) 96 04/28/19 09:00 Room Air 04/28/19 08:00 98.9 82 19 125/68 (87) 95 04/28/19 04:00 99.8 87 18 143/68 (93) 04/28/19 00:26 100.8 87 18 135/69 (91) Intake and Output 04/27/19 04/28/19 18:59 06:59 Intake Total 720 ml Output Total 1500 ml Balance -780 ml Intake Oral 720 ml Output Urine Total 1500 ml # Bowel Movements 1 1 Laboratory Tests 04/28/19 04:45: White Blood Count 10.8, Red Blood Count 4.16L, Hemoglobin 13.1L, Hematocrit 36.9L, Mean Corpuscular Volume 89, Mean Corpuscular Hemoglobin 31.6H, Mean Corpuscular Hemoglobin Concent 35.5, Red Cell Distribution Width 10.8L, Platelet Count 217, Mean Platelet Volume 7.8, Neutrophils (%) (Auto) 76.8H, Lymphocytes (%) (Auto) 14.0L, Monocytes (%) (Auto) 7.2, Eosinophils (%) (Auto) 1.4, Basophils (%) (Auto) 0.6, Sodium Level 135L, Potassium Level 3.2L, Chloride Level 101, Carbon Dioxide Level 24, Anion Gap 10, Blood Urea Nitrogen 57H, Creatinine 1.7H, Estimat Glomerular Filtration Rate 40.4, Glucose Level 121H, Uric Acid 8.4H, Calcium Level 7.9L, Phosphorus Level 2.1L, Magnesium Level 1.7L, Total Bilirubin 0.5, Aspartate Amino Transf (AST/SGOT) 14L, Alanine Aminotransferase (ALT/SGPT) 11L, Alkaline Phosphatase 66, C-Reactive Protein, Quantitative 5.4H, Total Protein 5.7L, Albumin 2.7L, Globulin 3.0, Albumin/ Globulin Ratio 0.9L Height (Feet): 5 Height (Inches): 8.00 Weight (Pounds): 260 General Appearance: WD/WN EENT: PERRL/EOMI Neck: non-tender, normal alignment, supple, normal inspection Cardiovascular: normal peripheral pulses, normal rate, regular rhythm, no gallop/murmur, no JVD Respiratory/Chest: chest wall non-tender, lungs clear, normal breath sounds, no respiratory distress, no accessory muscle use Abdomen: normal bowel sounds, non tender, soft Pelvis: normal external exam Genitourinary/Rectal: normal genital exam Extremities: normal range of motion Edema: no edema noted Arm (L), no edema noted Arm (R), no edema noted Leg (L), no edema noted Leg (R), no edema noted Pedal (L), no edema noted Pedal (R), no edema noted 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
[2019-04-29] VITALS: BP 129/66
[2019-04-29 04:00] VITALS: BP 144/70
--- NOTE | 2019-04-29 07:35 | NUR ---
HAND-OFF: Report given to Nelson Mast RN.
[2019-04-29 07:43] VITALS: BP 133/80
--- NOTE | 2019-04-29 07:49 | NUR ---
NURSE NOTES: pt awake alert, no distress. no sob. no c/o pain. call light within reach. bed in lowest position, locked. will monitor. singh patent and intact, draining yellow urine
--- NOTE | 2019-04-29 07:59 | Urology Progress Note ---
Assessment/Plan Status: stable Assessment/Plan: 1. Renal insufficiency, which appears to be acute on chronic, improving. 2. BPH. 3. Lower urinary tract symptoms by history. 4. Possible neurogenic bladder. 5. Adrenal adenoma. 6. Hypospadias. 7. Urethral meatal stricture. maintain singh, placed 04/24, do not remove hand irrigate PRN monitor renal fxn, improving abx as ordered, per ID flomax, consider increasing dose f/u on blood cx cysto later Subjective Allergies: Coded Allergies: No Known Allergies (Unverified , 04/24/19) Subjective all noted, feels fair Objective Last 24 Hour Vital Signs Date Time Temp Pulse Resp B/P (MAP) Pulse Ox O2 Delivery O2 Flow Rate FiO2 04/29/19 07:43 99.0 80 18 133/80 (97) 96 04/29/19 04:00 98.6 84 19 144/70 (94) 96 04/29/19 00:00 99.8 82 20 129/66 (87) 95 04/28/19 21:00 Room Air 04/28/19 20:00 96.8 87 20 139/66 (90) 97 04/28/19 16:00 98.3 80 19 130/82 (98) 97 04/28/19 12:00 98.5 77 19 133/74 (93) 96 04/28/19 09:00 Room Air 04/28/19 08:00 98.9 82 19 125/68 (87) 95 Intake and Output 04/28/19 04/29/19 19:00 07:00 Intake Total 1132.5 ml 820 ml Output Total 800 ml 800 ml Balance 332.5 ml 20 ml Intake Oral 820 ml 820 ml IV Total 312.5 ml Output Urine Total 800 ml 800 ml # Voids 2 # Bowel Movements 1 Microbiology Date/Time Source Procedure Growth Status 04/26/19 18:05 Blood Blood Culture - Preliminary NO GROWTH AFTER 48 HOURS Resulted 04/25/19 06:20 Urine,Clean Catch Urine Culture - Final Klebsiella Pneumoniae Complete Current Medications Medications (Trade) Dose Ordered Sig/Gt Route PRN Reason Start Time Stop Time Status Last Admin Dose Admin Acetaminophen (Tylenol) 650 mg Q4H PRN ORAL Mild Pain/Temp > 100.5 04/26/19 17:37 05/26/19 17:36 Acetaminophen/ Codeine Phosphate (Tylenol #3) 1 tab Q6H PRN ORAL Pain Scale (6-10) 04/26/19 17:36 05/03/19 17:35 Allopurinol (Allopurinol) 300 mg DAILY ORAL 04/27/19 09:00 05/26/19 11:44 04/28/19 08:15 Calcium Carbonate (Os-Dami) 625 mg THREE TIMES A DAY ORAL 04/28/19 13:00 05/26/19 12:59 04/28/19 17:19 Ceftriaxone Sodium 1 gm/ Dextrose 50 ml @ 100 mls/hr Q24H IVPB 04/28/19 16:00 05/05/19 15:59 04/28/19 17:19 Docusate Sodium (Colace) 100 mg THREE TIMES A DAY ORAL 04/26/19 18:00 05/25/19 08:59 04/28/19 17:19 Ergocalciferol (Drisdol) 50,000 intlu QWEEK ORAL 04/27/19 14:00 05/26/19 13:59 04/27/19 14:39 Heparin Sodium (Porcine) (Heparin 5000 units/ml) 5,000 units EVERY 12 HOURS SUBQ 04/26/19 21:00 05/24/19 20:59 04/28/19 22:50 Levothyroxine Sodium (Synthroid) 50 mcg DAILY@0630 ORAL 04/27/19 06:30 05/27/19 06:29 04/29/19 05:40 Magnesium Oxide (Mag-Ox 400mg) 400 mg THREE TIMES A DAY ORAL 04/28/19 13:00 05/28/19 12:59 04/28/19 17:19 Pantoprazole (Protonix) 40 mg EVERY 12 HOURS ORAL 04/26/19 21:00 05/24/19 20:59 04/28/19 22:49 Tamsulosin HCl (Flomax) 0.4 mg BEDTIME ORAL 04/26/19 21:00 05/24/19 20:59 04/28/19 22:49 Height (Feet): 5 Height (Inches): 8.00 Weight (Pounds): 260 Objective exam stable, singh indwelling minimal bleeding at site urine Gerber Almaraz MD Apr 29, 2019 07:59
[2019-04-29] MEDS: Docusate 100mg cap ORAL SCH ×3 (08:05→17:20)
[2019-04-29] MEDS: Magnesium Oxide 400mg tab ORAL SCH ×3 (08:05→17:20)
[2019-04-29] MEDS: Heparin 5000 units/ml inj SUBQ SCH ×2 (08:06→20:58)
[2019-04-29 08:46] LABS: BASOPHILS % (AUTO) 0.9 % (0.0-2.0); EOSINOPHILS % (AUTO) 2.3 % (0.0-3.0); HEMATOCRIT 36.9 % (42.0-52.0); HEMOGLOBIN 12.8 G/DL (14.2-18.0); LYMPHOCYTES % (AUTO) 18.5 % (20.0-45.0); MEAN CORPUSCULAR VOLUME 89 FL (80-99); MONOCYTES % (AUTO) 7.9 % (1.0-10.0); NEUTROPHILS % (AUTO) 70.5 % (45.0-75.0); PLATELET COUNT 237 K/UL (150-450); RED BLOOD COUNT 4.16 M/UL (4.70-6.10); RED CELL DISTRIBUTION WIDTH 10.8 % (11.6-14.8); WHITE BLOOD COUNT 11.4 K/UL (4.8-10.8)
[2019-04-29 09:02] LABS: ALANINE AMINOTRANSFERASE 11 U/L (12-78); ALBUMIN 2.6 G/DL (3.4-5.0); ALBUMIN/GLOBULIN RATIO 0.9 (1.0-2.7); ALKALINE PHOSPHATASE 56 U/L (46-116); ANION GAP 9 mmol/L (5-15); ASPARTATE AMINO TRANSFERASE 13 U/L (15-37); BILIRUBIN,TOTAL 0.6 MG/DL (0.2-1.0); BLOOD UREA NITROGEN 37 mg/dL (7-18); CALCIUM 8.1 MG/DL (8.5-10.1); CARBON DIOXIDE 25 MMOL/L (21-32); CHLORIDE 101 MMOL/L (98-107); CREATININE 1.3 MG/DL (0.55-1.30); PHOSPHORUS 1.9 MG/DL (2.5-4.9); POTASSIUM 3.6 MMOL/L (3.5-5.1); SODIUM 135 MMOL/L (136-145)
[2019-04-29 12:00] VITALS: BP 138/68
--- NOTE | 2019-04-29 13:40 | Surgery Progress Note ---
Surgery Progress Note Subjective Additional Comments no acute events comfortable stable. labs noted wbc 11k Objective Last 24 Hour Vital Signs Date Time Temp Pulse Resp B/P (MAP) Pulse Ox O2 Delivery O2 Flow Rate FiO2 04/29/19 12:00 98.5 80 18 138/68 (91) 97 04/29/19 08:41 Room Air 04/29/19 07:43 99.0 80 18 133/80 (97) 96 04/29/19 04:00 98.6 84 19 144/70 (94) 96 04/29/19 00:00 99.8 82 20 129/66 (87) 95 04/28/19 21:00 Room Air 04/28/19 20:00 96.8 87 20 139/66 (90) 97 04/28/19 16:00 98.3 80 19 130/82 (98) 97 I&O Intake and Output 04/28/19 04/29/19 19:00 07:00 Intake Total 1132.5 ml 820 ml Output Total 800 ml 800 ml Balance 332.5 ml 20 ml Intake Oral 820 ml 820 ml IV Total 312.5 ml Output Urine Total 800 ml 800 ml # Voids 2 # Bowel Movements 1 Cardiovascular: RSR Respiratory: clear Abdomen: soft, flat, non-tender, present bowel sounds, non-distended Extremities: no tenderness, no cyanosis Laboratory Tests Test 04/29/19 07:45 White Blood Count 11.4 K/UL (4.8-10.8) H Red Blood Count 4.16 M/UL (4.70-6.10) L Hemoglobin 12.8 G/DL (14.2-18.0) L Hematocrit 36.9 % (42.0-52.0) L Mean Corpuscular Volume 89 FL (80-99) Mean Corpuscular Hemoglobin 30.8 PG (27.0-31.0) Mean Corpuscular Hemoglobin Concent 34.7 G/DL (32.0-36.0) Red Cell Distribution Width 10.8 % (11.6-14.8) L Platelet Count 237 K/UL (150-450) Mean Platelet Volume 7.4 FL (6.5-10.1) Neutrophils (%) (Auto) 70.5 % (45.0-75.0) Lymphocytes (%) (Auto) 18.5 % (20.0-45.0) L Monocytes (%) (Auto) 7.9 % (1.0-10.0) Eosinophils (%) (Auto) 2.3 % (0.0-3.0) Basophils (%) (Auto) 0.9 % (0.0-2.0) Sodium Level 135 MMOL/L (136-145) L Potassium Level 3.6 MMOL/L (3.5-5.1) Chloride Level 101 MMOL/L (98-107) Carbon Dioxide Level 25 MMOL/L (21-32) Anion Gap 9 mmol/L (5-15) Blood Urea Nitrogen 37 mg/dL (7-18) H Creatinine 1.3 MG/DL (0.55-1.30) Estimat Glomerular Filtration Rate 55.1 mL/min (>60) Glucose Level 118 MG/DL (74-106) H Uric Acid 6.6 MG/DL (2.6-7.2) Calcium Level 8.1 MG/DL (8.5-10.1) L Phosphorus Level 1.9 MG/DL (2.5-4.9) L Magnesium Level 1.6 MG/DL (1.8-2.4) L Total Bilirubin 0.6 MG/DL (0.2-1.0) Aspartate Amino Transf (AST/SGOT) 13 U/L (15-37) L Alanine Aminotransferase (ALT/SGPT) 11 U/L (12-78) L Alkaline Phosphatase 56 U/L (46-116) Total Protein 5.5 G/DL (6.4-8.2) L Albumin 2.6 G/DL (3.4-5.0) L Globulin 2.9 g/dL Albumin/Globulin Ratio 0.9 (1.0-2.7) L Plan Problems: (1) Nausea & vomiting Assessment & Plan: Persistent nausea vomiting for 3 days. Renal insufficiency Does not seem to have clinical bowel obstruction. Nausea and emesis potentially related to electrolyte disturbances. We will follow with exams. improving likely ileus resolving diet as tolerated (2) Incarcerated ventral hernia Assessment & Plan: Fat-containing asymptomatic We will monitor while inpatient Can consider outpatient elective repair (3) Bowel obstruction Assessment & Plan: 1. Moderate distention of proximal small bowel loops with luminal air- fluid levels, with maximum diameter 3.8 cm, most prominent in the left upper quadrant. Transition point is not definitively identified, but may be in the central abdomen. This may represent ileus versus partial obstruction. 2. Fat-containing umbilical herniation. Hernia sac measures 4.9 x 4.0 x 2.8 cm with hernia neck diameter of 1.4 cm. Stranding within the herniated fat may suggest fatty torsion and may be a source of pain. 3. Descending and sigmoid colonic diverticulosis without evidence of acute inflammation. 4. 1.7 cm left adrenal nodule, most likely a benign adenoma. Clinically patient does not seem to have a bowel obstruction. Last bowel movement 2 days ago, last flatus this morning, abdomen soft nontender nondistended. CT findings noted and presumably ileus from electrolyte abnormalities. Ventral hernia fat-containing and asymptomatic at this time. Will monitor for now. Okay for renal diet Trend labs We will follow with recommendations Thank you (4) Leukocytosis (5) Renal failure (6) LFT elevation César Basurto Apr 29, 2019 13:40
[2019-04-29 16:00] VITALS: BP 126/59
[2019-04-29] MEDS: cefTRIAXone 1 GM in D5W 50 ML IVPB SCH (16:19)
--- NOTE | 2019-04-29 16:34 | NUR ---
P.T NOTE: LATE ENTRY 1350 P.T EVALUATION ATTEMPTED HOWEVER PATIENT REFUSED TO PARTICIPATE DESPITE ENCOURAGEMENT. WILL REATTEMPT TOMORROW.
--- NOTE | 2019-04-29 17:19 | Cardiac Electrophysiology PN ---
Assessment/Plan Assessment/Plan 1. Lower extremity edema with elevated BNP of 702. EF 60%. Likely due to renal failure. 2. Sepsis with white count of 21,000. On IV Abx 3. Hypothyroidism. On Synthroid. 4. History of psychosis. 5. Recurrent nausea and vomiting for 3 days with incarcerated ventral hernia. The patient is being followed up by surgery. 6. Elevated LFTs. 7. Aute renal failure. Cr improved to 2.6 8. Replaced Mag and Phos HEATHER RN Subjective Subjective Alert in NAD. Feeling better. SNIF placement pending Objective Last 24 Hour Vital Signs Date Time Temp Pulse Resp B/P (MAP) Pulse Ox O2 Delivery O2 Flow Rate FiO2 04/29/19 16:00 99.4 78 19 126/59 (81) 95 04/29/19 12:00 98.5 80 18 138/68 (91) 97 04/29/19 08:41 Room Air 04/29/19 07:43 99.0 80 18 133/80 (97) 96 04/29/19 04:00 98.6 84 19 144/70 (94) 96 04/29/19 00:00 99.8 82 20 129/66 (87) 95 04/28/19 21:00 Room Air 04/28/19 20:00 96.8 87 20 139/66 (90) 97 Intake and Output 04/28/19 04/29/19 19:00 07:00 Intake Total 1182.5 ml 820 ml Output Total 800 ml 800 ml Balance 382.5 ml 20 ml Intake Oral 820 ml 820 ml IV Total 362.5 ml Output Urine Total 800 ml 800 ml # Voids 2 # Bowel Movements 1 Laboratory Tests Test 04/29/19 07:45 White Blood Count 11.4 K/UL (4.8-10.8) H Red Blood Count 4.16 M/UL (4.70-6.10) L Hemoglobin 12.8 G/DL (14.2-18.0) L Hematocrit 36.9 % (42.0-52.0) L Mean Corpuscular Volume 89 FL (80-99) Mean Corpuscular Hemoglobin 30.8 PG (27.0-31.0) Mean Corpuscular Hemoglobin Concent 34.7 G/DL (32.0-36.0) Red Cell Distribution Width 10.8 % (11.6-14.8) L Platelet Count 237 K/UL (150-450) Mean Platelet Volume 7.4 FL (6.5-10.1) Neutrophils (%) (Auto) 70.5 % (45.0-75.0) Lymphocytes (%) (Auto) 18.5 % (20.0-45.0) L Monocytes (%) (Auto) 7.9 % (1.0-10.0) Eosinophils (%) (Auto) 2.3 % (0.0-3.0) Basophils (%) (Auto) 0.9 % (0.0-2.0) Sodium Level 135 MMOL/L (136-145) L Potassium Level 3.6 MMOL/L (3.5-5.1) Chloride Level 101 MMOL/L (98-107) Carbon Dioxide Level 25 MMOL/L (21-32) Anion Gap 9 mmol/L (5-15) Blood Urea Nitrogen 37 mg/dL (7-18) H Creatinine 1.3 MG/DL (0.55-1.30) Estimat Glomerular Filtration Rate 55.1 mL/min (>60) Glucose Level 118 MG/DL (74-106) H Uric Acid 6.6 MG/DL (2.6-7.2) Calcium Level 8.1 MG/DL (8.5-10.1) L Phosphorus Level 1.9 MG/DL (2.5-4.9) L Magnesium Level 1.6 MG/DL (1.8-2.4) L Total Bilirubin 0.6 MG/DL (0.2-1.0) Aspartate Amino Transf (AST/SGOT) 13 U/L (15-37) L Alanine Aminotransferase (ALT/SGPT) 11 U/L (12-78) L Alkaline Phosphatase 56 U/L (46-116) Total Protein 5.5 G/DL (6.4-8.2) L Albumin 2.6 G/DL (3.4-5.0) L Globulin 2.9 g/dL Albumin/Globulin Ratio 0.9 (1.0-2.7) L Microbiology Date/Time Source Procedure Growth Status 04/26/19 18:05 Blood Blood Culture - Preliminary NO GROWTH AFTER 48 HOURS Resulted 04/26/19 17:55 Blood Blood Culture - Preliminary NO GROWTH AFTER 48 HOURS Resulted Objective HEAD AND NECK: No JVD. LUNGS: Clear. CARDIOVASCULAR: Regular S1 and S2 with no gallop or murmur. ABDOMEN: Soft. EXTREMITIES: A 1+ pitting edema. Bob Ahumada MD Apr 29, 2019 17:19
--- NOTE | 2019-04-29 17:46 | Nephrology Progress Note ---
Assessment/Plan Problem List: (1) Renal failure (ARF), acute on chronic Assessment: resolved (2) Hyponatremia (3) Hypothyroidism (4) Hypotension Assessment Renal failure Acute vs Chronic Rule out Obstruction GI Sxs likely due to renal failure mild Rhabdo Plan Calcium PO Vit D Now has Strong put in by Uro SUGAR results noted continue Hydrate Monitor renal parameters avoid Nephrotoxics Phos binders Urine studies allopurinol po Med surg ? DC Subjective ROS Limited/Unobtainable: No Constitutional: Reports: malaise Objective Objective Last 24 Hour Vital Signs Date Time Temp Pulse Resp B/P (MAP) Pulse Ox O2 Delivery O2 Flow Rate FiO2 04/29/19 16:00 99.4 78 19 126/59 (81) 95 04/29/19 12:00 98.5 80 18 138/68 (91) 97 04/29/19 08:41 Room Air 04/29/19 07:43 99.0 80 18 133/80 (97) 96 04/29/19 04:00 98.6 84 19 144/70 (94) 96 04/29/19 00:00 99.8 82 20 129/66 (87) 95 04/28/19 21:00 Room Air 04/28/19 20:00 96.8 87 20 139/66 (90) 97 Intake and Output 04/28/19 04/29/19 19:00 07:00 Intake Total 1182.5 ml 820 ml Output Total 800 ml 800 ml Balance 382.5 ml 20 ml Intake Oral 820 ml 820 ml IV Total 362.5 ml Output Urine Total 800 ml 800 ml # Voids 2 # Bowel Movements 1 Laboratory Tests 04/29/19 07:45: White Blood Count 11.4H, Red Blood Count 4.16L, Hemoglobin 12.8L, Hematocrit 36.9L, Mean Corpuscular Volume 89, Mean Corpuscular Hemoglobin 30.8, Mean Corpuscular Hemoglobin Concent 34.7, Red Cell Distribution Width 10.8L, Platelet Count 237, Mean Platelet Volume 7.4, Neutrophils (%) (Auto) 70.5, Lymphocytes (%) (Auto) 18.5L, Monocytes (%) (Auto) 7.9, Eosinophils (%) (Auto) 2.3, Basophils (%) (Auto) 0.9, Sodium Level 135L, Potassium Level 3.6, Chloride Level 101, Carbon Dioxide Level 25, Anion Gap 9, Blood Urea Nitrogen 37H, Creatinine 1.3, Estimat Glomerular Filtration Rate 55.1, Glucose Level 118H, Uric Acid 6.6, Calcium Level 8.1L, Phosphorus Level 1.9L, Magnesium Level 1.6L, Total Bilirubin 0.6, Aspartate Amino Transf (AST/SGOT) 13L, Alanine Aminotransferase (ALT/SGPT) 11L, Alkaline Phosphatase 56, Total Protein 5.5L, Albumin 2.6L, Globulin 2.9, Albumin/Globulin Ratio 0.9L Height (Feet): 5 Height (Inches): 8.00 Weight (Pounds): 260 General Appearance: no apparent distress Objective no change Luis Broussard MD Apr 29, 2019 17:46
[2019-04-29] MEDS: Phospha 250 Neutral tab ORAL SCH (18:18)
--- NOTE | 2019-04-29 19:23 | NUR ---
HAND-OFF: Report given to AVANI TOURE.
[2019-04-29 20:00] VITALS: BP 138/63
[2019-04-29] MEDS: Tamsulosin 0.4mg cap ORAL SCH (20:57)
--- NOTE | 2019-04-29 21:00 | NUR ---
NURSE NOTES:received pt, in bed, c/o feeling hungry, sandwich given, skin checked sacral and heels intact, bm x1
[2019-04-30] VITALS: BP 126/70
--- NOTE | 2019-04-30 02:00 | NUR ---
NURSE NOTES:s/b Dr Healy, fo dc in am, bed pending at snf
--- NOTE | 2019-04-30 02:30 | General Progress Note ---
Assessment/Plan Problem List: (1) Bowel obstruction ICD Codes: K56.609 - Unspecified intestinal obstruction, unspecified as to partial versus complete obstruction SNOMED: 66809671 Qualifiers: Qualified Codes: K56.609 - Unspecified intestinal obstruction, unspecified as to partial versus complete obstruction (2) Leukocytosis ICD Codes: D72.829 - Elevated white blood cell count, unspecified SNOMED: 747827886, 755740154 Qualifiers: Qualified Codes: D72.829 - Elevated white blood cell count, unspecified (3) Renal failure ICD Codes: N19 - Unspecified kidney failure SNOMED: 68005885 Qualifiers: Qualified Codes: N17.9 - Acute kidney failure, unspecified (4) LFT elevation ICD Codes: R94.5 - Abnormal results of liver function studies SNOMED: 256499802, 508615494 (5) Incarcerated ventral hernia ICD Codes: K43.6 - Other and unspecified ventral hernia with obstruction, without gangrene SNOMED: 937860153 (6) Nausea & vomiting ICD Codes: R11.2 - Nausea with vomiting, unspecified SNOMED: 44506886 (7) Renal failure (ARF), acute on chronic ICD Codes: N17.9 - Acute kidney failure, unspecified; N18.9 - Chronic kidney disease, unspecified SNOMED: 488959690 Qualifiers: (8) Hyponatremia ICD Codes: E87.1 - Hypo-osmolality and hyponatremia SNOMED: 54088467 (9) Hypothyroidism ICD Codes: E03.9 - Hypothyroidism, unspecified SNOMED: 35593048 (10) Hypotension ICD Codes: I95.9 - Hypotension, unspecified SNOMED: 45863589 (11) Psychosis ICD Codes: F29 - Unspecified psychosis not due to a substance or known physiological condition SNOMED: 04121587 Qualifiers: Status: doing well, stable Status Narrative Improved will discharge to [facility] Assessment/Plan: He will be hydrated, nephrology consult will be obtained. He will be empirically treated with Rocephin and his psych meds will be continued. Most likely his nausea/vomiting is due to nephrotic syndrome. Will follow his labs. Subjective Date patient seen: Apr 29, 2019 Time patient seen: 23:50 Constitutional: Reports: no symptoms HEENT: Reports: no symptoms Cardiovascular: Reports: no symptoms Respiratory: Reports: no symptoms Gastrointestinal/Abdominal: Reports: no symptoms Genitourinary: Reports: no symptoms Neurologic/Psychiatric: Reports: no symptoms Endocrine: Reports: no symptoms Hematologic/Lymphatic: Reports: no symptoms Allergies: Coded Allergies: No Known Allergies (Unverified , 04/24/19) Objective Last 24 Hour Vital Signs Date Time Temp Pulse Resp B/P (MAP) Pulse Ox O2 Delivery O2 Flow Rate FiO2 04/30/19 00:00 99.5 85 18 126/70 (88) 95 04/29/19 21:00 Room Air 04/29/19 20:00 98.8 97 18 138/63 (88) 97 04/29/19 16:00 99.4 78 19 126/59 (81) 95 04/29/19 12:00 98.5 80 18 138/68 (91) 97 04/29/19 08:41 Room Air 04/29/19 07:43 99.0 80 18 133/80 (97) 96 04/29/19 04:00 98.6 84 19 144/70 (94) 96 Intake and Output 04/29/19 04/30/19 18:59 06:59 Intake Total 1300 ml Output Total 1200 ml Balance 100 ml Intake Oral 1300 ml Output Urine Total 1200 ml # Bowel Movements 2 1 Laboratory Tests 04/29/19 07:45: White Blood Count 11.4H, Red Blood Count 4.16L, Hemoglobin 12.8L, Hematocrit 36.9L, Mean Corpuscular Volume 89, Mean Corpuscular Hemoglobin 30.8, Mean Corpuscular Hemoglobin Concent 34.7, Red Cell Distribution Width 10.8L, Platelet Count 237, Mean Platelet Volume 7.4, Neutrophils (%) (Auto) 70.5, Lymphocytes (%) (Auto) 18.5L, Monocytes (%) (Auto) 7.9, Eosinophils (%) (Auto) 2.3, Basophils (%) (Auto) 0.9, Sodium Level 135L, Potassium Level 3.6, Chloride Level 101, Carbon Dioxide Level 25, Anion Gap 9, Blood Urea Nitrogen 37H, Creatinine 1.3, Estimat Glomerular Filtration Rate 55.1, Glucose Level 118H, Uric Acid 6.6, Calcium Level 8.1L, Phosphorus Level 1.9L, Magnesium Level 1.6L, Total Bilirubin 0.6, Aspartate Amino Transf (AST/SGOT) 13L, Alanine Aminotransferase (ALT/SGPT) 11L, Alkaline Phosphatase 56, Total Protein 5.5L, Albumin 2.6L, Globulin 2.9, Albumin/Globulin Ratio 0.9L Height (Feet): 5 Height (Inches): 8.00 Weight (Pounds): 260 General Appearance: WD/WN EENT: PERRL/EOMI Neck: non-tender, normal alignment, supple Cardiovascular: normal peripheral pulses, normal rate, regular rhythm Respiratory/Chest: lungs clear Abdomen: normal bowel sounds, non tender, soft Pelvis: normal external exam Genitourinary/Rectal: normal genital exam Extremities: normal range of motion Edema: no edema noted Arm (L), no edema noted Arm (R), no edema noted Leg (L), no edema noted Leg (R), no edema noted Pedal (L), no edema noted Pedal (R), no edema noted Generalized Edema: trace edema Neurologic: office administrative assistant II-XII grossly normal, no motor/sensory deficits, abnormal gait , alert, oriented x 3, responsive, normal mood/affect Skin: normal pigmentation, warm/dry Jorje Acosta MD Apr 30, 2019 02:30
[2019-04-30 04:06] VITALS: BP 142/72
--- NOTE | 2019-04-30 05:17 | NUR ---
Patient slept well,denies pain, temp 99.9.
--- NOTE | 2019-04-30 07:36 | NUR ---
HAND-OFF: Report given to Nasrin.
--- NOTE | 2019-04-30 07:53 | NUR ---
NURSE NOTES: Received patient awake and alert,respirations unlabored.Strong catheter is in place and draining clear yellow urine.Iv saline lock to right arm intact.Patient state he ate breakfast.Bed alarm is on,call light within reach.
[2019-04-30 08:00] VITALS: BP 151/57
[2019-04-30] MEDS: Magnesium Oxide 400mg tab ORAL SCH ×2 (09:32→13:39)
[2019-04-30] MEDS: Docusate 100mg cap ORAL SCH ×2 (09:32→13:39)
[2019-04-30] MEDS: Phospha 250 Neutral tab ORAL SCH ×2 (09:33→13:39)
[2019-04-30] MEDS: Heparin 5000 units/ml inj SUBQ SCH (09:35)
[2019-04-30] MEDS ORDERED: DOCUSATE SODIU100 MG ORAL (10:25)
[2019-04-30] MEDS ORDERED: ACETAMINOPHEN-1 EAC1 ORAL (10:25)
[2019-04-30] MEDS ORDERED: ALLOPURINOL300 M1 ORAL (10:25)
[2019-04-30] MEDS ORDERED: VITAMIN D250000 UNI1 ORAL (10:26)
[2019-04-30] MEDS ORDERED: SYNTHROID25 MCG ORAL (10:27)
[2019-04-30] MEDS ORDERED: PROTONIX40 MG ORAL (10:28)
[2019-04-30] MEDS ORDERED: MAGNESIUM OXID400 M2 PO (10:28)
[2019-04-30] MEDS ORDERED: PHOSPHA 250 NE250 M1 ORAL (10:29)
[2019-04-30] MEDS ORDERED: FLOMAX0.4 MG ORAL (10:29)
--- NOTE | 2019-04-30 10:32 | Urology Progress Note ---
Assessment/Plan Status: doing well, stable Assessment/Plan: 1. Renal insufficiency, which appears to be acute on chronic, improving. 2. BPH. 3. Lower urinary tract symptoms by history. 4. Possible neurogenic bladder. 5. Adrenal adenoma. 6. Hypospadias. 7. Urethral meatal stricture. maintain singh, placed 04/24, do not remove hand irrigate PRN monitor renal fxn, improving abx as ordered, per ID flomax, consider increasing dose f/u on blood cx cysto later, can be done as outpt may need TURP at some point Subjective Allergies: Coded Allergies: No Known Allergies (Unverified , 04/24/19) Subjective all noted, feels fair Objective Last 24 Hour Vital Signs Date Time Temp Pulse Resp B/P (MAP) Pulse Ox O2 Delivery O2 Flow Rate FiO2 04/30/19 08:00 97.9 83 18 151/57 (88) 94 04/30/19 04:06 99.9 88 18 142/72 (95) 99 04/30/19 00:00 99.5 85 18 126/70 (88) 95 04/29/19 21:00 Room Air 04/29/19 20:00 98.8 97 18 138/63 (88) 97 04/29/19 16:00 99.4 78 19 126/59 (81) 95 04/29/19 12:00 98.5 80 18 138/68 (91) 97 Intake and Output 04/29/19 04/30/19 18:59 06:59 Intake Total 1300 ml 500 ml Output Total 1200 ml 1100 ml Balance 100 ml -600 ml Intake Oral 1300 ml 500 ml Output Urine Total 1200 ml 1100 ml # Bowel Movements 2 4 Microbiology Date/Time Source Procedure Growth Status 04/26/19 18:05 Blood Blood Culture - Preliminary NO GROWTH AFTER 72 HOURS Resulted 04/25/19 06:20 Urine,Clean Catch Urine Culture - Final Klebsiella Pneumoniae Complete Current Medications Medications (Trade) Dose Ordered Sig/Gt Route PRN Reason Start Time Stop Time Status Last Admin Dose Admin Acetaminophen (Tylenol) 650 mg Q4H PRN ORAL Mild Pain/Temp > 100.5 04/26/19 17:37 05/26/19 17:36 Acetaminophen/ Codeine Phosphate (Tylenol #3) 1 tab Q6H PRN ORAL Pain Scale (6-10) 04/26/19 17:36 05/03/19 17:35 Allopurinol (Allopurinol) 300 mg DAILY ORAL 04/27/19 09:00 05/26/19 11:44 04/30/19 09:32 Ceftriaxone Sodium 1 gm/ Dextrose 50 ml @ 100 mls/hr Q24H IVPB 04/28/19 16:00 05/05/19 15:59 04/29/19 16:19 Docusate Sodium (Colace) 100 mg THREE TIMES A DAY ORAL 04/26/19 18:00 05/25/19 08:59 04/30/19 09:32 Ergocalciferol (Drisdol) 50,000 intlu QWEEK ORAL 04/27/19 14:00 05/26/19 13:59 04/27/19 14:39 Heparin Sodium (Porcine) (Heparin 5000 units/ml) 5,000 units EVERY 12 HOURS SUBQ 04/26/19 21:00 05/24/19 20:59 04/30/19 09:35 Levothyroxine Sodium (Synthroid) 50 mcg DAILY@0630 ORAL 04/27/19 06:30 05/27/19 06:29 04/30/19 05:35 Magnesium Oxide (Mag-Ox 400mg) 400 mg THREE TIMES A DAY ORAL 04/28/19 13:00 05/28/19 12:59 04/30/19 09:32 Pantoprazole (Protonix) 40 mg EVERY 12 HOURS ORAL 04/26/19 21:00 05/24/19 20:59 04/30/19 09:33 Phosphorus (Phospha 250 Neutral) 500 mg THREE TIMES A DAY ORAL 04/29/19 18:00 05/29/19 17:59 04/30/19 09:33 Tamsulosin HCl (Flomax) 0.4 mg BEDTIME ORAL 04/26/19 21:00 05/24/19 20:59 04/29/19 20:57 Height (Feet): 5 Height (Inches): 8.00 Weight (Pounds): 260 Objective exam stable, singh indwelling minimal bleeding at site urine Gerber Almaraz MD Apr 30, 2019 10:32
[2019-04-30] MEDS ORDERED: CEPHALEXIN500 MG ORAL ×3 (11:35→11:41)
[2019-04-30 12:00] VITALS: BP 139/72
--- NOTE | 2019-04-30 12:14 | NUR ---
DISCHARGE DISPOSITION: PLEASE READ PATIENT TO BE DISCHARGED TO [facility] [address] [facility] [address] T: [phone]>> CALL FOR REPORT [facility] ETA 1400 SKILLED
--- NOTE | 2019-04-30 13:40 | NUR ---
RD ASSESSMENT & RECOMMENDATIONS SEE CARE ACTIVITY FOR COMPLETE ASSESSMENT DAILY ESTIMATED NEEDS: Needs based on ARF- improving/ 83kg abw 25-30 kcals/kg total kcals 0.8-1.2 g protein/kg 66-100 g total protein 25-30 mL/kg total fluid mLs NUTRITION DIAGNOSIS: Altered nutrition related lab values R/T ARF, prediabetes as evidenced by elev creat (8.4 -> 4.0-> wnl), elev BUN (127->115-> 37), elev phos (5.0-> now low), elev A1C 5.9 w/ good glycemic control. (UPDATED) CURRENT DIET:RENAL, soft easy chew PO DIET RECOMMENDATIONS: RENAL / texture per ASSISTANT CHIEF ENGINEER ADDITIONAL RECOMMENDATIONS: * Standing wt for accurate CBW * Monitor renal fxn and lytes closely -> renal fxn improving at this time - * Monitor BGs closely, need for hypoglycemics (A1C 5.9) * Add MVI x 1 for skin integrity
--- NOTE | 2019-04-30 13:54 | Nephrology Progress Note ---
Assessment/Plan Problem List: (1) Renal failure (ARF), acute on chronic Assessment: resolved (2) Hyponatremia (3) Hypothyroidism (4) Hypotension Assessment Renal failure Acute vs Chronic Rule out Obstruction GI Sxs likely due to renal failure mild Rhabdo Plan Calcium PO Vit D Now has Strong put in by Uro SUGAR results noted continue Hydrate Monitor renal parameters avoid Nephrotoxics Phos binders Urine studies allopurinol po Med surg ? DC Subjective ROS Limited/Unobtainable: No Constitutional: Reports: malaise Objective Objective Last 24 Hour Vital Signs Date Time Temp Pulse Resp B/P (MAP) Pulse Ox O2 Delivery O2 Flow Rate FiO2 04/30/19 09:00 Room Air 04/30/19 08:00 97.9 83 18 151/57 (88) 94 04/30/19 04:06 99.9 88 18 142/72 (95) 99 04/30/19 00:00 99.5 85 18 126/70 (88) 95 04/29/19 21:00 Room Air 04/29/19 20:00 98.8 97 18 138/63 (88) 97 04/29/19 16:00 99.4 78 19 126/59 (81) 95 Intake and Output 04/29/19 04/30/19 19:00 07:00 Intake Total 1300 ml 500 ml Output Total 1200 ml 1100 ml Balance 100 ml -600 ml Intake Oral 1300 ml 500 ml Output Urine Total 1200 ml 1100 ml # Bowel Movements 2 4 Current Medications Medications (Trade) Dose Ordered Sig/Gt Route PRN Reason Start Time Stop Time Status Last Admin Dose Admin Acetaminophen (Tylenol) 650 mg Q4H PRN ORAL Mild Pain/Temp > 100.5 04/26/19 17:37 05/26/19 17:36 Acetaminophen/ Codeine Phosphate (Tylenol #3) 1 tab Q6H PRN ORAL Pain Scale (6-10) 04/26/19 17:36 05/03/19 17:35 Allopurinol (Allopurinol) 300 mg DAILY ORAL 04/27/19 09:00 05/26/19 11:44 04/30/19 09:32 Ceftriaxone Sodium 1 gm/ Dextrose 50 ml @ 100 mls/hr Q24H IVPB 04/28/19 16:00 05/05/19 15:59 04/29/19 16:19 Docusate Sodium (Colace) 100 mg THREE TIMES A DAY ORAL 04/26/19 18:00 05/25/19 08:59 04/30/19 13:39 Ergocalciferol (Drisdol) 50,000 intlu QWEEK ORAL 04/27/19 14:00 05/26/19 13:59 04/27/19 14:39 Heparin Sodium (Porcine) (Heparin 5000 units/ml) 5,000 units EVERY 12 HOURS SUBQ 04/26/19 21:00 05/24/19 20:59 04/30/19 09:35 Levothyroxine Sodium (Synthroid) 50 mcg DAILY@0630 ORAL 04/27/19 06:30 05/27/19 06:29 04/30/19 05:35 Magnesium Oxide (Mag-Ox 400mg) 400 mg THREE TIMES A DAY ORAL 04/28/19 13:00 05/28/19 12:59 04/30/19 13:39 Pantoprazole (Protonix) 40 mg EVERY 12 HOURS ORAL 04/26/19 21:00 05/24/19 20:59 04/30/19 09:33 Phosphorus (Phospha 250 Neutral) 500 mg THREE TIMES A DAY ORAL 04/29/19 18:00 05/29/19 17:59 04/30/19 13:39 Tamsulosin HCl (Flomax) 0.4 mg BEDTIME ORAL 04/26/19 21:00 05/24/19 20:59 04/29/19 20:57 Height (Feet): 5 Height (Inches): 8.00 Weight (Pounds): 260 General Appearance: no apparent distress Objective no change Luis Broussard MD Apr 30, 2019 13:54
--- NOTE | 2019-04-30 14:13 | Surgery Progress Note ---
Surgery Progress Note Subjective Symptoms: improved, pain absent Objective Last 24 Hour Vital Signs Date Time Temp Pulse Resp B/P (MAP) Pulse Ox O2 Delivery O2 Flow Rate FiO2 04/30/19 09:00 Room Air 04/30/19 08:00 97.9 83 18 151/57 (88) 94 04/30/19 04:06 99.9 88 18 142/72 (95) 99 04/30/19 00:00 99.5 85 18 126/70 (88) 95 04/29/19 21:00 Room Air 04/29/19 20:00 98.8 97 18 138/63 (88) 97 04/29/19 16:00 99.4 78 19 126/59 (81) 95 I&O Intake and Output 04/29/19 04/30/19 19:00 07:00 Intake Total 1300 ml 500 ml Output Total 1200 ml 1100 ml Balance 100 ml -600 ml Intake Oral 1300 ml 500 ml Output Urine Total 1200 ml 1100 ml # Bowel Movements 2 4 Cardiovascular: RSR Respiratory: clear Abdomen: soft, flat, non-tender, present bowel sounds Extremities: no tenderness, no cyanosis Plan Problems: (1) Nausea & vomiting Assessment & Plan: Persistent nausea vomiting for 3 days. Renal insufficiency Does not seem to have clinical bowel obstruction. Nausea and emesis potentially related to electrolyte disturbances. We will follow with exams. improving likely ileus resolving diet as tolerated (2) Incarcerated ventral hernia Assessment & Plan: Fat-containing asymptomatic We will monitor while inpatient Can consider outpatient elective repair (3) Bowel obstruction Assessment & Plan: 1. Moderate distention of proximal small bowel loops with luminal air- fluid levels, with maximum diameter 3.8 cm, most prominent in the left upper quadrant. Transition point is not definitively identified, but may be in the central abdomen. This may represent ileus versus partial obstruction. 2. Fat-containing umbilical herniation. Hernia sac measures 4.9 x 4.0 x 2.8 cm with hernia neck diameter of 1.4 cm. Stranding within the herniated fat may suggest fatty torsion and may be a source of pain. 3. Descending and sigmoid colonic diverticulosis without evidence of acute inflammation. 4. 1.7 cm left adrenal nodule, most likely a benign adenoma. Clinically patient does not seem to have a bowel obstruction. Last bowel movement 2 days ago, last flatus this morning, abdomen soft nontender nondistended. CT findings noted and presumably ileus from electrolyte abnormalities. Ventral hernia fat-containing and asymptomatic at this time. Will monitor for now. Okay for renal diet Trend labs We will follow with recommendations Thank you (4) Leukocytosis (5) Renal failure (6) LFT elevation César Basurto Apr 30, 2019 14:13
--- NOTE | 2019-04-30 14:32 | NUR ---
NURSE NOTES: Report given patient to start po antibiotics as ordered.
--- NOTE | 2019-04-30 14:32 | NUR ---
NURSE NOTES: Report given to Guero TOURE at [facility] Personnel will transport patient,IV removed,ID hospital band removed.Patient has personal belongings.Patient will go with singh catheter. Addendum: 04/30/19 at 1604 by DEQUAN SCHROEDER RN RN RN Aware not to removed singh Catheter,per DR Logan calixto.
--- NOTE | 2019-04-30 14:52 | Cardiology Report ---
APPROVED REPORT EXAM: Two-dimensional and M-mode echocardiogram with Doppler and color Doppler. INDICATION Congestive Heart Failure M-Mode DIMENSIONS IVSd1.8 (0.7-1.1cm)Left Atrium (MM)4.0 (1.6-4.0cm) LVDd3.6 (3.5-5.6cm)Aortic Root3.3 (2.0-3.7cm) PWd1.4 (0.7-1.1cm)Aortic Cusp Exc.1.8 (1.5-2.0cm) LVDs1.8 (2.5-4.0cm) PWs2.1 cm Normal left ventricular chamber size, systolic function and wall motion. Left ventricular ejection fraction estimated to be 60 %. Mild left ventricular hypertrophy. No evidence of pericardial effusion. All other cardiac chamber sizes are within normal limits. Focal aortic valve sclerosis with adequate cusp excursion. Mildly thickened mitral valve leaflets with normal excursion. Mitral annulus and aortic root calcification. Pulmonic valve not well visualized. Normal tricuspid valve structure. IVC is normal in size with physiological collapse. A color flow and spectral Doppler study was performed and revealed: No aortic regurgitation. No mitral regurgitation. reduced left ventricular relaxation c/w impaired relaxation diastolic dysfunction. Trace tricuspid regurgitation. Tricuspid systolic velocities suggests peak right ventricular systolic pressure of 12 mmHg.
--- NOTE | 2019-04-30 15:14 | Infectious Diseases Prog Note ---
Assessment/Plan Assessment/Plan ASSESSMENT AND PLAN: 1. klebsiella uti, sepsis, leukocytosis, ? sbo, coag neg staph / bc likely contaminant - rocephin - day # 5 - can change to po keflex x 5 days - clinically improved - monitor labs - continue treatment per primary and consultants - per surgery note - no bowel obstruction clinically - d/w RN about abx 2. Acute kidney injury and elevated creatinine. Nephrology and Urology following. 3. Signh. 4. Ileus greater than small bowel obstruction. Surgery following. 5. Mild anemia. 6. Acute kidney injury. 7. Hypothyroidism. Continue thyroid supplementation. 8. Hypernatremia. 9. Diabetes. 10. Psych disease. 11. COPD. 12. Blood sugar treatment per primary loss prevention consultant. 13. Hyperlipidemia. 14. Metabolic encephalopathy. 15. Schizophrenia history. 16. Allergies are negative. 17. Social history is negative. 18. Family history is noncontributory. 19. MAR was noted. 20. Case was discussed with RN. 21. Continue treatment per primary consultants. Subjective Constitutional: Denies: fever HEENT: Denies: congestion Respiratory: Denies: shortness of breath Cardiovascular: Denies: chest pain Genitourinary: Denies: dysuria, hematuria Neurologic: Denies: headache Psychiatric: Denies: depression Skin: Denies: rash Hematologic: Denies: bleeding Allergies: Coded Allergies: No Known Allergies (Unverified , 04/24/19) Objective Vital Signs Last 24 Hour Vital Signs Date Time Temp Pulse Resp B/P (MAP) Pulse Ox O2 Delivery O2 Flow Rate FiO2 04/30/19 09:00 Room Air 04/30/19 08:00 97.9 83 18 151/57 (88) 94 04/30/19 04:06 99.9 88 18 142/72 (95) 99 04/30/19 00:00 99.5 85 18 126/70 (88) 95 04/29/19 21:00 Room Air 04/29/19 20:00 98.8 97 18 138/63 (88) 97 04/29/19 16:00 99.4 78 19 126/59 (81) 95 Height (Feet): 5 Height (Inches): 8.00 Weight (Pounds): 260 General Appearance: no acute distress HEENT: normocephalic, atraumatic, anicteric, mucous membranes moist Respiratory/Chest: lungs clear, normal breath sounds, no respiratory distress, no accessory muscle use Cardiovascular: normal rate, regular rhythm, no gallop/murmur, no JVD Abdomen: normal bowel sounds, soft, non tender, no organomegaly, non distended Genitourinary: other - no singh Extremities: no cyanosis Skin: no rash 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 Moderate distention of proximal small bowel loops with luminal air- fluid levels, with maximum diameter 3.8 cm, most prominent in the left upper quadrant. Transition point is not definitively identified, but may be in the central abdomen. This may represent ileus versus partial obstruction. 2. Fat-containing umbilical herniation. Hernia sac measures 4.9 x 4.0 x 2.8 cm with hernia neck diameter of 1.4 cm. Stranding within the herniated fat may suggest fatty torsion and may be a source of pain. 3. Descending and sigmoid colonic diverticulosis without evidence of acute inflammation. 4. 1.7 cm left adrenal nodule, most likely a benign adenoma. Chest x-ray - nad, report noted Microbiology Date/Time Source Procedure Growth Status 04/26/19 18:05 Blood Blood Culture - Preliminary NO GROWTH AFTER 72 HOURS Resulted 04/25/19 06:20 Urine,Clean Catch Urine Culture - Final Klebsiella Pneumoniae Complete Labs Test 04/28/19 04:45 04/29/19 07:45 White Blood Count 10.8 K/UL (4.8-10.8) 11.4 K/UL (4.8-10.8) Red Blood Count 4.16 M/UL (4.70-6.10) 4.16 M/UL (4.70-6.10) Hemoglobin 13.1 G/DL (14.2-18.0) 12.8 G/DL (14.2-18.0) Hematocrit 36.9 % (42.0-52.0) 36.9 % (42.0-52.0) Mean Corpuscular Volume 89 FL (80-99) 89 FL (80-99) Mean Corpuscular Hemoglobin 31.6 PG (27.0-31.0) 30.8 PG (27.0-31.0) Mean Corpuscular Hemoglobin Concent 35.5 G/DL (32.0-36.0) 34.7 G/DL (32.0-36.0) Red Cell Distribution Width 10.8 % (11.6-14.8) 10.8 % (11.6-14.8) Platelet Count 217 K/UL (150-450) 237 K/UL (150-450) Mean Platelet Volume 7.8 FL (6.5-10.1) 7.4 FL (6.5-10.1) Neutrophils (%) (Auto) 76.8 % (45.0-75.0) 70.5 % (45.0-75.0) Lymphocytes (%) (Auto) 14.0 % (20.0-45.0) 18.5 % (20.0-45.0) Monocytes (%) (Auto) 7.2 % (1.0-10.0) 7.9 % (1.0-10.0) Eosinophils (%) (Auto) 1.4 % (0.0-3.0) 2.3 % (0.0-3.0) Basophils (%) (Auto) 0.6 % (0.0-2.0) 0.9 % (0.0-2.0) Sodium Level 135 MMOL/L (136-145) 135 MMOL/L (136-145) Potassium Level 3.2 MMOL/L (3.5-5.1) 3.6 MMOL/L (3.5-5.1) Chloride Level 101 MMOL/L (98-107) 101 MMOL/L (98-107) Carbon Dioxide Level 24 MMOL/L (21-32) 25 MMOL/L (21-32) Anion Gap 10 mmol/L (5-15) 9 mmol/L (5-15) Blood Urea Nitrogen 57 mg/dL (7-18) 37 mg/dL (7-18) Creatinine 1.7 MG/DL (0.55-1.30) 1.3 MG/DL (0.55-1.30) Estimat Glomerular Filtration Rate 40.4 mL/min (>60) 55.1 mL/min (>60) Glucose Level 121 MG/DL (74-106) 118 MG/DL (74-106) Uric Acid 8.4 MG/DL (2.6-7.2) 6.6 MG/DL (2.6-7.2) Calcium Level 7.9 MG/DL (8.5-10.1) 8.1 MG/DL (8.5-10.1) Phosphorus Level 2.1 MG/DL (2.5-4.9) 1.9 MG/DL (2.5-4.9) Magnesium Level 1.7 MG/DL (1.8-2.4) 1.6 MG/DL (1.8-2.4) Total Bilirubin 0.5 MG/DL (0.2-1.0) 0.6 MG/DL (0.2-1.0) Aspartate Amino Transf (AST/SGOT) 14 U/L (15-37) 13 U/L (15-37) Alanine Aminotransferase (ALT/SGPT) 11 U/L (12-78) 11 U/L (12-78) Alkaline Phosphatase 66 U/L (46-116) 56 U/L (46-116) C-Reactive Protein, Quantitative 5.4 mg/dL (0.00-0.90) Total Protein 5.7 G/DL (6.4-8.2) 5.5 G/DL (6.4-8.2) Albumin 2.7 G/DL (3.4-5.0) 2.6 G/DL (3.4-5.0) Globulin 3.0 g/dL 2.9 g/dL Albumin/Globulin Ratio 0.9 (1.0-2.7) 0.9 (1.0-2.7) Current Medications Medications (Trade) Dose Ordered Sig/Gt Route PRN Reason Start Time Stop Time Status Last Admin Dose Admin Acetaminophen (Tylenol) 650 mg Q4H PRN ORAL Mild Pain/Temp > 100.5 04/26/19 17:37 05/26/19 17:36 Acetaminophen/ Codeine Phosphate (Tylenol #3) 1 tab Q6H PRN ORAL Pain Scale (6-10) 04/26/19 17:36 05/03/19 17:35 Allopurinol (Allopurinol) 300 mg DAILY ORAL 04/27/19 09:00 05/26/19 11:44 04/30/19 09:32 Ceftriaxone Sodium 1 gm/ Dextrose 50 ml @ 100 mls/hr Q24H IVPB 04/28/19 16:00 05/05/19 15:59 04/29/19 16:19 Docusate Sodium (Colace) 100 mg THREE TIMES A DAY ORAL 04/26/19 18:00 05/25/19 08:59 04/30/19 13:39 Ergocalciferol (Drisdol) 50,000 intlu QWEEK ORAL 04/27/19 14:00 05/26/19 13:59 04/27/19 14:39 Heparin Sodium (Porcine) (Heparin 5000 units/ml) 5,000 units EVERY 12 HOURS SUBQ 04/26/19 21:00 05/24/19 20:59 04/30/19 09:35 Levothyroxine Sodium (Synthroid) 50 mcg DAILY@0630 ORAL 04/27/19 06:30 05/27/19 06:29 04/30/19 05:35 Magnesium Oxide (Mag-Ox 400mg) 400 mg THREE TIMES A DAY ORAL 04/28/19 13:00 05/28/19 12:59 04/30/19 13:39 Pantoprazole (Protonix) 40 mg EVERY 12 HOURS ORAL 04/26/19 21:00 05/24/19 20:59 04/30/19 09:33 Phosphorus (Phospha 250 Neutral) 500 mg THREE TIMES A DAY ORAL 04/29/19 18:00 05/29/19 17:59 04/30/19 13:39 Tamsulosin HCl (Flomax) 0.4 mg BEDTIME ORAL 04/26/19 21:00 05/24/19 20:59 04/29/19 20:57 Annita Proctor MD Apr 30, 2019 15:14
--- NOTE | 2019-04-30 16:17 | Cardiology Report ---
APPROVED REPORT EKG Measurement Heart [id number] SD [id number] [id number] Normal sinus rhythm Right bundle branch block Abnormal ECG
--- NOTE | 2019-05-02 09:18 | Discharge Summary ---
Discharge Summary Discharge Summary _ DATE OF ADMISSION: 04/24/2019 DATE OF DISCHARGE: 04/30/2019 DISCHARGED BY: Dr Acosta REASON FOR ADMISSION: 71 years old male, resident of [facility], with past medical history of diabetes mellitus, COPD, psychiatric disorder, presented to emergency department complaining of nausea and vomiting for the last 2 days. Patient reported that he was unable to keep any food down. Patient reported multiple episodes of vomiting, but no abdominal pain. No hematemesis. He denied fever and chills. He denied cough,. He denied diarrhea. Upon evaluation blood pressure was on the low side 91/68. Laboratory work-up revealed marked leukocytosis WBC 21.6, stable hemoglobin and hematocrit. Markedly elevated renal parameters BUN 127, creatinine 8.4. Glucose 173. Sodium 124. CK 656. Elevated bilirubin: total bilirubin 1.7, direct bilirubin 0.5. Lipase 258. EKG revealed normal sinus rhythm, no acute ischemic changes. Chest x-ray demonstrated no acute cardiopulmonary pathology. CT of the abdomen and pelvis revealed moderate distention of proximal small bowel loops with luminal air-fluid levels, most prominent in the left upper quadrant. May represent ileus versus partial obstruction. Fat-containing umbilical herniation. Stranding within the herniated fat may suggest fatty torsion and may be a source of pain. Descending and sigmoid colonic diverticulosis without evidence of acute inflammation. 1.7 cm left adrenal nodule, most likely a benign adenoma. In the emergency department patient started on the IV fluids , pancultured and started on broad-spectrum antibiotics. Surgeon consulted. Patient subsequently admitted to monitored floor CONSULTANTS: fleet technician Dr. Wild ID specialist sort worker Dr. Broussard surgery Dr. Basurto urology [facility] COURSE: Patient admitted to monitored floor Surgeon , fleet technician, sort worker and ID specialist closely followed. Patient was continued on aggressive IV hydration and empiric antibiotics. Follow-up abdominal x-ray revealed moderate stool throughout the rectosigmoid region, raising possibility of constipation. Bowel regimen instituted. Bowel gas pattern otherwise appeared unremarkable. Patient passed flatus , started on liquid diet and advanced as tolerated. Abdominal exam was benign. Per surgeon, ventral hernia appeared to be asymptomatic. Surgeon recommended to monitor while patient was inpatient and advised on outpatient elective repair. Symptomatic treatment provided. No clinical evidence of bowel obstruction. Patient likely had ileus, which gradually resolved. Patient was able to tolerate diet. Renal ultrasound demonstrated no hydronephrosis . Patient also had mild rhabdomyolysis. CK trended down from initial 656 to 260. Patient had hypospadias and urethral meatal stricture, requiring placement of catheter by urologist. Strong catheter was subsequently placed by urologist. Urologist recommended hand irrigate catheter as needed and do not remove catheter. Per urologist, cystoscopy was recommended, which can be done as outpatient. At some point patient may also need TURP. Renal parameters and electrolytes were closely monitored. Electrolytes were corrected. Nephrotoxins were avoided. Urine studies were done. Patient started on allopurinol. Prior to discharge sodium 135 from initial 124. BUN from 127 down to 37 and creatinine from 8.4 down to 1.3. Per sort worker, patient had renal failure acute on chronic which resolved. [employer]p [employer] closely followed. Hemodynamic status was closely monitored. Echocardiogram revealed preserved ejection fraction of 60%. Mild left ventricular hypertrophy. No evidence of wall motion abnormality. Right ventricular systolic pressure of 12. Lipid panel revealed elevated triglycerides of 195. Patient was counseled on low-fat low-cholesterol diet. Patient noted to have lower extremity edema and elevated BNP of 702, most likely due to renal failure. Infectious disease specialist followed. Blood culture revealed 1 out of 4 Staph coagulase negative, likely contaminant. Repeated blood culture on 04/26 were negative. Urine culture revealed Klebsiella pneumonia. Patient was on antibiotic as per ID specialist recommendation. ID specialist advised to change antibiotic to oral and complete antibiotic course as outpatient. Levothyroxine continued. DVT and GI prophylaxis provided. Hemoglobin A1c 5.9 at goal. Blood sugar appears stable. Patient clinically improved. Patient was stable for discharge to senior care facility as arranged for continuation of care. FINAL DIAGNOSES: Sepsis due to UTI Klebsiella UTI Renal failure, acute on chronic Acute hyponatremia-resolved Hypotension-resolved Incarcerated ventral hernia, fat-containing, asymptomatic Possible bowel obstruction, Likely ileus-resolved Mild rhabdomyolysis Metabolic encephalopathy Hypothyroidism Lower extremity edema with elevated BNP , most likely due to renal failure BPH Possible neurogenic bladder Adrenal adenoma Hypospadias Urethral meatal stricture Schizophrenia DISCHARGE MEDICATIONS: See Medication Reconciliation list. DISCHARGE INSTRUCTIONS: Patient was discharged to the senior care [facility]. Follow up with medical doctor at the facility. I have been assigned to dictate discharge summary for this account. I was not involved in the patient's management. Bria Nguyễn NP May 02, 2019 09:18
[2019-05-03] MEDS ORDERED: Vitamin D 50,000 units cap ORAL SCH (17:00)
== END 2019-04-30 14:50 | DRG 871 ==
LOC: EMR 10:35 → EDBEDREQ 11:55 → 2E 12:22 → 4E 04-26 17:00 → SDSOVERFLO 04-30 11:40 → 4E 04-30 11:42
DX: A41.9 Sepsis, unspecified organism (principal); G93.41 Metabolic encephalopathy; K43.6 Other and unspecified ventral hernia with obstruction, without gangrene; N17.9 Acute kidney failure, unspecified; E87.1 Hypo-osmolality and hyponatremia; K56.7 Ileus, unspecified; N39.0 Urinary tract infection, site not specified; M62.82 Rhabdomyolysis; E87.0 Hyperosmolality and hypernatremia; N40.1 Benign prostatic hyperplasia with lower urinary tract symptoms; Q54.9 Hypospadias, unspecified; N35.911 Unspecified urethral stricture, male, meatal; B96.1 Klebsiella pneumoniae [K. pneumoniae] as the cause of diseases classified elsewhere; N31.9 Neuromuscular dysfunction of bladder, unspecified; N35.811 Other urethral stricture, male, meatal; D35.02 Benign neoplasm of left adrenal gland; E11.9 Type 2 diabetes mellitus without complications; E78.5 Hyperlipidemia, unspecified; N18.9 Chronic kidney disease, unspecified; F29 Unspecified psychosis not due to a substance or known physiological condition
CPT/HCPCS: 36415; 71045; 74018; 74176; 76770; 80048; 80053; 80061; 80202; 81001; 82248; 82533; 82550; 82977; 83036; 83605; 83690; 83735; 83880; 84100; 84443; 84550; 85007; 85025; 85651; 85730; 86140; 87040; 87086; 87181; 89050; 93005; 93306; 96361; 96365; 96375; 99285; C9399; J2405; J8499